=== PATIENT | male | born 1935 | race American Indian/Alaskan Native ===

== ENCOUNTER 2020-12-11 14:26 | Emergency (ER) | payer MEDICARE ==
--- NOTE | 2020-12-11 14:56 | Emergency Department Report ---
ED Syncope [facility] - General Stated Complaint: SYNCOPE Time Seen by Provider: 12/11/20 14:55 - History of Present Illness Initial Comments: Patient was brought in by EMS secondary to syncope. He was at dialysis. He was sitting. He passed out for about 15 seconds according to paramedics. According to EMS, the dialysis staff said that he was altered for about 20 minutes. They transported the patient here. He has not been altered for them. He has been awake and lucid. Patient has no recollection of the event. His only complaint is of nausea. He states that he just has an upset stomach. There is no chest pain or shortness of breath it is no back pain. Is no abdominal pain. He has not had any kind of fevers or chills. Patient states that he has passed out multiple times before. - Related Data Allergies/Adverse Reactions: Allergies No Known Allergies Allergy (Verified 12/11/20 16:04) ED Review of Systems ROS: Stated complaint: SYNCOPE Other details as noted in HPI ED Course Vital Signs 12/11/20 12/11/20 12/11/20 11:46 12:00 15:25 Pulse Rate 82 95 H 69 Blood Pressure 141/79 O2 Sat by Pulse 100 100 100 Oximetry 12/11/20 12/11/20 15:31 15:45 Pulse Rate 70 69 Blood Pressure O2 Sat by Pulse 100 99 Oximetry - Reevaluation(s) Reevaluation #1: 12/11/20 14:56 EMS was met. IV and labs ordered. ED Medical Decision Making - Lab Data Result diagrams: 12/11/20 15:04 12/11/20 15:04 - Medical Decision Making Labs of been noted. I did have a long discussion with the patient. He states that he feels well and would like to go home. We discussed the fact that his troponin was elevated. He states that it has been elevated before. He is not having chest pain. He does not feel short of breath. He does not want to be here. He states that he just wants to go home. We have had a discussion about the risk, benefits, and alternatives of this given the fact that we do not have old labs for comparison. He voices understanding and does have the capacity to make this decision at this time. He was invited to return but ultimately was discharged. Critical care attestation.: If time is entered above; I have spent that time in minutes in the direct care of this critically ill patient, excluding procedure time. ED Disposition Clinical Impression: ESRD (end stage renal disease) on dialysis, Elevated troponin Syncope Qualifiers: Syncope type: unspecified Qualified Code(s): R55 - Syncope and collapse Disposition: 01 HOME / SELF CARE / HOMELESS Is pt being admited?: No Condition: Stable Instructions: Syncope (ED), Dialysis, Syncope Additional Instructions: Drink plenty water. Return for problems. Follow-up with your regular doctor and your advocacy director. Follow-up for ongoing dialysis. Return for problems or concerns. Referrals: PRIMARY CAREMD [Referring] - 3-5 Days LONA MEMBRENO MD [Staff Physician] - 3-5 Days
[2020-12-11 15:24] LABS: Hemoglobin 10.2 gm/dl (11.8-15.2); Mean Corpuscular HGB Conc 34 % (32-34); Mean Corpuscular Volume 89 fl (84-94); Platelet Count 159 K/mm3 (140-440); Red Blood Count 3.37 M/mm3 (3.65-5.03)
[2020-12-11 16:19] LABS: Calcium 8.6 mg/dL (8.4-10.2)
[2020-12-11 19:55] VITALS: BP 172/72
--- NOTE | 2020-12-17 14:40 | Electrocardiograph Report ---
[facility] Test Date: 2020-12-11 Test Time: 15:20:31 Pat Name: SANA NAM Department: Room: Gender: M Rolled [employer] Lacer: : 1935 Requested By: ELYSSA TATE Order Number: [id number] Reading MD: Farrukh Rice Measurements Intervals [place] Rate: 68 P: 0 ND: 72 QRS: 13 QRSD: 96 T: 36 QT: 420 QTc: 449 Interpretive Statements Sinus rhythm No previous ECG available for comparison Electronically Signed On 12-17-2020 14:40:16 EDT by Farrukh Rice
== END 2020-12-11 20:04 | disposition home or self-care (01) ==
LOC: ED 14:26
DX: N18.6 End stage renal disease (principal); Z99.2 Dependence on renal dialysis; R55 Syncope and collapse; R79.89 Other specified abnormal findings of blood chemistry
CPT/HCPCS: 36415; 80048; 84484; 85027; 93005; 99283

== ENCOUNTER 2021-03-16 16:10 | Inpatient (IN) | payer MEDICARE ==
--- NOTE | 2021-03-16 16:49 | Emergency Department Report ---
ED General Adult HPI - General Stated complaint: BRADYCARDIA Time Seen by Provider: 03/16/21 16:44 Source: patient, old records reviewed Mode of arrival: Stretcher - History of Present Illness Initial comments: Chief complaint low heart rate HPI: This is an 85-year-old male with history of end-stage renal disease on hemodialysis Tuesday, GI bleed, CVA hypertension diabetes mellitus who presents with low heart rate at dialysis center. EMS reported heart rate 33 beats a minute. Patient normotensive. Patient is a poor historian. Unable to answer questions. Suspect dementia. On previous EKGs available in the electronic record, patient has had sinus rhythm and atrial fibrillation without bradycardia. -: unknown Severity scale (0 -10): 0 Consistency: constant Improves with: none Worsens with: none Associated Symptoms: denies other symptoms - Related Data Home Medications Medication Instructions Recorded Confirmed Last Taken AtorvaSTATin [Lipitor] 20 mg PO QHS 01/21/21 02/17/21 01/19/21 21:00 Acetaminophen [Acetaminophen TAB] 500 mg PO Q6HR 02/17/21 02/17/21 Unknown Brimonidine 0.15% [Alphagan P 1 drops OD BID 02/17/21 02/17/21 Unknown 0.15%] Cholecalciferol (Vitamin D3) 50,000 unit PO 2XW 02/17/21 02/17/21 Unknown [Vitamin D3 50,000UNIT CAP] Colloidal Oatmeal [Eucerin Eczema 226 gm TP Q4H 02/17/21 02/17/21 Unknown Relief] Docusate Sodium [Dok] 100 mg PO QDAY 02/17/21 02/17/21 Unknown Dorzolamide HCl/Timolol Maleat 1 drop OD BID 02/17/21 02/17/21 Unknown [Dorzolamide-Timolol Eye Drops] Famotidine [Pepcid] 20 mg PO BID 02/17/21 02/17/21 Unknown Hydrocortisone/Aloe Vera 0 gm TP TID 02/17/21 02/17/21 Unknown [Hydrocortisone-Aloe 0.5% Cream] Insulin Glargine,Hum.rec.anlog 9 units SQ QHS 02/17/21 02/17/21 Unknown [Lantus Solostar] LORazepam [Ativan] 1 mg PO Q6H PRN 02/17/21 02/17/21 Unknown Latanoprost 0.005% 1 drop OD QHS 02/17/21 02/17/21 Unknown Metoprolol Xl [Metoprolol 25 mg PO BID 02/17/21 02/17/21 Unknown SUCCINATE ER TAB] OLANZapine [Zyprexa] 5 mg PO QDAY 02/17/21 02/17/21 Unknown Phenyleph/Mineral Oil/Petrolat 28 gm RC QDAY 02/17/21 02/17/21 Unknown [Preparation H Ointment] Sevelamer Carbonate [Renvela] 1,600 mg PO TID 02/17/21 02/17/21 Unknown diphenhydrAMINE [Benadryl CAP] 25 mg PO 3XW 02/17/21 02/17/21 Unknown diphenhydrAMINE [Benadryl CAP] 25 mg PO Q6HR PRN 02/17/21 02/17/21 Unknown hydrOXYzine HCL [Atarax] 25 mg PO Q6HR PRN 02/17/21 02/17/21 Unknown lisinopriL [Lisinopril] 20 mg PO QDAY 02/17/21 02/17/21 Unknown Previous Rx's Medication Instructions Recorded Last Taken Type Lispro Insulin [HumaLOG] 0 unit SUB-Q ACHS units 02/01/21 Unknown Rx Sodium Chloride 0.9% Int [Sodium 10 ml IV BID syringe 02/01/21 Unknown Rx Chloride Flush Syringe 10 ml] diphenhydrAMINE/ZINC 2% [Banophen 1 applic TP Q8H PRN tube 02/01/21 Unknown Rx Anti-Itch] hydrOXYzine PAMOATE [Vistaril] 25 mg PO Q6H PRN capsule 02/01/21 Unknown Rx Allergies Allergy/AdvReac Type Severity Reaction Status Date / Time No Known Allergies Allergy Verified 12/11/20 16:04 ED Review of Systems ROS: Stated complaint: BRADYCARDIA Other details as noted in HPI Comment: Unobtainable due to pts medical conditions (senility, dementia) Constitutional: denies: chills, fever, malaise Respiratory: denies: cough, shortness of breath Cardiovascular: denies: chest pain Gastrointestinal: denies: abdominal pain, nausea, vomiting ED Past Medical Hx - Past Medical History Previous Medical History?: Yes Hx Hypertension: Yes Hx CVA: Yes Hx Diabetes: Yes Hx Renal Disease: Yes (dialysis , Th, Sat) Hx Dementia: Yes - Social History Smoking Status: Never Smoker Substance Use Type: None - Medications Home Medications: Home Medications Medication Instructions Recorded Confirmed Last Taken Type AtorvaSTATin [Lipitor] 20 mg PO QHS 01/21/21 02/17/21 01/19/21 21:00 History Lispro Insulin [HumaLOG] 0 unit SUB-Q ACHS units 02/01/21 02/17/21 Unknown Rx Sodium Chloride 0.9% Int [Sodium 10 ml IV BID syringe 02/01/21 02/17/21 Unknown Rx Chloride Flush Syringe 10 ml] diphenhydrAMINE/ZINC 2% [Banophen 1 applic TP Q8H PRN tube 02/01/21 02/17/21 Unknown Rx Anti-Itch] hydrOXYzine PAMOATE [Vistaril] 25 mg PO Q6H PRN capsule 02/01/21 02/17/21 Unknown Rx Acetaminophen [Acetaminophen TAB] 500 mg PO Q6HR 02/17/21 02/17/21 Unknown His tory Brimonidine 0.15% [Alphagan P 1 drops OD BID 02/17/21 02/17/21 Unknown History 0.15%] Cholecalciferol (Vitamin D3) 50,000 unit PO 2XW 02/17/21 02/17/21 Unknown History [Vitamin D3 50,000UNIT CAP] Colloidal Oatmeal [Eucerin Eczema 226 gm TP Q4H 02/17/21 02/17/21 Unknown History Relief] Docusate Sodium [Dok] 100 mg PO QDAY 02/17/21 02/17/21 Unknown History Dorzolamide HCl/Timolol Maleat 1 drop OD BID 02/17/21 02/17/21 Unknown History [Dorzolamide-Timolol Eye Drops] Famotidine [Pepcid] 20 mg PO BID 02/17/21 02/17/21 Unknown History Hydrocortisone/Aloe Vera 0 gm TP TID 02/17/21 02/17/21 Unknown History [Hydrocortisone-Aloe 0.5% Cream] Insulin Glargine,Hum.rec.anlog 9 units SQ QHS 02/17/21 02/17/21 Unknown History [Lantus Solostar] LORazepam [Ativan] 1 mg PO Q6H PRN 02/17/21 02/17/21 Unknown History Latanoprost 0.005% 1 drop OD QHS 02/17/21 02/17/21 Unknown History Metoprolol Xl [Metoprolol 25 mg PO BID 02/17/21 02/17/21 Unknown History SUCCINATE ER TAB] OLANZapine [Zyprexa] 5 mg PO QDAY 02/17/21 02/17/21 Unknown History Phenyleph/Mineral Oil/Petrolat 28 gm RC QDAY 02/17/21 02/17/21 Unknown History [Preparation H Ointment] Sevelamer Carbonate [Renvela] 1,600 mg PO TID 02/17/21 02/17/21 Unknown History diphenhydrAMINE [Benadryl CAP] 25 mg PO 3XW 02/17/21 02/17/21 Unknown History diphenhydrAMINE [Benadryl CAP] 25 mg PO Q6HR PRN 02/17/21 02/17/21 Unknown History hydrOXYzine HCL [Atarax] 25 mg PO Q6HR PRN 02/17/21 02/17/21 Unknown History lisinopriL [Lisinopril] 20 mg PO QDAY 02/17/21 02/17/21 Unknown History ED Physical Exam - General General appearance: alert, in no apparent distress - Head Head exam: Present: atraumatic, normocephalic - Eye Eye exam: Present: normal appearance - ENT ENT exam: Present: mucous membranes moist - Neck Neck exam: Present: normal inspection, full ROM - Respiratory Respiratory exam: Present: normal lung sounds bilaterally. Absent: respiratory distress, wheezes, rales, rhonchi - Cardiovascular Cardiovascular Exam: Present: normal rhythm, bradycardia, normal heart sounds. Absent: systolic murmur, diastolic murmur, rubs, gallop - GI/Abdominal GI/Abdominal exam: Present: soft, normal bowel sounds. Absent: distended, tenderness, guarding, rebound - Rectal Rectal exam: Present: deferred - Extremities Exam Extremities exam: Present: normal inspection - Neurological Exam Neurological exam: Present: alert, oriented X3 - Psychiatric Psychiatric exam: Present: normal affect, normal mood - Skin Skin exam: Present: warm, dry, intact, normal color. Absent: rash ED Course Vital Signs 03/16/21 03/16/21 03/16/21 16:13 16:29 18:00 Pulse Rate 33 L 33 L Respiratory 15 Rate Blood Pressure 116/49 116/49 Blood Pressure 110/45 [Right] O2 Sat by Pulse 99 100 Oximetry ED Medical Decision Making - Lab Data Result diagrams: 03/16/21 17:15 03/16/21 17:15 Laboratory Results - last 24 hr 03/16/21 03/16/21 03/16/21 17:15 17:15 17:15 WBC 3.6 L RBC 2.62 L Hgb 7.7 L Hct 23.9 L MCV 91 MCH 29 MCHC 32 RDW 21.8 H Plt Count 71 L Lymph % (Auto) 9.6 L [place] % (Auto) 5.2 Eos % (Auto) 3.5 Baso % (Auto) 0.3 Lymph # (Auto) 0.3 L [place] # (Auto) 0.2 Eos # (Auto) 0.1 Baso # (Auto) 0.0 Seg Neutrophils % 81.2 H Seg Neutrophils # 3.0 PT 14.5 INR 1.02 APTT 47.7 H Sodium 141 Potassium 3.5 L Chloride 106.1 Carbon Dioxide 23 Anion Gap 15 BUN 31 H Creatinine 4.1 H Estimated GFR 17 BUN/Creatinine Ratio 8 Glucose 143 H Calcium 8.8 Total Bilirubin < 0.20 AST 25 ALT 29 Alkaline Phosphatase 133 H Troponin T 0.047 H Total Protein 5.8 L Albumin 2.5 L Albumin/Globulin Ratio 0.8 Triglycerides 40 Cholesterol 77 LDL Cholesterol Direct 17 L HDL Cholesterol 54 Cholesterol/HDL Ratio 1.42 TSH 03/16/21 18:14 WBC RBC Hgb Hct MCV MCH MCHC RDW Plt Count Lymph % (Auto) [place] % (Auto) Eos % (Auto) Baso % (Auto) Lymph # (Auto) [place] # (Auto) Eos # (Auto) Baso # (Auto) Seg Neutrophils % Seg Neutrophils # PT INR APTT Sodium Potassium Chloride Carbon Dioxide Anion Gap BUN Creatinine Estimated GFR BUN/Creatinine Ratio Glucose Calcium Total Bilirubin AST ALT Alkaline Phosphatase Troponin T Total Protein Albumin Albumin/Globulin Ratio Triglycerides Cholesterol LDL Cholesterol Direct HDL Cholesterol Cholesterol/HDL Ratio TSH 3.850 - EKG Data -: EKG Interpreted by Me - EKG Data 03/16/21 17:21 EKG obtained 1704 EKG interpreted by me Junctional rhythm rate 30 bpm normal axis prolonged QTC no ST elevation - Radiology Data Radiology results: report reviewed Patient Name: SANA NAM JR Gender: Male Date of : 1935 Referring Provider: VEDA SHETH Organization: [facility] Accession Number: [id number] Requested Date: March 16, 2021 16:44 Report Status: Final Requested Procedure: 1 Procedure Description: XR chest 1V ap Modality: XR Findings Reporting MD: Trevor Kendall Dictation Time: March 16, 2021 16:13 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 COMPARISON: 02/16/2021 FINDINGS: SUPPORT DEVICES: Right chest wall port is stable. HEART /PULMONARY VASCULATURE: Heart is enlarged with pulmonary vasculature congestion. LUNGS / PLEURA: Patchy bibasilar airspace opacities likely reflect edema. No sizable pleural effusion. No pneumothorax. IMPRESSION: Patchy bibasilar airspace opacities likely reflect edema in the setting of CHF/volume overload. Unable to exclude superimposed pneumonia. Signer Name: Trevor Kendall MD Signed: 03/16/2021 4:13 PM Workstation Name: [id number] - Medical Decision Making Bradycardia with junctional rhythm differential diagnosis includes sick sinus syndrome, adverse effect of beta-blockade, myxedema coma, myocardial infarction. Potassium is normal. Self Contained Behavior Unit Teacher Dr. Edwards recommended pacer pads and observation. Admitted to stepdown in fair condition. External pacer pads in place. I discussed case with public health sanitarian Dr. Weathers who agreed to consult. TSH potassium normal. equivoval troponin, pulmonary edema on cxr Critical Care Time: Yes Critical care time in (mins) excluding proc time.: 40 Critical care attestation.: If time is entered above; I have spent that time in minutes in the direct care of this critically ill patient, excluding procedure time. 40 minutes of critical care time excluding procedures were used in the care of the patient. I came immediately to the bedside upon patient's arrival. I obtained history from EMS at the bedside. I discussed treatment plan with the nursing team members. I reviewed electronic record. Patient required multiple interventions and reassessments. ED Disposition Clinical Impression: Junctional rhythm, Sick sinus syndrome, End stage renal disease, Pulmonary pardeep a Disposition: 09 ADMITTED INPATIENT Is pt being admited?: Yes Does the pt Need Aspirin: No Condition: Fair Instructions: Pulmonary Edema (ED)
--- NOTE | 2021-03-16 17:17 | XRay Report ---
XR chest 1V ap INDICATION / CLINICAL INFORMATION: bradycardia. COMPARISON: 02/16/2021 FINDINGS: SUPPORT DEVICES: Right chest wall port is stable. HEART /PULMONARY VASCULATURE: Heart is enlarged with pulmonary vasculature congestion. LUNGS / PLEURA: Patchy bibasilar airspace opacities likely reflect edema. No sizable pleural effusion . No pneumothorax. IMPRESSION: Patchy bibasilar airspace opacities likely reflect edema in the setting of CHF/volume overload. Unabl e to exclude superimposed pneumonia. Signer Name: Trevor Kendall MD Signed: 03/16/2021 5:13 PM Workstation Name: [id number]
[2021-03-16 17:30] LABS: Hematocrit 23.9 % (35.5-45.6); Hemoglobin 7.7 gm/dl (11.8-15.2); Mean Corpuscular HGB Conc 32 % (32-34); Mean Corpuscular Volume 91 fl (84-94); Red Blood Count 2.62 M/mm3 (3.65-5.03)
[2021-03-16 17:33] LABS: Basophils % (Auto) 0.3 % (0.0-1.8); Eosinophils % (Auto) 3.5 % (0.0-4.3); Lymphocytes % (Auto) 9.6 % (13.4-35.0); Monocytes % (Auto) 5.2 % (0.0-7.3); Platelet Count 71 K/mm3 (140-440); Red Cell Distribution Width 21.8 % (13.2-15.2)
[2021-03-16 17:34] LABS: Eosinophils # (Auto) 0.1 K/mm3 (0.0-0.4); Lymphocytes # (Auto) 0.3 K/mm3 (1.2-5.4); Monocytes # (Auto) 0.2 K/mm3 (0.0-0.8)
[2021-03-16 17:40] LABS: INR 1.02 (0.87-1.13)
[2021-03-16 17:41] LABS: Partial Thromboplastin Time 47.7 Sec. (24.2-36.6)
[2021-03-16 17:55] LABS: Alanine Aminotransferase 29 units/L (7-56); Albumin 2.5 g/dL (3.9-5); Blood Urea Nitrogen 31 mg/dL (9-20); Calcium 8.8 mg/dL (8.4-10.2); Hemolysis Index 6
[2021-03-16 17:56] LABS: BUN/Creatinine Ratio 8
[2021-03-16 18:06] LABS: Chol/HDL Ratio 1.42 %; HDL Cholesterol 54 mg/dL (40-59); LDL Cholesterol,Direct 17 mg/dL (50-130)
[2021-03-16] MEDS ORDERED: ACETAMINOPHEN 325 MG TAB PO PRN (18:54)
[2021-03-16] MEDS ORDERED: oxyCODONE /ACETAMINOPHEN 5-325MG TAB PO PRN (18:54)
[2021-03-16] MEDS ORDERED: ONDANSETRON 4 MG/2 ML INJ IV PRN (18:54)
[2021-03-16] MEDS ORDERED: HYDROmorphone 1 MG/1 ML INJ IV PRN (18:54)
[2021-03-16] MEDS ORDERED: ALBUTEROL 2.5 MG/3 ML NEBU IH PRN (18:54)
[2021-03-16] MEDS ORDERED: hydrOXYzine HCL 25 MG TAB PO PRN (18:57)
[2021-03-16] MEDS ORDERED: LORazepam 1 MG TAB PO PRN (18:57)
[2021-03-16] MEDS ORDERED: diphenhydrAMINE/ZINC ACET 2% CREAM 28.4 GM TP PRN (18:57)
--- NOTE | 2021-03-16 19:20 | History and Physical Report ---
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 Patient has diminished cognition and is unable to provide detailed history. Patient history provided as per ED staff, EMS staff, as well as personal detention staff. As per personal detention staff the patient was sent to dialysis today. Patient was found to have a heart rate in the 30s while undergoing dialysis. In his usual state of health prior to his dialysis. Patient returned from dialysis and was found to be confused and "not acting like himself". Patient experienced worsening symptoms over the ensuing timeframe. EMS was notified and upon arrival the patient was found to be in distress and subsequently transported to [facility] for further care and evaluation of the aforementioned symptoms. The patient was seen and evaluated in the emergency department. All lab and imaging studies reviewed. Patient found to have a systolic blood pressure in the 90s as well as clinical symptoms consistent with sick sinus syndrome. Patient with chest x-ray and was found to have evidence of pneumonia, metabolic encephalopathy, end-stage renal disease. Patient admitted to telemetry floor and initiated on pneumonia protocol. Nephrology team consulted in ED. Cardiology team consulted in ED. Patient is confused at time of my evaluation but has a positive gag reflex and is able to protect his airway. Per admission on 02/17/2021 reviewed. All medication listed at time of admission has been reconciled. Advanced care planning conducted in ED. Past History Past Medical History: diabetes, ESRD, hypertension, stroke Past Surgical History: Other (Dialysis access) Social history: . denies: smoking, alcohol abuse, prescription drug abuse Family history: diabetes, hypertension Medications and Allergies Allergies Allergy/AdvReac Type Severity Reaction Status Date / Time No Known Allergies Allergy Verified 12/11/20 16:04 Home Medications Medication Instructions Recorded Confirmed Last Taken Type AtorvaSTATin [Lipitor] 20 mg PO QHS 01/21/21 02/17/21 01/19/21 21:00 History Lispro Insulin [HumaLOG] 0 unit SUB-Q ACHS units 02/01/21 02/17/21 Unknown Rx Sodium Chloride 0.9% Int [Sodium 10 ml IV BID syringe 02/01/21 02/17/21 Unknown Rx Chloride Flush Syringe 10 ml] diphenhydrAMINE/ZINC 2% [Banophen 1 applic TP Q8H PRN tube 02/01/21 02/17/21 Unknown Rx Anti-Itch] hydrOXYzine PAMOATE [Vistaril] 25 mg PO Q6H PRN capsule 02/01/21 02/17/21 Unknown Rx Acetaminophen [Acetaminophen TAB] 500 mg PO Q6HR 02/17/21 02/17/21 Unknown History Brimonidine 0.15% [Alphagan P 1 drops OD BID 02/17/21 02/17/21 Unknown History 0.15%] Cholecalciferol (Vitamin D3) 50,000 unit PO 2XW 02/17/21 02/17/21 Unknown History [Vitamin D3 50,000UNIT CAP] Colloidal Oatmeal [Eucerin Eczema 226 gm TP Q4H 02/17/21 02/17/21 Unknown History Relief] Docusate Sodium [Dok] 100 mg PO QDAY 02/17/21 02/17/21 Unknown History Dorzolamide HCl/Timolol Maleat 1 drop OD BID 02/17/21 02/17/21 Unknown History [Dorzolamide-Timolol Eye Drops] Famotidine [Pepcid] 20 mg PO BID 02/17/21 02/17/21 Unknown History Hydrocortisone/Aloe Vera 0 gm TP TID 02/17/21 02/17/21 Unknown History [Hydrocortisone-Aloe 0.5% Cream] Insulin Glargine,Hum.rec.anlog 9 units SQ QHS 02/17/21 02/17/21 Unknown History [Lantus Solostar] LORazepam [Ativan] 1 mg PO Q6H PRN 02/17/21 02/17/21 Unknown History Latanoprost 0.005% 1 drop OD QHS 02/17/21 02/17/21 Unknown History Metoprolol Xl [Metoprolol 25 mg PO BID 02/17/21 02/17/21 Unknown History SUCCINATE ER TAB] OLANZapine [Zyprexa] 5 mg PO QDAY 02/17/21 02/17/21 Unknown History Phenyleph/Mineral Oil/Petrolat 28 gm RC QDAY 02/17/21 02/17/21 Unknown History [Preparation H Ointment] Sevelamer Carbonate [Renvela] 1,600 mg PO TID 02/17/21 02/17/21 Unknown History diphenhydrAMINE [Benadryl CAP] 25 mg PO 3XW 02/17/21 02/17/21 Unknown History diphenhydrAMINE [Benadryl CAP] 25 mg PO Q6HR PRN 02/17/21 02/17/21 Unknown History hydrOXYzine HCL [Atarax] 25 mg PO Q6HR PRN 02/17/21 02/17/21 Unknown History lisinopriL [Lisinopril] 20 mg PO QDAY 02/17/21 02/17/21 Unknown History Active Meds: Active Medications Acetaminophen (Acetaminophen 325 Mg Tab) 650 mg PO Q4H PRN PRN Reason: Pain MILD(1-3)/Fever >100.5/LOCKE Albuterol (Albuterol 2.5 Mg/3 Ml Nebu) 2.5 mg IH Q4HRT PRN PRN Reason: Shortness Of Breath Atorvastatin Calcium (Atorvastatin 20 Mg Tab) 20 mg PO QHS [facility] Docusate Sodium (Docusate Sodium 100 Mg Cap) 100 mg PO QDAY [facility] Famotidine (Famotidine 20 Mg Tab) 20 mg PO BID [facility] Hydromorphone HCl (Hydromorphone 1 Mg/1 Ml Inj) 0.5 mg IV Q23H PRN PRN Reason: Pain , Severe (7-10) Hydroxyzine HCl (Hydroxyzine Hcl 25 Mg Tab) 25 mg PO Q6HR PRN PRN Reason: Itching Ceftriaxone Sodium (Rocephin/Ns 2 Gm/100 Ml) 2 gm in 100 mls @ 200 mls/hr IV Q24H [facility]; Protocol Azithromycin (Zithromax/Ns) 500 mg in 250 mls @ 250 mls/hr IV Q24H [facility]; Protocol Insulin Glargine (Insulin Glargine 100 Units/Ml) 9 units SUB-Q QHS [facility] Latanoprost (Latanoprost 0.005% Ophth Soln 2.5 Ml) 1 drops OD QHS [facility] Lisinopril (Lisinopril 20 Mg Tab) 20 mg PO QDAY [facility] Lorazepam (Lorazepam 1 Mg Tab) 1 mg PO Q6H PRN PRN Reason: Anxiety Metoprolol Succinate (Metoprolol Succinate Xl 25 Mg Tab) 25 mg PO BID [facility] Miscellaneous Medication (Dorzolamide Hcl/Timolol Maleat [Dorzolamide-Timolol Eye Drops]) 1 drop OD BID [facility] Olanzapine (Olanzapine 5 Mg Tab) 5 mg PO QDAY [facility] Ondansetron HCl (Ondansetron 4 Mg/2 Ml Inj) 4 mg IV Q8H PRN PRN Reason: Nausea And Vomiting Oxycodone/Acetaminophen (Oxycodone /Acetaminophen 5-325mg Tab) 1 tab PO Q16H PRN PRN Reason: Pain, Moderate (4-6) Phenyleph/Shark Oil/Min Oil/Petrol (Pe/Mo/Pet,Wh 10 Applic/28 Gm Tube) 1 applic ID QDAY [facility] Sevelamer Carbonate (Sevelamer Carbonate 800 Mg Tab) 1,600 mg PO TID [facility] Sodium Chloride (Sodium Chloride 0.9% 10 Ml Flush Syringe) 10 ml IV BID [facility] Sodium Chloride (Sodium Chloride 0.9% 10 Ml Flush Syringe) 10 ml IV PRN PRN PRN Reason: LINE FLUSH Zinc Acetate/Diphenhydramine (Diphenhydramine/Zinc Acet 2% Cream 28.4 Gm) 1 applic TP Q8H PRN PRN Reason: Itching Review of Systems ROS unobtainable: due to mental status Exam - Constitutional Vitals: Temp Pulse Resp BP Pulse Ox 33 L 15 116/49 100 03/16/21 18:00 03/16/21 16:13 03/16/21 18:00 03/16/21 18:00 General appearance: Present: mild distress, obese - EENT Eyes: Present: PERRL ENT: hearing intact, clear oral mucosa - Neck Neck: Present: supple, normal ROM - Respiratory Respiratory effort: normal Respiratory: bilateral: CTA - Cardiovascular Heart Sounds: Present: S1 & S2. Absent: rub, click - Extremities Extremities: pulses symmetrical, No edema Peripheral Pulses: within normal limits - Abdominal General gastrointestinal: Present: soft, non-tender, non-distended, normal bowel sounds Male genitourinary: Present: normal - Integumentary Integumentary: Present: clear, warm, dry - Musculoskeletal Musculoskeletal: strength equal bilaterally, generalized weakness - Psychiatric Psychiatric: no appropriate mood/affect, no intact judgment & insight, no memory intact - Neurologic Neurologic: CNII-XII intact, no focal deficits, moves all extremities, no gait normal HEART Score - HEART Score Troponin: Troponin T 0.047 ng/mL (0.00-0.029) H 03/16/21 17:15 Results - Labs CBC & Chem 7: 03/16/21 17:15 03/16/21 17:15 Labs: Abnormal lab results 03/16/21 03/16/21 03/16/21 Range/Units 17:15 17:15 17:15 WBC 3.6 L (4.5-11.0) K/mm3 RBC 2.62 L (3.65-5.03) M/mm3 Hgb 7.7 L (11.8-15.2) gm/dl Hct 23.9 L (35.5-45.6) % RDW 21.8 H (13.2-15.2) % Plt Count 71 L (140-440) K/mm3 Lymph % (Auto) 9.6 L (13.4-35.0) % Lymph # (Auto) 0.3 L (1.2-5.4) K/mm3 Seg Neutrophils % 81.2 H (40.0-70.0) % APTT 47.7 H (24.2-36.6) Sec. Potassium 3.5 L (3.6-5.0) mmol/L BUN 31 H (9-20) mg/dL Creatinine 4.1 H (0.8-1.3) mg/dL Glucose 143 H (75-100) mg/dL Alkaline Phosphatase 133 H (35-129) units/L Troponin T 0.047 H (0.00-0.029) ng/mL Total Protein 5.8 L (6.3-8.2) g/dL Albumin 2.5 L (3.9-5) g/dL LDL Cholesterol Direct 17 L (50-130) mg/dL Assessment and Plan - Patient Problems (1) Pneumonia Current Visit: Yes Status: Acute Plan to address problem: Pneumonia protocol: Chest x-ray, CBC, CMP, supplemental oxygen, pulse oximetry, nebulizer therapy, IV antibiotic therapy, pulmonary toilet. (2) End stage renal disease Current Visit: Yes Status: Acute Plan to address problem: Nephrology team consulted in ED, dialysis as per renal team, monitor fluid balance, blood pressure control. (3) Sick sinus syndrome Current Visit: Yes Status: Acute Plan to address problem: Cardiology team consulted. Telemetry monitoring, further care and evaluation as per cardiology team. (4) Obesity hypoventilation syndrome Current Visit: Yes Status: Acute Plan to address problem: Balanced diet, increase physical activity discharge, (5) DVT prophylaxis Current Visit: Yes Status: Acute Plan to address problem: SCD to bilateral lower extremities while in bed (6) Advance care planning Current Visit: Yes Status: Acute Plan to address problem: Disease education doctor, care plan discussed, diagnosis discussed, prognosis discussed, patient is full code. Patient acknowledges understanding and ag reement with care plan, +30 minutes.
[2021-03-16] MEDS ORDERED: diphenhydrAMINE 50 MG/ML VIAL IV ONE (21:55)
[2021-03-16] MEDS ORDERED: INSULIN GLARGINE 100 UNITS/ML SUB-Q SCH (22:00)
[2021-03-16] MEDS ORDERED: NON-FORMULARY EACH (Insulin Glargine,Hum.Rec.Anlog [Lantus Solostar] 100 UNIT/ML Insuln.Pe SQ SCH (22:00)
[2021-03-16] MEDS ORDERED: FAMOTIDINE 20 MG TAB PO SCH (22:00)
[2021-03-16] MEDS: cefTRIAXone/NS 2 GM/100 ML 2 GM/100 ML BAG IV SCH (22:10)
[2021-03-17] MEDS: AZITHROMYCIN/NS 500 MG/250 ML 500 MG/250 ML BAG IV SCH ×2 (00:11→22:00)
[2021-03-17] MEDS: METOPROLOL SUCCINATE XL 25 MG TAB PO SCH ×2 (00:33→17:33)
[2021-03-17] MEDS: NON-FORMULARY EACH (Dorzolamide Hcl/Timolol Maleat [Dorzolamide-Timolol Eye Drops] 10 ML D OD SCH ×3 (00:35→22:41)
[2021-03-17] MEDS: SEVELAMER CARBONATE 800 MG TAB PO SCH ×4 (00:35→21:25)
--- NOTE | 2021-03-17 09:19 | Consultation ---
History of Present Illness - Reason for Consult Consult date: 03/17/21 end stage renal disease - History of Present Illness is an 85yo with ESRD on HD MWF, dementia, hypertension, legally blind who presented to the ED via EMS. During dialysis treatment, patient with HR in 30s. He was also noted to have change in mental status. Upon arrival to the ED, patient was hypotensive with SBP in 90s. He has been admitted for further management. Presently, patient with HR in 50s. He is currently on dopamine gtt. Past History Past Medical History: diabetes, ESRD, hypertension, stroke Past Surgical History: Other (Dialysis access) Social history: . denies: smoking, alcohol abuse, prescription drug abuse Family history: diabetes, hypertension Medications and Allergies Allergies Allergy/AdvReac Type Severity Reaction Status Date / Time No Known Allergies Allergy Verified 12/11/20 16:04 Home Medications Medication Instructions Recorded Confirmed Last Taken Type AtorvaSTATin [Lipitor] 20 mg PO QHS 01/21/21 02/17/21 01/19/21 21:00 History Lispro Insulin [HumaLOG] 0 unit SUB-Q ACHS units 02/01/21 02/17/21 Unknown Rx Sodium Chloride 0.9% Int [Sodium 10 ml IV BID syringe 02/01/21 02/17/21 Unknown Rx Chloride Flush Syringe 10 ml] diphenhydrAMINE/ZINC 2% [Banophen 1 applic TP Q8H PRN tube 02/01/21 02/17/21 Unknown Rx Anti-Itch] hydrOXYzine PAMOATE [Vistaril] 25 mg PO Q6H PRN capsule 02/01/21 02/17/21 Unknown Rx Acetaminophen [Acetaminophen TAB] 500 mg PO Q6HR 02/17/21 02/17/21 Unknown History Brimonidine 0.15% [Alphagan P 1 drops OD BID 02/17/21 02/17/21 Unknown History 0.15%] Cholecalciferol (Vitamin D3) 50,000 unit PO 2XW 02/17/21 02/17/21 Unknown History [Vitamin D3 50,000UNIT CAP] Colloidal Oatmeal [Eucerin Eczema 226 gm TP Q4H 02/17/21 02/17/21 Unknown History Relief] Docusate Sodium [Dok] 100 mg PO QDAY 02/17/21 02/17/21 Unknown History Dorzolamide HCl/Timolol Maleat 1 drop OD BID 02/17/21 02/17/21 Unknown History [Dorzolamide-Timolol Eye Drops] Famotidine [Pepcid] 20 mg PO BID 02/17/21 02/17/21 Unknown History Hydrocortisone/Aloe Vera 0 gm TP TID 02/17/21 02/17/21 Unknown History [Hydrocortisone-Aloe 0.5% Cream] Insulin Glargine,Hum.rec.anlog 9 units SQ QHS 02/17/21 02/17/21 Unknown History [Lantus Solostar] LORazepam [Ativan] 1 mg PO Q6H PRN 02/17/21 02/17/21 Unknown History Latanoprost 0.005% 1 drop OD QHS 02/17/21 02/17/21 Unknown History Metoprolol Xl [Metoprolol 25 mg PO BID 02/17/21 02/17/21 Unknown History SUCCINATE ER TAB] OLANZapine [Zyprexa] 5 mg PO QDAY 02/17/21 02/17/21 Unknown History Phenyleph/Mineral Oil/Petrolat 28 gm RC QDAY 02/17/21 02/17/21 Unknown History [Preparation H Ointment] Sevelamer Carbonate [Renvela] 1,600 mg PO TID 02/17/21 02/17/21 Unknown History diphenhydrAMINE [Benadryl CAP] 25 mg PO 3XW 02/17/21 02/17/21 Unknown History diphenhydrAMINE [Benadryl CAP] 25 mg PO Q6HR PRN 02/17/21 02/17/21 Unknown History hydrOXYzine HCL [Atarax] 25 mg PO Q6HR PRN 02/17/21 02/17/21 Unknown History lisinopriL [Lisinopril] 20 mg PO QDAY 02/17/21 02/17/21 Unknown History Active Meds: Active Medications Acetaminophen (Acetaminophen 325 Mg Tab) 650 mg PO Q4H PRN PRN Reason: Pain MILD(1-3)/Fever >100.5/LOCKE Albuterol (Albuterol 2.5 Mg/3 Ml Nebu) 2.5 mg IH Q4HRT PRN PRN Reason: Shortness Of Breath Atorvastatin Calcium (Atorvastatin 20 Mg Tab) 20 mg PO QHS [facility] Last Admin: 03/17/21 00:33 Dose: Not Given Docusate Sodium (Docusate Sodium 100 Mg Cap) 100 mg PO QDAY [facility] Famotidine (Famotidine 10 Mg Tab) 10 mg PO BID [facility] Hydromorphone HCl (Hydromorphone 1 Mg/1 Ml Inj) 0.5 mg IV Q23H PRN PRN Reason: Pain , Severe (7-10) Hydroxyzine HCl (Hydroxyzine Hcl 25 Mg Tab) 25 mg PO Q6HR PRN PRN Reason: Itching Ceftriaxone Sodium (Rocephin/Ns 2 Gm/100 Ml) 2 gm in 100 mls @ 200 mls/hr IV Q24H [facility]; Protocol Last Admin: 03/16/21 22:10 Dose: 200 mls/hr Azithromycin (Zithromax/Ns) 500 mg in 250 mls @ 250 mls/hr IV Q24H [facility]; Protocol Last Admin: 03/17/21 00:11 Dose: 250 mls/hr Insulin Glargine (Insulin Glargine 100 Units/Ml) 9 units SUB-Q QHS [facility] Last Admin: 03/17/21 00:11 Dose: 9 units Latanoprost (Latanoprost 0.005% Ophth Soln 2.5 Ml) 1 drops OD QHS [facility] Lisinopril (Lisinopril 20 Mg Tab) 20 mg PO QDAY [facility] Lorazepam (Lorazepam 1 Mg Tab) 1 mg PO Q6H PRN PRN Reason: Anxiety Metoprolol Succinate (Metoprolol Succinate Xl 25 Mg Tab) 25 mg PO BID [facility] Last Admin: 03/17/21 00:33 Dose: Not Given Miscellaneous Medication (Dorzolamide Hcl/Timolol Maleat [Dorzolamide-Timolol Eye Drops]) 1 drop OD BID [facility] Last Admin: 03/17/21 00:35 Dose: Not Given Olanzapine (Olanzapine 5 Mg Tab) 5 mg PO QDAY [facility] Ondansetron HCl (Ondansetron 4 Mg/2 Ml Inj) 4 mg IV Q8H PRN PRN Reason: Nausea And Vomiting Oxycodone/Acetaminophen (Oxycodone /Acetaminophen 5-325mg Tab) 1 tab PO Q16H PRN PRN Reason: Pain, Moderate (4-6) Phenyleph/Shark Oil/Min Oil/Petrol (Pe/Mo/Pet,Wh 10 Applic/28 Gm Tube) 1 applic OR QDAY [facility] Sevelamer Carbonate (Sevelamer Carbonate 800 Mg Tab) 1,600 mg PO TID [facility] Last Admin: 03/17/21 00:35 Dose: Not Given Sodium Chloride (Sodium Chloride 0.9% 10 Ml Flush Syringe) 10 ml IV BID [facility] Last Admin: 03/17/21 00:33 Dose: 10 ml Sodium Chloride (Sodium Chloride 0.9% 10 Ml Flush Syringe) 10 ml IV PRN PRN PRN Reason: LINE FLUSH Zinc Acetate/Diphenhydramine (Diphenhydramine/Zinc Acet 2% Cream 28.4 Gm) 1 applic TP Q8H PRN PRN Reason: Itching Review of Systems ROS unobtainable: due to mental status Exam - Vital Signs Vital signs: Vital Signs Pulse Resp BP Pulse Ox 33 L 15 110/45 99 03/16/21 16:13 03/16/21 16:13 03/16/21 16:13 03/16/21 16:13 - General Appearance General appearance: well-developed, well-nourished EENT: ATNC Respiratory: Decreased Breath Sounds Heart: bradycardia Gastrointestinal: Absent: tenderness, distended Integumentary: rash Musculoskeletal: Present: other Results - Lab Results 03/17/21 10:11 03/17/21 10:11 Most recent lab results Calcium 8.8 mg/dL (8.4-10.2) 03/16/21 17:15 Assessment and Plan Impression * End stage renal disease * Bradycardia secondary to beta brea vs other * Acute encephlopathy * 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 No acute need for HD today * Will schedule HD for tomorrow pending hemodynamic stability - resolution/improvement in bradycardia * Cardiology following * Transfuse pRBC - Hb <7 * Dose medications for renal function * Avoid potential nephrotoxins
[2021-03-17] MEDS ORDERED: NON-FORMULARY EACH (Docusate Sodium [Dok] 100 MG Tablet) PO SCH (10:00)
[2021-03-17] MEDS ORDERED: LISINOPRIL 20 MG TAB PO SCH (10:00)
[2021-03-17 11:03] LABS: Basophils % (Auto) 0.7 % (0.0-1.8); Eosinophils # (Auto) 0.1 K/mm3 (0.0-0.4); Eosinophils % (Auto) 1.9 % (0.0-4.3); Hematocrit 20.4 % (35.5-45.6); Hemoglobin 6.6 gm/dl (11.8-15.2); Lymphocytes # (Auto) 0.3 K/mm3 (1.2-5.4); Lymphocytes % (Auto) 6.5 % (13.4-35.0); Mean Corpuscular HGB Conc 33 % (32-34); Mean Corpuscular Volume 90 fl (84-94); Monocytes # (Auto) 0.2 K/mm3 (0.0-0.8); Monocytes % (Auto) 3.9 % (0.0-7.3); Red Blood Count 2.26 M/mm3 (3.65-5.03)
[2021-03-17 11:08] LABS: Platelet Count 68 K/mm3 (140-440); Red Cell Distribution Width 21.2 % (13.2-15.2)
[2021-03-17] MEDS ORDERED: DOPamine 800 MG/D5W 250ML 800 MG/250 ML BAG IV ONE (11:15)
[2021-03-17 11:26] LABS: Calcium 8.5 mg/dL (8.4-10.2)
[2021-03-17] MEDS: DOCUSATE SODIUM 100 MG CAP PO SCH (11:30)
[2021-03-17] MEDS: PE/MO/PET,WH 10 APPLIC/28 GM TUBE PR SCH (11:30)
[2021-03-17] MEDS: FAMOTIDINE 10 MG TAB PO SCH ×2 (11:30→22:48)
--- NOTE | 2021-03-17 13:18 | Consultation ---
History of Present Illness Consult date: 03/17/21 Requesting physician: VEDA SHETH Consult reason: other (Sick sinus syndrome) History of present illness: Patient is a 85-year-old male with a past medical history of end-stage renal disease on hemodialysis, hypertension, history of CVA, vascular dementia, cerebral atherosclerosis, and legally blind who was brought to the ED due to bradycardia during hemodialysis session. History is taken from chart due to patient altered mental status and unable to provide history. Per documentation patient went to hemodialysis and during session patient heart rate dropped into the 30s. When patient returned from dialysis patient was said to be confused. EMS was notified and patient was transported to [facility]. During hospital stay patient was found to have pneumonia on chest x-ra y, be bradycardic, and be hypothermic requiring bear hugger. Patient previously seen by our group for admission in January. Cardiology is consulted for sick sinus syndrome Past History Past Medical History: diabetes, ESRD, hypertension, stroke Past Surgical History: Other (Dialysis access) Social history: . denies: smoking, alcohol abuse, prescription drug abuse Family history: diabetes, hypertension Medications and Allergies Allergies Allergy/AdvReac Type Severity Reaction Status Date / Time No Known Allergies Allergy Verified 12/11/20 16:04 Home Medications Medication Instructions Recorded Confirmed Last Taken Type AtorvaSTATin [Lipitor] 20 mg PO QHS 01/21/21 02/17/21 01/19/21 21:00 History Lispro Insulin [HumaLOG] 0 unit SUB-Q ACHS units 02/01/21 02/17/21 Unknown Rx Sodium Chloride 0.9% Int [Sodium 10 ml IV BID syringe 02/01/21 02/17/21 Unknown Rx Chloride Flush Syringe 10 ml] diphenhydrAMINE/ZINC 2% [Banophen 1 applic TP Q8H PRN tube 02/01/21 02/17/21 Unknown Rx Anti-Itch] hydrOXYzine PAMOATE [Vistaril] 25 mg PO Q6H PRN capsule 02/01/21 02/17/21 Unknown Rx Acetaminophen [Acetaminophen TAB] 500 mg PO Q6HR 02/17/21 02/17/21 Unknown History Brimonidine 0.15% [Alphagan P 1 drops OD BID 02/17/21 02/17/21 Unknown History 0.15%] Cholecalciferol (Vitamin D3) 50,000 unit PO 2XW 02/17/21 02/17/21 Unknown History [Vitamin D3 50,000UNIT CAP] Colloidal Oatmeal [Eucerin Eczema 226 gm TP Q4H 02/17/21 02/17/21 Unknown History Relief] Docusate Sodium [Dok] 100 mg PO QDAY 02/17/21 02/17/21 Unknown History Dorzolamide HCl/Timolol Maleat 1 drop OD BID 02/17/21 02/17/21 Unknown History [Dorzolamide-Timolol Eye Drops] Famotidine [Pepcid] 20 mg PO BID 02/17/21 02/17/21 Unknown History Hydrocortisone/Aloe Vera 0 gm TP TID 02/17/21 02/17/21 Unknown History [Hydrocortisone-Aloe 0.5% Cream] Insulin Glargine,Hum.rec.anlog 9 units SQ QHS 02/17/21 02/17/21 Unknown History [Lantus Solostar] LORazepam [Ativan] 1 mg PO Q6H PRN 02/17/21 02/17/21 Unknown History Latanoprost 0.005% 1 drop OD QHS 02/17/21 02/17/21 Unknown History Metoprolol Xl [Metoprolol 25 mg PO BID 02/17/21 02/17/21 Unknown History SUCCINATE ER TAB] OLANZapine [Zyprexa] 5 mg PO QDAY 02/17/21 02/17/21 Unknown History Phenyleph/Mineral Oil/Petrolat 28 gm RC QDAY 02/17/21 02/17/21 Unknown History [Preparation H Ointment] Sevelamer Carbonate [Renvela] 1,600 mg PO TID 02/17/21 02/17/21 Unknown History diphenhydrAMINE [Benadryl CAP] 25 mg PO 3XW 02/17/21 02/17/21 Unknown History diphenhydrAMINE [Benadryl CAP] 25 mg PO Q6HR PRN 02/17/21 02/17/21 Unknown History hydrOXYzine HCL [Atarax] 25 mg PO Q6HR PRN 02/17/21 02/17/21 Unknown History lisinopriL [Lisinopril] 20 mg PO QDAY 02/17/21 02/17/21 Unknown History Active Meds: Active Medications Acetaminophen (Acetaminophen 325 Mg Tab) 650 mg PO Q4H PRN PRN Reason: Pain MILD(1-3)/Fever >100.5/LOCKE Albuterol (Albuterol 2.5 Mg/3 Ml Nebu) 2.5 mg IH Q4HRT PRN PRN Reason: Shortness Of Breath Atorvastatin Calcium (Atorvastatin 20 Mg Tab) 20 mg PO QHS [facility] Last Admin: 03/17/21 00:33 Dose: Not Given Docusate Sodium (Docusate Sodium 100 Mg Cap) 100 mg PO QDAY [facility] Last Admin: 03/17/21 11:30 Dose: Not Given Famotidine (Famotidine 10 Mg Tab) 10 mg PO BID [facility] Last Admin: 03/17/21 11:30 Dose: Not Given Hydromorphone HCl (Hydromorphone 1 Mg/1 Ml Inj) 0.5 mg IV Q23H PRN PRN Reason: Pain , Severe (7-10) Hydroxyzine HCl (Hydroxyzine Hcl 25 Mg Tab) 25 mg PO Q6HR PRN PRN Reason: Itching Ceftriaxone Sodium (Rocephin/Ns 2 Gm/100 Ml) 2 gm in 100 mls @ 200 mls/hr IV Q24H [facility]; Protocol Last Admin: 03/16/21 22:10 Dose: 200 mls/hr Azithromycin (Zithromax/Ns) 500 mg in 250 mls @ 250 mls/hr IV Q24H [facility]; Protocol Last Admin: 03/17/21 00:11 Dose: 250 mls/hr Dopamine HCl 800 mg/ Dextrose 250 mls @ 3.113 mls/hr IV TITR [facility]; Protocol Insulin Glargine (Insulin Glargine 100 Units/Ml) 9 units SUB-Q QHS [facility] Last Admin: 03/17/21 00:11 Dose: 9 units Latanoprost (Latanoprost 0.005% Ophth Soln 2.5 Ml) 1 drops OD QHS [facility] Lorazepam (Lorazepam 1 Mg Tab) 1 mg PO Q6H PRN PRN Reason: Anxiety Miscellaneous Medication (Dorzolamide Hcl/Timolol Maleat [Dorzolamide-Timolol Eye Drops]) 1 drop OD BID [facility] Last Admin: 03/17/21 11:30 Dose: Not Given Olanzapine (Olanzapine 5 Mg Tab) 5 mg PO QDAY [facility] Last Admin: 03/17/21 11:31 Dose: Not Given Ondansetron HCl (Ondansetron 4 Mg/2 Ml Inj) 4 mg IV Q8H PRN PRN Reason: Nausea And Vomiting Oxycodone/Acetaminophen (Oxycodone /Acetaminophen 5-325mg Tab) 1 tab PO Q16H PRN PRN Reason: Pain, Moderate (4-6) Phenyleph/Shark Oil/Min Oil/Petrol (Pe/Mo/Pet,Wh 10 Applic/28 Gm Tube) 1 applic TX QDAY [facility] Last Admin: 03/17/21 11:30 Dose: 1 applic Sevelamer Carbonate (Sevelamer Carbonate 800 Mg Tab) 1,600 mg PO TID [facility] Last Admin: 03/17/21 11:30 Dose: Not Given Sodium Chloride (Sodium Chloride 0.9% 10 Ml Flush Syringe) 10 ml IV BID [facility] Last Admin: 03/17/21 11:30 Dose: 10 ml Sodium Chloride (Sodium Chloride 0.9% 10 Ml Flush Syringe) 10 ml IV PRN PRN PRN Reason: LINE FLUSH Zinc Acetate/Diphenhydramine (Diphenhydramine/Zinc Acet 2% Cream 28.4 Gm) 1 applic TP Q8H PRN PRN Reason: Itching Review of Systems ROS unobtainable: due to mental status Physical Examination Vital Signs Pulse Resp BP Pulse Ox 33 L 15 110/45 99 03/16/21 16:13 03/16/21 16:13 03/16/21 16:13 03/16/21 16:13 General appearance: other (Altered mental status) HEENT: Positive: Mucus Membranes Dry Neck: Positive: trachea midline Cardiac: Positive: Regular Rhythm, Bradycardia Lungs: Positive: Wheezes Neuro: Positive: Other (Altered mental) Abdomen: Positive: Soft Skin: Positive: Cool Extremities: Present: upper extr. pulses. Absent: edema Results 03/17/21 10:11 03/17/21 10:11 Cardiac Enzymes 03/16/21 Range/Units 17:15 AST 25 (5-40) units/L Coagulation 03/16/21 Range/Units 17:15 PT 14.5 (12.2-14.9) Sec. INR 1.02 (0.87-1.13) APTT 47.7 H (24.2-36.6) Sec. Lipids 03/16/21 Range/Units 17:15 Triglycerides 40 (2-149) mg/dL Cholesterol 77 (50-199) mg/dL HDL Cholesterol 54 (40-59) mg/dL Cholesterol/HDL Ratio 1.42 % CBC 03/16/21 03/17/21 Range/Units 17:15 10:11 WBC 3.6 L 5.1 (4.5-11.0) K/mm3 RBC 2.62 L 2.26 L (3.65-5.03) M/mm3 Hgb 7.7 L 6.6 L (11.8-15.2) gm/dl Hct 23.9 L 20.4 L (35.5-45.6) % Plt Count 71 L 68 L (140-440) K/mm3 Lymph # (Auto) 0.3 L 0.3 L (1.2-5.4) K/mm3 Cecil # (Auto) 0.2 0.2 (0.0-0.8) K/mm3 Eos # (Auto) 0.1 0.1 (0.0-0.4) K/mm3 Baso # (Auto) 0.0 0.0 (0.0-0.1) K/mm3 Comprehensive Metabolic Panel 03/16/21 03/17/21 Range/Units 17:15 10:11 Sodium 141 145 (137-145) mmol/L Potassium 3.5 L 3.7 (3.6-5.0) mmol/L Chloride 106.1 110.2 H (98-107) mmol/L Carbon Dioxide 23 21 L (22-30) mmol/L BUN 31 H 34 H (9-20) mg/dL Creatinine 4.1 H 4.1 H (0.8-1.3) mg/dL Glucose 143 H 61 L (75-100) mg/dL Calcium 8.8 8.5 (8.4-10.2) mg/dL AST 25 (5-40) units/L ALT 29 (7-56) units/L Alkaline Phosphatase 133 H (35-129) units/L Total Protein 5.8 L (6.3-8.2) g/dL Albumin 2.5 L (3.9-5) g/dL - Imaging and Cardiology Echo: report reviewed Assessment and Plan Patient is a 85-year-old male with a past medical history of end-stage renal disease on hemodialysis, hypertension, history of CVA, vascular dementia, cerebral atherosclerosis, and legally blind who was brought to the ED due to bradycardia during hemodialysis session AMS PNA Bradycardia Hypotension ESRD on HD-nephrology Anemia H/O CVA Vascular dementia Echo 02/17/2021-EF 55 to 60%, moderate LVH, left ventricular diastolic function is normal, right ventricle systolic function is normal. Left and right atrium are normal in size. Plan: No EKG in chart EKG pending Patient currently on pacing pads however patient currently not being paced. Patient currently sinus heart rate trending in the 50s. No acute indication for pacemaker Due to hypotension and bradycardia will initiate dopamine drip No beta-blockers due to bradycardia No anticoagulation or antiplatelets due to anemia No NADIA/ARB due to hypotension and elevated creatinine. Will defer to nephrology for initiation of NADIA or ARB Patient seen in conjunction with Dr. Alonzo who agrees with this plan of care 30 minutes of critical care time spent on coordination of care for - Patient Problems (1) Bradycardia Current Visit: Yes Status: Acute (2) End stage renal disease Current Visit: Yes Status: Acute (3) Hypothermia Current Visit: Yes Status: Acute (4) Junctional rhythm Current Visit: Yes Status: Acute (5) Obesity hypoventilation syndrome Current Visit: Yes Status: Acute (6) Pneumonia Current Visit: Yes Status: Acute (7) Anemia Current Visit: No Status: Acute (8) Metabolic encephalopathy Current Visit: No Status: Acute
[2021-03-17] MEDS: DOPamine 800 MG in DEXTROSE 5% IN WATER 230 ML IV SCH (14:30)
[2021-03-17] MEDS ORDERED: DEXTROSE 50% IN WATER (25GM) 50 ML SYRINGE IV ONE ×2 (15:32→22:34)
[2021-03-17] MEDS ORDERED: DEXTROSE 50% IN WATER (25GM) 50 ML VIAL IV ONE (16:00)
[2021-03-17] MEDS: LATANOPROST 0.005% OPHTH SOLN 2.5 ML OD SCH (20:50)
[2021-03-17] MEDS: cefTRIAXone/NS 2 GM/100 ML 2 GM/100 ML BAG IV SCH (21:34)
[2021-03-18] MEDS ORDERED: DEXTROSE 50% IN WATER (25GM) 50 ML SYRINGE IV ONE ×2 (00:35→01:49)
[2021-03-18] MEDS: LATANOPROST 0.005% OPHTH SOLN 2.5 ML OD SCH ×2 (00:52→22:20)
--- NOTE | 2021-03-18 01:21 | XRay Report ---
CHEST 1 VIEW 03/18/2021 12:02 AM INDICATION / CLINICAL INFORMATION: Rales. COMPARISON: 03/16/21 FINDINGS: SUPPORT DEVICES: Right Port-A-Cath is unchanged. HEART / MEDIASTINUM: Stable. LUNGS / PLEURA: Bilateral pulmonary opacities are unchanged. No significant pleural effusion. No pneu mothorax. ADDITIONAL FINDINGS: No significant additional findings. IMPRESSION: 1. No significant change. Signer Name: Azam Gonzalez MD Signed: 03/18/2021 1:16 AM Workstation Name: [id number]
[2021-03-18] MEDS ORDERED: D10W 250 ML IV SOLN IV SCH (02:00)
[2021-03-18] MEDS: DEXTROSE 10% IN WATER 1,000 ML IV SCH ×3 (02:20→21:43)
[2021-03-18 05:32] LABS: Hematocrit 23.2 % (35.5-45.6); Hemoglobin 7.4 gm/dl (11.8-15.2); Mean Corpuscular HGB Conc 32 % (32-34); Mean Corpuscular Volume 90 fl (84-94); Red Blood Count 2.57 M/mm3 (3.65-5.03)
[2021-03-18 05:39] LABS: Platelet Count 77 K/mm3 (140-440); Red Cell Distribution Width 20.8 % (13.2-15.2)
[2021-03-18 05:52] LABS: Calcium 8.4 mg/dL (8.4-10.2)
[2021-03-18] MEDS ORDERED: DEXTROSE 50% IN WATER (25GM) 50 ML VIAL IV ONE ×2 (06:00→20:16)
--- NOTE | 2021-03-18 07:49 | Progress Note ---
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 Patient has diminished cognition and is unable to provide detailed history. Patient history provided as per ED staff, EMS staff, as well as personal half-way staff. As per personal half-way staff the patient was sent to dialysis today. Patient was found to have a heart rate in the 30s while undergoing dialysis. In his usual state of health prior to his dialysis. Patient returned from dialysis and was found to be confused and "not acting like himself". Patient experienced worsening symptoms over the ensuing timeframe. EMS was notified and upon arrival the patient was found to be in distress and subsequently transported to [facility] for further care and evaluation of the aforementioned symptoms. The patient was seen and evaluated in the emergency department. All lab and imaging studies reviewed. Patient found to have a systolic blood pressure in the 90s as well as clinical symptoms consistent with sick sinus syndrome. Patient with chest x-ray and was found to have evidence of pneumonia, metabolic encephalopathy, end-stage renal disease. Patient admitted to telemetry floor and initiated on pneumonia protocol. Nephrology team consulted in ED. Cardiology team consulted in ED. Patient is confused at time of my evaluation but has a positive gag reflex and is able to protect his airway. Per admission on 02/17/2021 reviewed. All medication listed at time of admission has been reconciled. Advanced care planning conducted in ED. Bennie Anderson Brother: [phone] Yvonne Anderson Daughter : [phone] Hospital Course: 03/18/2021: Respiratory distress this a.m. requiring intubation. Patient was obtunded this morning per RN report consistent with my exam findings today. I have a high suspicion for adrenal insufficiency. Cardiology following currently for symptomatic bradycardia pulse rate currently 70s. Per cardiology note, no indication for pacemaker at this time, they are okay with weaning dopamine gtt. Patient currently initiated on Levophed gtt, hydrocortisone, vanco/cefepime IV. Will continue to support with IVF, monitor UOP however suspect that this patient is anuric. Discussed patient case with care home caregiver and patient brother. Patient brother states that there is no spouse however patient has multiple children. Patient brother states that there is a daughter who is local to [place]. Her number was provided. Case management consulted for discharge planning Assessment and Plan: #Acute hypoxic respiratory failure -Hypoxic, not protecting airway on 03/18 encounter Intubated 03/18 Mechanical ventilator management per critical care Sedation with fentanyl, avoid propofol and Precedex due to bradycardia Daily SAT/SBT trials -ABG/CXR every 48 hour Discussed case with supervisor net making Dr. Arrieta #Septic shock -Hypotensive, hypothermic on admission, leukopenic - Bcx, Scx, Ucx -LA ordered Initiate Levophed drip, maintain MAP greater than 65 Antibiotic therapy with vancomycin IV, cefepime IV #Pneumonia - CXR - vancomycin/Cefepime - SCx #Symptomatic bradycardia - EK, junctional rhythm apparent. Was not pacing. - ECHO 1-2 mo ago: normal study 55-60%. - Rate in 30's per reports, was in 50's on my encounter - cardiology consulted, no indication for ppm, doubt , has initiated on dopamine gtt, wean as tolerated. #Adrenal insufficiency -Cortisol level was sent as was TSH = 3.8. -Hypotensive, hypothermic, hypoglycemic, hypokalemic on admission Hydrocortisone 100 mg iv q8hr initiated #ESRD requiring hemodialysis -Creatinine 4.8 -Avoid nephrotoxins, renally adjust meds -Judicious fluid utilization as patient appears to be anuric -Nephrology consulted on admission #Obesity hypoventilation syndrome #Advance care planning Disease education conducted, care plan discussed, diagnoses discussed, prognosis discussed, patient is full code, patient acknowledges understanding and agree with care plan, +30 minutes. The high probability of a clinically significant, sudden or life threatening deterioration of the [multi] system(s) required my full and direct attention, intervention and personal management. The aggregate critical care time was [120] minutes. This time is in addition to time spent performing reported procedures but includes the following: [x] Data Review and interpretation [x] Patient assessment and monitoring of vital signs [x] Documentation [x] Medication orders and management History Interval history: Paged regarding this patient and worsening respiratory distress. Patient has been obtunded all morning. Sats were in 60s when I arrived to the room. Bag mask ventilation was initiated by care staff. Decision made to intubate patient which was completed successfully. Discussed case with critical care. Hospitalist Physical - Physical exam Narrative exam: Physical Exam: VITAL SIGNS: Reviewed. GENERAL: The patient appears normally developed, Vital signs as documented. intubated and sedated. respiratory distress prior to HEAD: No signs of head trauma. EYES: Pupils are equal. Extraocular motions intact. EARS: Hearing grossly intact. MOUTH: Oropharynx is normal. NECK: No adenopathy, no JVD. CHEST: Chest with clear breath sounds bilaterally. No wheezes, rales, or rhonchi. CARDIAC: Regular rate and rhythm. S1 and S2, without murmurs, gallops, or rubs. VASCULAR: No Edema. Peripheral pulses normal and equal in all extremities. ABDOMEN: Soft, non tender and non distended. No rebound or guarding, and no masses palpated. Bowel Sounds normal. MUSCULOSKELETAL: Good range of motion of all major joints. Extremities without clubbing, cyanosis or edema. NEUROLOGIC EXAM: sedated PSYCHIATRIC: sedated SKIN: detail exam as documented in skin assessment - Constitutional Vitals: Temp Pulse Resp BP Pulse Ox 95.4 F L 54 L 21 99/35 100 03/18/21 06:45 03/18/21 07:00 03/18/21 07:00 03/18/21 07:00 03/18/21 07:00 General appearance: Present: other (Altered mental status) HEART Score - HEART Score Troponin: Troponin T 0.047 ng/mL (0.00-0.029) H 03/16/21 17:15 Results - Labs CBC & Chem 7: 03/18/21 05:00 03/18/21 05:00 Labs: Laboratory Last Values WBC 8.0 K/mm3 (4.5-11.0) 03/18/21 05:00 RBC 2.57 M/mm3 (3.65-5.03) L 03/18/21 05:00 Hgb 7.4 gm/dl (11.8-15.2) L 03/18/21 05:00 Hct 23.2 % (35.5-45.6) L 03/18/21 05:00 MCV 90 fl (84-94) 03/18/21 05:00 MCH 29 pg (28-32) 03/18/21 05:00 MCHC 32 % (32-34) 03/18/21 05:00 RDW 20.8 % (13.2-15.2) H 03/18/21 05:00 Plt Count 77 K/mm3 (140-440) L 03/18/21 05:00 Lymph % (Auto) 6.5 % (13.4-35.0) L 03/17/21 10:11 [place] % (Auto) 3.9 % (0.0-7.3) 03/17/21 10:11 Eos % (Auto) 1.9 % (0.0-4.3) 03/17/21 10:11 Baso % (Auto) 0.7 % (0.0-1.8) 03/17/21 10:11 Lymph # (Auto) 0.3 K/mm3 (1.2-5.4) L 03/17/21 10:11 [place] # (Auto) 0.2 K/mm3 (0.0-0.8) 03/17/21 10:11 Eos # (Auto) 0.1 K/mm3 (0.0-0.4) 03/17/21 10:11 Baso # (Auto) 0.0 K/mm3 (0.0-0.1) 03/17/21 10:11 Seg Neutrophils % 87.0 % (40.0-70.0) H 03/17/21 10:11 Seg Neutrophils # 4.4 K/mm3 (1.8-7.7) 03/17/21 10:11 PT 14.5 Sec. (12.2-14.9) 03/16/21 17:15 INR 1.02 (0.87-1.13) 03/16/21 17:15 APTT 47.7 Sec. (24.2-36.6) H 03/16/21 17:15 Sodium 143 mmol/L (137-145) 03/18/21 05:00 Potassium 4.1 mmol/L (3.6-5.0) 03/18/21 05:00 Chloride 107.8 mmol/L (98-107) H 03/18/21 05:00 Carbon Dioxide 23 mmol/L (22-30) 03/18/21 05:00 Anion Gap 16 mmol/L 03/18/21 05:00 BUN 40 mg/dL (9-20) H 03/18/21 05:00 Creatinine 4.8 mg/dL (0.8-1.3) H 03/18/21 05:00 Estimated GFR 14 ml/min 03/18/21 05:00 BUN/Creatinine Ratio 8 % 03/18/21 05:00 Glucose 44 mg/dL (75-100) L 03/18/21 05:00 POC Glucose 60 mg/dL (70-105) L 03/18/21 07:06 Calcium 8.4 mg/dL (8.4-10.2) 03/18/21 05:00 Total Bilirubin < 0.20 mg/dL (0.1-1.2) 03/16/21 17:15 AST 25 units/L (5-40) 03/16/21 17:15 ALT 29 units/L (7-56) 03/16/21 17:15 Alkaline Phosphatase 133 units/L (35-129) H 03/16/21 17:15 Troponin T 0.047 ng/mL (0.00-0.029) H 03/16/21 17:15 Total Protein 5.8 g/dL (6.3-8.2) L 03/16/21 17:15 Albumin 2.5 g/dL (3.9-5) L 03/16/21 17:15 Albumin/Globulin Ratio 0.8 % 03/16/21 17:15 Triglycerides 40 mg/dL (2-149) 03/16/21 17:15 Cholesterol 77 mg/dL (50-199) 03/16/21 17:15 LDL Cholesterol Direct 17 mg/dL (50-130) L 03/16/21 17:15 HDL Cholesterol 54 mg/dL (40-59) 03/16/21 17:15 Cholesterol/HDL Ratio 1.42 % 03/16/21 17:15 TSH 3.850 mlU/mL (0.270-4.200) 03/16/21 18:14 Active Medications - Current Medications Current Medications: Generic Name Dose Route Start Last Admin Trade Name Freq PRN Reason Stop Dose Admin Acetaminophen 650 mg 03/16/21 18:54 Acetaminophen 325 Mg Tab PO Q4H PRN Pain MILD(1-3)/Fever >100.5/LOCKE Albuterol 2.5 mg 03/16/21 18:54 Albuterol 2.5 Mg/3 Ml Nebu IH Q4HRT PRN Shortness Of Breath Atorvastatin Calcium 20 mg 03/16/21 22:00 03/17/21 22:41 Atorvastatin 20 Mg Tab PO Not Given QHS [facility] Docusate Sodium 100 mg 03/17/21 10:00 03/17/21 11:30 Docusate Sodium 100 Mg Cap PO Not Given QDAY [facility]ST[facility]A Famotidine 10 mg 03/17/21 10:00 03/17/21 22:48 Famotidine 10 Mg Tab PO Not Given BID [facility]STELA Hydromorphone HCl 0.5 mg 03/16/21 18:54 Hydromorphone 1 Mg/1 Ml Inj IV Q23H PRN Pain , Severe (7-10) Hydroxyzine HCl 25 mg 03/16/21 18:57 Hydroxyzine Hcl 25 Mg Tab PO Q6HR PRN Itching Ceftriaxone Sodium 2 gm in 100 mls @ 200 mls/hr 03/16/21 19:00 03/17/21 21:34 Rocephin/Ns 2 Gm/100 Ml IV 200 mls/hr Q24H [facility] Administration Protocol Azithromycin 500 mg in 250 mls @ 250 mls/hr 03/16/21 19:00 03/17/21 22:00 Zithromax/Ns IV 250 mls/hr Q24H [facility] Administration Protocol Dopamine HCl 800 mg/ Dextrose 250 mls @ 3.113 mls/hr 03/17/21 14:00 03/17/21 19:30 IV 10 mcg/kg/min TITR CRISTELA 15.563 mls/hr Titration Protocol 2 MCG/KG/MIN Dextrose 1,000 mls @ 75 mls/hr 03/18/21 02:00 03/18/21 06:04 D10w IV 100 mls/hr DIRECT CRISTELA Infusion Latanoprost 1 drops 03/16/21 22:00 03/18/21 00:52 Latanoprost 0.005% Ophth Soln 2.5 Ml OD 1 drops QHS [facility] Administration Lorazepam 1 mg 03/16/21 18:57 Lorazepam 1 Mg Tab PO Q6H PRN Anxiety Miscellaneous Medication 1 drop 03/16/21 22:00 03/17/21 22:41 Dorzolamide Hcl/Timolol Maleat [Dorzolamide-Timolol Eye Drops] OD Not Given BID [facility]STELA Olanzapine 5 mg 03/17/21 10:00 03/17/21 11:31 Olanzapine 5 Mg Tab PO Not Given QDAY [facility] Ondansetron HCl 4 mg 03/16/21 18:54 Ondansetron 4 Mg/2 Ml Inj IV Q8H PRN Nausea And Vomiting Oxycodone/Acetaminophen 1 tab 03/16/21 18:54 Oxycodone /Acetaminophen 5-325mg Tab PO Q16H PRN Pain, Moderate (4-6) Phenyleph/Shark Oil/Min Oil/Petrol 1 applic 03/17/21 10:00 03/17/21 11:30 Pe/Mo/Pet,Wh 10 Applic/28 Gm Tube [place] 1 applic QDAY [facility] Administration Sevelamer Carbonate 1,600 mg 03/16/21 20:00 03/17/21 21:25 Sevelamer Carbonate 800 Mg Tab PO Not Given TID [facility]ST[facility]A Sodium Chloride 10 ml 03/16/21 22:00 03/17/21 22:42 Sodium Chloride 0.9% 10 Ml Flush Syringe IV 10 ml BID [facility]A Administration Sodium Chloride 10 ml 03/16/21 18:54 Sodium Chloride 0.9% 10 Ml Flush Syringe IV PRN PRN LINE FLUSH Zinc Acetate/Diphenhydramine 1 applic 03/16/21 18:57 Diphenhydramine/Zinc Acet 2% Cream 28.4 Gm TP Q8H PRN Itching
--- NOTE | 2021-03-18 08:21 | Progress Note ---
Assessment and Plan Assessment and Plan - Patient Problems (1) Pneumonia Current Visit: Yes Status: Acute Plan to address problem: Pneumonia protocol: Chest x-ray, CBC, CMP, supplemental oxygen, pulse oximetry, nebulizer therapy, IV antibiotic therapy, pulmonary toilet. Rule out COVID (2) End stage renal disease Current Visit: Yes Status: Acute Plan to address problem: Nephrology team consulted in ED, dialysis as per renal team, monitor fluid balance, blood pressure control. (3) Sick sinus syndrome Current Visit: Yes Status: Acute Plan to address problem: Cardiology team consulted. Telemetry monitoring, further care and evaluation as per cardiology team. 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 Patient has diminished cognition and is unable to provide detailed history. Patient history provided as per ED staff, EMS staff, as well as personal detention staff. As per personal detention staff the patient was sent to dialysis today. Patient was found to have a heart rate in the 30s while undergoing dialysis. In his usual state of health prior to his dialysis. Patient returned from dialysis and was found to be confused and "not acting like himself". Patient experienced worsening symptoms over the ensuing timeframe. EMS was notified and upon arrival the patient was found to be in distress and subsequently transported to [facility] for further care and evaluation of the aforementioned symptoms. The patient was seen and evaluated in the emergency department. All lab and imaging studies reviewed. Patient found to have a systolic blood pressure in the 90s as well as clinical symptoms consistent with sick sinus syndrome. Patient with chest x-ray and was found to have evidence of pneumonia, metabolic encephalopathy, end-stage renal disease. Patient admitted to telemetry floor and initiated on pneumonia protocol. Nephrology team consulted in ED. Cardiology team consulted in ED. Patient is confused at time of my evaluation but has a positive gag reflex and is able to protect his airway. Per admission on 02/17/2021 reviewed. All medication listed at time of admission has been reconciled. Advanced care planning conducted in ED. 03/17/2021 Patient on 5 L nasal cannula oxygen COVID test pending Echocardiogram pending Objective - Constitutional Vitals: Vital Signs - 12hr 03/17/21 03/17/21 03/17/21 20:30 21:00 21:30 Temperature Pulse Rate 53 L 54 L 55 L Respiratory 18 19 18 Rate Blood Pressure 114/42 124/43 120/43 O2 Sat by Pulse 100 100 100 Oximetry 03/17/21 03/17/21 03/17/21 22:00 22:30 23:00 Temperature Pulse Rate 57 L 57 L 58 L Respiratory 16 22 18 Rate Blood Pressure 126/42 114/41 121/45 O2 Sat by Pulse 100 100 100 Oximetry 03/17/21 03/17/21 03/18/21 23:28 23:30 00:00 Temperature Pulse Rate 56 L 56 L 57 L Respiratory 19 20 20 Rate Blood Pressure 112/46 112/46 95/44 O2 Sat by Pulse 100 100 100 Oximetry 03/18/21 03/18/21 03/18/21 00:30 01:00 01:30 Temperature 97.7 F Pulse Rate 61 57 L 56 L Respiratory 22 22 18 Rate Blood Pressure 115/43 121/41 125/41 O2 Sat by Pulse 100 98 100 Oximetry 03/18/21 03/18/21 03/18/21 02:00 02:30 03:00 Temperature Pulse Rate 56 L 58 L 57 L Respiratory 18 18 20 Rate Blood Pressure 127/39 142/49 133/46 O2 Sat by Pulse 100 100 100 Oximetry 03/18/21 03/18/21 03/18/21 03:30 04:00 04:30 Temperature Pulse Rate 59 L 57 L 57 L Respiratory 18 15 19 Rate Blood Pressure 111/30 103/25 105/30 O2 Sat by Pulse 97 90 100 Oximetry 03/18/21 03/18/21 03/18/21 05:00 05:30 06:00 Temperature Pulse Rate 55 L 58 L 58 L Respiratory 19 21 22 Rate Blood Pressure 88/36 100/34 117/34 O2 Sat by Pulse 98 100 99 Oximetry 03/18/21 03/18/21 03/18/21 06:30 06:45 07:00 Temperature 95.4 F L Pulse Rate 61 54 L Respiratory 21 21 Rate Blood Pressure 115/32 99/35 O2 Sat by Pulse 99 100 Oximetry General appearance: Present: mild distress, well-nourished - EENT Eyes: PERRL, EOM intact ENT: hearing intact, clear oral mucosa Ears: bilateral: normal - Neck Neck: supple, normal ROM - Respiratory Respiratory effort: normal Respiratory: bilateral: CTA, rales, rhonchi - Breasts Breasts: normal - Cardiovascular Heart rate: 78 Rhythm: regular Heart Sounds: Present: S1 & S2. Absent: gallop, rub Extremities: pulses intact, No edema, normal color, Full ROM - Gastrointestinal General gastrointestinal: Present: soft, non-tender, non-distended, normal bowel sounds - Genitourinary Male genitourinary: normal - Integumentary Integumentary: clear, warm, dry - Musculoskeletal Musculoskeletal: 1, strength equal bilaterally - Neurologic Neurologic: moves all extremities - Psychiatric Psychiatric: memory intact, appropriate mood/affect, intact judgment & insight - Allied health notes Allied health notes reviewed: nursing, case management - Labs CBC & Chem 7: 03/18/21 05:00 03/18/21 05:00 Labs: Abnormal lab results 03/17/21 03/17/21 03/17/21 Range/Units 10:11 10:11 15:16 RBC 2.26 L (3.65-5.03) M/mm3 Hgb 6.6 L (11.8-15.2) gm/dl Hct 20.4 L (35.5-45.6) % RDW 21.2 H (13.2-15.2) % Plt Count 68 L (140-440) K/mm3 Lymph % (Auto) 6.5 L (13.4-35.0) % Lymph # (Auto) 0.3 L (1.2-5.4) K/mm3 Seg Neutrophils % 87.0 H (40.0-70.0) % Chloride 110.2 H (98-107) mmol/L Carbon Dioxide 21 L (22-30) mmol/L BUN 34 H (9-20) mg/dL Creatinine 4.1 H (0.8-1.3) mg/dL Glucose 61 L (75-100) mg/dL POC Glucose 69 L (70-105) mg/dL 03/17/21 03/17/21 03/17/21 Range/Units 16:16 17:18 22:28 RBC (3.65-5.03) M/mm3 Hgb (11.8-15.2) gm/dl Hct (35.5-45.6) % RDW (13.2-15.2) % Plt Count (140-440) K/mm3 Lymph % (Auto) (13.4-35.0) % Lymph # (Auto) (1.2-5.4) K/mm3 Seg Neutrophils % (40.0-70.0) % Chloride (98-107) mmol/L Carbon Dioxide (22-30) mmol/L BUN (9-20) mg/dL Creatinine (0.8-1.3) mg/dL Glucose (75-100) mg/dL POC Glucose 59 L 60 L 32 L (70-105) mg/dL 03/18/21 03/18/21 03/18/21 Range/Units 00:32 01:46 03:14 RBC (3.65-5.03) M/mm3 Hgb (11.8-15.2) gm/dl Hct (35.5-45.6) % RDW (13.2-15.2) % Plt Count (140-440) K/mm3 Lymph % (Auto) (13.4-35.0) % Lymph # (Auto) (1.2-5.4) K/mm3 Seg Neutrophils % (40.0-70.0) % Chloride (98-107) mmol/L Carbon Dioxide (22-30) mmol/L BUN (9-20) mg/dL Creatinine (0.8-1.3) mg/dL Glucose (75-100) mg/dL POC Glucose 12 L 53 L 38 L (70-105) mg/dL 03/18/21 03/18/21 03/18/21 Range/Units 05:00 05:00 07:06 RBC 2.57 L (3.65-5.03) M/mm3 Hgb 7.4 L (11.8-15.2) gm/dl Hct 23.2 L (35.5-45.6) % RDW 20.8 H (13.2-15.2) % Plt Count 77 L (140-440) K/mm3 Lymph % (Auto) (13.4-35.0) % Lymph # (Auto) (1.2-5.4) K/mm3 Seg Neutrophils % (40.0-70.0) % Chloride 107.8 H (98-107) mmol/L Carbon Dioxide (22-30) mmol/L BUN 40 H (9-20) mg/dL Creatinine 4.8 H (0.8-1.3) mg/dL Glucose 44 L (75-100) mg/dL POC Glucose 60 L (70-105) mg/dL 03/18/21 Range/Units 08:01 RBC (3.65-5.03) M/mm3 Hgb (11.8-15.2) gm/dl Hct (35.5-45.6) % RDW (13.2-15.2) % Plt Count (140-440) K/mm3 Lymph % (Auto) (13.4-35.0) % Lymph # (Auto) (1.2-5.4) K/mm3 Seg Neutrophils % (40.0-70.0) % Chloride (98-107) mmol/L Carbon Dioxide (22-30) mmol/L BUN (9-20) mg/dL Creatinine (0.8-1.3) mg/dL Glucose (75-100) mg/dL POC Glucose 65 L (70-105) mg/dL Chest x-ray patchy bibasilar airspace opacities likely reflect edema in the setting of CHF/volume overload. Unable to exclude superimposed pneumonia HEART Score - HEART Score Troponin: Troponin T 0.047 ng/mL (0.00-0.029) H 03/16/21 17:15
[2021-03-18] MEDS: DOPamine 800 MG in DEXTROSE 5% IN WATER 230 ML IV SCH (09:00)
--- NOTE | 2021-03-18 10:00 | Progress Note ---
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 Will plan for HD tomorrow * Patient remains on dopamine - HR in 50-60s. MAP low 60s * Cardiology following * D10W infusing * Transfuse pRBC - Hb <7 * Dose medications for renal function * Avoid potential nephrotoxins Subjective Date of service: 03/18/21 Principal diagnosis: Bilateral pneumonia, CHF exacerbation Interval history: Patient hypoglycemic - now on D10 gtt. HR 50-60s. MAP 50-60s Objective - Vital Signs Vital signs: Vital Signs - 12hr 03/17/21 03/17/21 03/17/21 22:00 22:30 23:00 Temperature Pulse Rate 57 L 57 L 58 L Respiratory 16 22 18 Rate Blood Pressure 126/42 114/41 121/45 O2 Sat by Pulse 100 100 100 Oximetry 03/17/21 03/17/21 03/18/21 23:28 23:30 00:00 Temperature Pulse Rate 56 L 56 L 57 L Respiratory 19 20 20 Rate Blood Pressure 112/46 112/46 95/44 O2 Sat by Pulse 100 100 100 Oximetry 03/18/21 03/18/21 03/18/21 00:30 01:00 01:30 Temperature 97.7 F Pulse Rate 61 57 L 56 L Respiratory 22 22 18 Rate Blood Pressure 115/43 121/41 125/41 O2 Sat by Pulse 100 98 100 Oximetry 03/18/21 03/18/21 03/18/21 02:00 02:30 03:00 Temperature Pulse Rate 56 L 58 L 57 L Respiratory 18 18 20 Rate Blood Pressure 127/39 142/49 133/46 O2 Sat by Pulse 100 100 100 Oximetry 03/18/21 03/18/21 03/18/21 03:30 04:00 04:30 Temperature Pulse Rate 59 L 57 L 57 L Respiratory 18 15 19 Rate Blood Pressure 111/30 103/25 105/30 O2 Sat by Pulse 97 90 100 Oximetry 03/18/21 03/18/21 03/18/21 05:00 05:30 06:00 Temperature Pulse Rate 55 L 58 L 58 L Respiratory 19 21 22 Rate Blood Pressure 88/36 100/34 117/34 O2 Sat by Pulse 98 100 99 Oximetry 03/18/21 03/18/21 03/18/21 06:30 06:45 07:00 Temperature 95.4 F L Pulse Rate 61 54 L Respiratory 21 21 Rate Blood Pressure 115/32 99/35 O2 Sat by Pulse 99 100 Oximetry 03/18/21 03/18/21 03/18/21 07:30 08:00 08:24 Temperature 96 F L Pulse Rate 59 L 60 Respiratory 22 24 Rate Blood Pressure 101/31 106/32 O2 Sat by Pulse 100 100 Oximetry 03/18/21 03/18/21 08:30 09:00 Temperature Pulse Rate 60 59 L Respiratory 20 20 Rate Blood Pressure 107/33 113/36 O2 Sat by Pulse 98 100 Oximetry - General Appearance General appearance: well-developed, well-nourished Cardiology: bradycardia Gastrointestinal: normal Integumentary: rash - Lab 03/18/21 05:00 03/18/21 05:00 Most recent lab results Calcium 8.4 mg/dL (8.4-10.2) 03/18/21 05:00 Medications & Allergies - Medications Allergies/Adverse Reactions: Allergies No Known Allergies Allergy (Verified 12/11/20 16:04) Home Medications: Home Medications Medication Instructions Recorded Confirmed Last Taken Type AtorvaSTATin [Lipitor] 20 mg PO QHS 01/21/21 02/17/21 01/19/21 21:00 History Lispro Insulin [HumaLOG] 0 unit SUB-Q ACHS units 02/01/21 02/17/21 Unknown Rx Sodium Chloride 0.9% Int [Sodium 10 ml IV BID syringe 02/01/21 02/17/21 Unknown Rx Chloride Flush Syringe 10 ml] diphenhydrAMINE/ZINC 2% [Banophen 1 applic TP Q8H PRN tube 02/01/21 02/17/21 Unknown Rx Anti-Itch] hydrOXYzine PAMOATE [Vistaril] 25 mg PO Q6H PRN capsule 02/01/21 02/17/21 Unknown Rx Acetaminophen [Acetaminophen TAB] 500 mg PO Q6HR 02/17/21 02/17/21 Unknown History Brimonidine 0.15% [Alphagan P 1 drops OD BID 02/17/21 02/17/21 Unknown History 0.15%] Cholecalciferol (Vitamin D3) 50,000 unit PO 2XW 02/17/21 02/17/21 Unknown Histo ry [Vitamin D3 50,000UNIT CAP] Colloidal Oatmeal [Eucerin Eczema 226 gm TP Q4H 02/17/21 02/17/21 Unknown History Relief] Docusate Sodium [Dok] 100 mg PO QDAY 02/17/21 02/17/21 Unknown History Dorzolamide HCl/Timolol Maleat 1 drop OD BID 02/17/21 02/17/21 Unknown History [Dorzolamide-Timolol Eye Drops] Famotidine [Pepcid] 20 mg PO BID 02/17/21 02/17/21 Unknown History Hydrocortisone/Aloe Vera 0 gm TP TID 02/17/21 02/17/21 Unknown History [Hydrocortisone-Aloe 0.5% Cream] Insulin Glargine,Hum.rec.anlog 9 units SQ QHS 02/17/21 02/17/21 Unknown History [Lantus Solostar] LORazepam [Ativan] 1 mg PO Q6H PRN 02/17/21 02/17/21 Unknown History Latanoprost 0.005% 1 drop OD QHS 02/17/21 02/17/21 Unknown History Metoprolol Xl [Metoprolol 25 mg PO BID 02/17/21 02/17/21 Unknown History SUCCINATE ER TAB] OLANZapine [Zyprexa] 5 mg PO QDAY 02/17/21 02/17/21 Unknown History Phenyleph/Mineral Oil/Petrolat 28 gm RC QDAY 02/17/21 02/17/21 Unknown History [Preparation H Ointment] Sevelamer Carbonate [Renvela] 1,600 mg PO TID 02/17/21 02/17/21 Unknown History diphenhydrAMINE [Benadryl CAP] 25 mg PO 3XW 02/17/21 02/17/21 Unknown History diphenhydrAMINE [Benadryl CAP] 25 mg PO Q6HR PRN 02/17/21 02/17/21 Unknown History hydrOXYzine HCL [Atarax] 25 mg PO Q6HR PRN 02/17/21 02/17/21 Unknown History lisinopriL [Lisinopril] 20 mg PO QDAY 02/17/21 02/17/21 Unknown History Active Medications: Generic Name Dose Route Start Last Admin Trade Name Freq PRN Reason Stop Dose Admin Acetaminophen 650 mg 03/16/21 18:54 Acetaminophen 325 Mg Tab PO Q4H PRN Pain MILD(1-3)/Fever >100.5/LOCKE Albuterol 2.5 mg 03/16/21 18:54 Albuterol 2.5 Mg/3 Ml Nebu IH Q4HRT PRN Shortness Of Breath Atorvastatin Calcium 20 mg 03/16/21 22:00 03/17/21 22:41 Atorvastatin 20 Mg Tab PO Not Given QHS CRISTELA Docusate Sodium 100 mg 03/17/21 10:00 03/17/21 11:30 Docusate Sodium 100 Mg Cap PO Not Given QDAY CRISTELA Famotidine 10 mg 03/17/21 10:00 03/17/21 22:48 Famotidine 10 Mg Tab PO Not Given BID CRISTELA Hydromorphone HCl 0.5 mg 03/16/21 18:54 Hydromorphone 1 Mg/1 Ml Inj IV Q23H PRN Pain , Severe (7-10) Hydroxyzine HCl 25 mg 03/16/21 18:57 Hydroxyzine Hcl 25 Mg Tab PO Q6HR PRN Itching Ceftriaxone Sodium 2 gm in 100 mls @ 200 mls/hr 03/16/21 19:00 03/17/21 21:34 Rocephin/Ns 2 Gm/100 Ml IV 200 mls/hr Q24H CRISTELA Administration Protocol Azithromycin 500 mg in 250 mls @ 250 mls/hr 03/16/21 19:00 03/17/21 22:00 Zithromax/Ns IV 250 mls/hr Q24H CRISTELA Administration Protocol Dopamine HCl 800 mg/ Dextrose 250 mls @ 3.113 mls/hr 03/17/21 14:00 03/17/21 19:30 IV 10 mcg/kg/min TITR CRISTELA 15.563 mls/hr Titration Protocol 2 MCG/KG/MIN Dextrose 1,000 mls @ 75 mls/hr 03/18/21 02:00 03/18/21 06:04 D10w IV 100 mls/hr DIRECT CRISTELA Infusion Latanoprost 1 drops 03/16/21 22:00 03/18/21 00:52 Latanoprost 0.005% Ophth Soln 2.5 Ml OD 1 drops QHS CRISTELA Administration Lorazepam 1 mg 03/16/21 18:57 Lorazepam 1 Mg Tab PO Q6H PRN Anxiety Miscellaneous Medication 1 drop 03/16/21 22:00 03/17/21 22:41 Dorzolamide Hcl/Timolol Maleat [Dorzolamide-Timolol Eye Drops] OD Not Given BID CRISTELA Olanzapine 5 mg 03/17/21 10:00 03/17/21 11:31 Olanzapine 5 Mg Tab PO Not Given QDAY CRISTELA Ondansetron HCl 4 mg 03/16/21 18:54 Ondansetron 4 Mg/2 Ml Inj IV Q8H PRN Nausea And Vomiting Oxycodone/Acetaminophen 1 tab 03/16/21 18:54 Oxycodone /Acetaminophen 5-325mg Tab PO Q16H PRN Pain, Moderate (4-6) Phenyleph/Shark Oil/Min Oil/Petrol 1 applic 03/17/21 10:00 03/17/21 11:30 Pe/Mo/Pet,Wh 10 Applic/28 Gm Tube PA 1 applic QDAY CRISTELA Administration Sevelamer Carbonate 1,600 mg 03/16/21 20:00 03/17/21 21:25 Sevelamer Carbonate 800 Mg Tab PO Not Given TID CRISETLA Sodium Chloride 10 ml 03/16/21 22:00 03/17/21 22:42 Sodium Chloride 0.9% 10 Ml Flush Syringe IV 10 ml BID CRISTELA Administration Sodium Chloride 10 ml 03/16/21 18:54 Sodium Chloride 0.9% 10 Ml Flush Syringe IV PRN PRN LINE FLUSH Zinc Acetate/Diphenhydramine 1 applic 03/16/21 18:57 Diphenhydramine/Zinc Acet 2% Cream 28.4 Gm TP Q8H PRN Itching
[2021-03-18] MEDS: SEVELAMER CARBONATE 800 MG TAB PO SCH ×3 (11:15→22:19)
[2021-03-18] MEDS: PE/MO/PET,WH 10 APPLIC/28 GM TUBE PR SCH (11:16)
[2021-03-18] MEDS: NON-FORMULARY EACH (Dorzolamide Hcl/Timolol Maleat [Dorzolamide-Timolol Eye Drops] 10 ML D OD SCH ×2 (11:16→22:20)
[2021-03-18] MEDS: FAMOTIDINE 10 MG TAB PO SCH ×2 (11:16→22:20)
[2021-03-18] MEDS: DOCUSATE SODIUM 100 MG CAP PO SCH (11:16)
[2021-03-18] MEDS ORDERED: ETOMIDATE 20 MG/10 ML INJ IV ONE ×2 (11:45→12:41)
[2021-03-18] MEDS ORDERED: ROCURONIUM 50 MG/5 ML INJ IV ONE ×2 (11:48→12:40)
[2021-03-18] MEDS ORDERED: SODIUM CHLORIDE 0.9% 1000 ML 1,000 ML ONE (12:29)
[2021-03-18] MEDS ORDERED: SUCCINYLCHOLINE CHLORIDE 200 MG/10 ML INJ MDV ONE (12:40)
[2021-03-18] MEDS ORDERED: fentaNYL 100 MCG/2 ML INJ IV PRN (12:54)
--- NOTE | 2021-03-18 13:24 | Post Operative Note ---
Date of procedure: 03/18/21 Pre-op diagnosis: acute hypoxic respiratory failure Post-op diagnosis: same Procedure: A time out was performed. My hands were washed immediately prior to the procedure. I wore a surgical cap, mask with protective eyewear, gown and gloves throughout the procedure. The patient was placed on a property assessment monitor including continuous pulse oximetry. Rapid Sequence Intubation was conducted. The patient received 10 mg of etomidate for induction and 50 mg of rocuronium for adequate paralysis. Cricoid pressure was maintained from time induction agent was given to time of cuff balloon inflation. Using a size 4 glide scope and a size 7.5 endotracheal tube with stylet, the patient was intubated on the 1 attempt. The stylet was removed and cuff balloon was inflated. Appropriate endotracheal tube position was confirmed by direct visualization of vocal cord passage, fogging of the tube, CO2 colormetric indicator and symmetric breath sounds. The tube was secured at 23 cm at the lips. Post intubation chest x-ray shows adequate placement of the endotracheal tube approximately 5 cm from the viktoria Surgeon: PETE DWYER Estimated blood loss: none Pathology: none Condition: critical Disposition: ICU
--- NOTE | 2021-03-18 13:31 | XRay Report ---
CHEST 1 VIEW 03/18/2021 12:22 PM INDICATION / CLINICAL INFORMATION: intubation. COMPARISON: One view of the chest from earlier today. FINDINGS: SUPPORT DEVICES: An ET tube has been placed with the tip located 5 cm above the viktoria. An esophagoga stric tube has been placed with coiling of the tip over the GE junction. Unchanged right Port-A-Cath. HEART / MEDIASTINUM: Stable. LUNGS / PLEURA: Aeration of the lungs has improved with residual bibasilar opacities. No significant pleural effusion. No pneumothorax. ADDITIONAL FINDINGS: No significant additional findings. IMPRESSION: 1. Satisfactory positioning of the ET tube. 2. Coiled NG tube as above. Slight retraction of the tube with subsequent advancement may result in p vidhya gastric positioning of the tip of the tube. A follow-up KUB after tube repositioning is recomme nded. 3. Improved aeration of the lungs. Signer Name: Sidney Martini MD Signed: 03/18/2021 1:27 PM Workstation Name: [id number]
--- NOTE | 2021-03-18 14:14 | Progress Note ---
Assessment and Plan Patient is a 85-year-old male with a past medical history of end-stage renal disease on hemodialysis, hypertension, history of CVA, vascular dementia, cerebral atherosclerosis, and legally blind who was brought to the ED due to bradycardia during hemodialysis session AMS PNA Bradycardia Hypotension ESRD on HD-nephrology Anemia H/O CVA Vascular dementia Echo 02/17/2021-EF 55 to 60%, moderate LVH, left ventricular diastolic function is normal, right ventricle systolic function is normal. Left and right atrium are normal in size. Plan: Patient currently on pacing pads however patient currently not being paced. Patient currently sinus heart rate trending in the 60s. No acute indication for pacemaker Continue dopamine drip No beta-blockers due to bradycardia No anticoagulation or antiplatelets due to anemia No NADIA/ARB due to hypotension and elevated creatinine. Will defer to nephrology for initiation of NADIA or ARB Patient seen in conjunction with Dr. Alonzo who agrees with this plan of care 30 minutes of critical care time spent on coordination of care for - Patient Problems (1) Bradycardia Current Visit: Yes Status: Acute (2) End stage renal disease Current Visit: Yes Status: Acute (3) Hypothermia Current Visit: Yes Status: Acute (4) Junctional rhythm Current Visit: Yes Status: Acute (5) Obesity hypoventilation syndrome Current Visit: Yes Status: Acute (6) Pneumonia Current Visit: Yes Status: Acute (7) Anemia Current Visit: No Status: Acute (8) Metabolic encephalopathy Current Visit: No Status: Acute Subjective Date of service: 03/18/21 Principal diagnosis: Bilateral pneumonia, CHF exacerbation Interval history: Patient resting in bed no acute distress Heart rate sinus 60s on monitor Objective Vital Signs Temp Pulse Resp BP BP Pulse Ox 03/18/21 13:18 70 100 03/18/21 09:00 59 L 20 113/36 100 03/18/21 08:30 60 20 107/33 98 03/18/21 08:24 96 F L 03/18/21 08:00 60 24 106/32 100 03/18/21 07:30 59 L 22 101/31 100 03/18/21 07:00 54 L 21 99/35 100 03/18/21 06:45 95.4 F L 03/18/21 06:30 61 21 115/32 99 03/18/21 06:00 58 L 22 117/34 99 03/18/21 05:30 58 L 21 100/34 100 03/18/21 05:00 55 L 19 88/36 98 03/18/21 04:30 57 L 19 105/30 100 03/18/21 04:00 57 L 15 103/25 90 03/18/21 03:30 59 L 18 111/30 97 03/18/21 03:00 57 L 20 133/46 100 03/18/21 02:30 58 L 18 142/49 100 03/18/21 02:00 56 L 18 127/39 100 03/18/21 01:30 56 L 18 125/41 100 03/18/21 01:00 97.7 F 57 L 22 121/41 98 03/18/21 00:30 61 22 115/43 100 03/18/21 00:00 57 L 20 95/44 100 03/17/21 23:30 56 L 20 112/46 100 03/17/21 23:28 56 L 19 112/46 100 03/17/21 23:00 58 L 18 121/45 100 03/17/21 22:30 57 L 22 114/41 100 03/17/21 22:00 57 L 16 126/42 100 03/17/21 21:30 55 L 18 120/43 100 03/17/21 21:00 54 L 19 124/43 100 03/17/21 20:30 53 L 18 114/42 100 03/17/21 20:00 54 L 20 121/39 100 03/17/21 19:30 52 L 19 120/38 100 03/17/21 19:15 94 F L 52 L 17 118/40 100 03/17/21 19:00 52 L 20 118/40 100 03/17/21 18:30 52 L 19 119/35 100 03/17/21 18:00 59 L 21 120/38 100 03/17/21 17:59 90.1 F L 03/17/21 17:30 57 L 19 100/52 100 03/17/21 17:00 55 L 20 110/38 100 03/17/21 16:30 57 L 20 113/36 100 03/17/21 16:00 56 L 26 H 103/61 100 03/17/21 15:30 52 L 22 105/36 98 03/17/21 15:00 47 L 26 H 79/35 96 01/18/22 14:30 40 L 15 81/32 89 - Physical Examination General: Other (Altered mental status) HEENT: Positive: Mucus Membranes Dry Neck: Positive: trachea midline Cardiac: Positive: Reg Rate and Rhythm Lungs: Positive: Decreased Breath Sounds Neuro: Positive: Other (Altered mental) Abdomen: Positive: Soft Skin: Positive: Cool Extremities: Present: upper extr. pulses. Absent: edema - Labs and Meds CBC 03/18/21 Range/Units 05:00 WBC 8.0 (4.5-11.0) K/mm3 RBC 2.57 L (3.65-5.03) M/mm3 Hgb 7.4 L (11.8-15.2) gm/dl Hct 23.2 L (35.5-45.6) % Plt Count 77 L (140-440) K/mm3 Comprehensive Metabolic Panel 03/18/21 Range/Units 05:00 Sodium 143 (137-145) mmol/L Potassium 4.1 (3.6-5.0) mmol/L Chloride 107.8 H (98-107) mmol/L Carbon Dioxide 23 (22-30) mmol/L BUN 40 H (9-20) mg/dL Creatinine 4.8 H (0.8-1.3) mg/dL Glucose 44 L (75-100) mg/dL Calcium 8.4 (8.4-10.2) mg/dL - Imaging and Cardiology Echo: report reviewed - Telemetry EKG Rhythm: Sinus Rhythm - EKG Sinus rhythms and dysrhythmias: sinus rhythm
[2021-03-18] MEDS: fentaNYL DRIP Premix 2,000 MCG/100 ML BAG IV SCH (14:32)
[2021-03-18 14:36] LABS: ABG Base Excess 0.6 mmol/L (-2.0-3.0); ABG HCO3 24.1 mmol/L (20.0-26.0); ABG Methemoglobin 0.6 % (0.0-1.5); ABG Oxygen Saturation 99.6 % (95.0-99.0); ABG PCO2 33.6 mm Hg; ABG PH 7.474 pH Units (7.350-7.450)
[2021-03-18 14:38] LABS: ABG PO2 451.4 mm Hg (80.0-90.0)
[2021-03-18] MEDS ORDERED: VANCOMYCIN 1,750 MG in SODIUM CHLORIDE 0.9% 500 ML 500 ML IV SCH (15:00)
[2021-03-18] MEDS ORDERED: VANCOMYCIN PHARMACY TO DOSE IV SCH (15:00)
[2021-03-18] MEDS: CEFEPIME/NS 1 GM/100 ML 1 GM/100 ML BAG IV SCH (16:20)
[2021-03-18] MEDS: HYDROCORTISONE SOD SUCC 100 MG/2 ML VIAL IV SCH ×2 (16:21→22:48)
[2021-03-18] MEDS ORDERED: DEXTROSE 50% IN WATER (25GM) 50 ML SYRINGE IV PRN (20:11)
[2021-03-19 03:51] LABS: Hematocrit 25.4 % (35.5-45.6); Hemoglobin 8.3 gm/dl (11.8-15.2); Mean Corpuscular HGB Conc 33 % (32-34); Mean Corpuscular Volume 89 fl (84-94); Red Blood Count 2.85 M/mm3 (3.65-5.03); Red Cell Distribution Width 19.9 % (13.2-15.2)
[2021-03-19 04:04] LABS: Platelet Count 75 K/mm3 (140-440)
[2021-03-19 04:08] LABS: Albumin 2.6 g/dL (3.9-5)
[2021-03-19 05:16] LABS: Basophils % (Manual) 0 % (0.0-1.8); Eosinophils % (Manual) 0 % (0.0-4.3); Total Cells Counted 100
[2021-03-19 05:22] LABS: Anisocytosis 1+; Platelet Estimate Consistent w Auto
[2021-03-19] MEDS: fentaNYL DRIP Premix 2,000 MCG/100 ML BAG IV SCH (05:51)
[2021-03-19] MEDS: DOPamine 800 MG in DEXTROSE 5% IN WATER 230 ML IV SCH ×2 (05:53→23:43)
[2021-03-19] MEDS: HYDROCORTISONE SOD SUCC 100 MG/2 ML VIAL IV SCH ×3 (06:48→21:46)
--- NOTE | 2021-03-19 08:05 | Consultation ---
History of Present Illness Consult date: 03/19/21 Requesting physician: PETE DWYER Reason for consult: other (acute hypoxic resp failure; Septic shock) History of present illness: HISTORY and HOSPITAL COURSE PER MEDICAL RECORDS 85 YO Male Alf Facility Resident at [facility] with ESRD on HD(M,W,F), DM, Vascular Dementia, Cerebral A therosclerosis, HTN, CVA, Legally Blind presents to ED for evaluation. Patient has diminished cognition and is unable to provide detailed history. Patient history provided as per ED staff, EMS staff, as well as personal correction staff. As per personal correction staff the patient was sent to dialysis today. Patient was found to have a heart rate in the 30s while undergoing dialysis. In his usual state of health prior to his dialysis. Patient returned from dialysis and was found to be confused and "not acting like himself". Patient experienced worsening symptoms over the ensuing timeframe. EMS was notified and upon arrival the patient was found to be in distress and subsequently transported to [facility] for further care and evaluation of the aforementioned symptoms. The patient was seen and evaluated in the emergency department. All lab and imaging studies reviewed. Patient found to have a systolic blood pressure in the 90s as well as clinical symptoms consistent with sick sinus syndrome. Patient with chest x-ray and was found to have evidence of pneumonia, metabolic encephalopathy, end-stage renal disease. Patient admitted to telemetry floor and initiated on pneumonia protocol. Nephrology team consulted in ED. Cardiology team consulted in ED. Patient is confused at time of my evaluation but has a positive gag reflex and is able to protect his airway. Per admission on 02/17/2021 reviewed. All medication listed at time of admission has been reconciled. Advanced care planning conducted in ED. Bennie Anderson Brother: [phone] Yvonne Anderson Daughter : [phone] Hospital Course: 03/18/2021: Respiratory distress this a.m. requiring intubation. Patient was obtunded this morning per RN report consistent with my exam findings today. I have a high suspicion for adrenal insufficiency. Cardiology following currently for symptomatic bradycardia pulse rate currently 70s. Per cardiology note, no indication for pacemaker at this time, they are okay with weaning dopamine gtt. Patient currently initiated on Levophed gtt, hydrocortisone, vanco/cefepime IV. Will continue to support with IVF, monitor UOP however suspect that this patient is anuric. Discussed patient case with [facility] caregiver and patient brother. Patient brother states that there is no spouse however patient has multiple children. Patient brother states that there is a daughter who is local to [place]. Her number was provided. Case management consulted for discharge planning Patient seen and examined. Vitals, labs, medications, chart and imaging reviewed. Discussed with respiratory and nursing care staff. Orally intubated MVS 24/450/+6/25% On Dopamine at 6mcg Past History Past Medical History: diabetes, ESRD, hypertension, stroke Past Surgical History: Other (Dialysis access) Social history: . denies: smoking, alcohol abuse, prescription drug abuse Family history: diabetes, hypertension Medications and Allergies Allergies Allergy/AdvReac Type Severity Reaction Status Date / Time No Known Allergies Allergy Verified 12/11/20 16:04 Home Medications Medication Instructions Recorded Confirmed Last Taken Type AtorvaSTATin [Lipitor] 20 mg PO QHS 01/21/21 02/17/21 01/19/21 21:00 History Lispro Insulin [HumaLOG] 0 unit SUB-Q ACHS units 02/01/21 02/17/21 Unknown Rx Sodium Chloride 0.9% Int [Sodium 10 ml IV BID syringe 02/01/21 02/17/21 Unknown Rx Chloride Flush Syringe 10 ml] diphenhydrAMINE/ZINC 2% [Banophen 1 applic TP Q8H PRN tube 02/01/21 02/17/21 Unknown Rx Anti-Itch] hydrOXYzine PAMOATE [Vistaril] 25 mg PO Q6H PRN capsule 02/01/21 02/17/21 Unknown Rx Acetaminophen [Acetaminophen TAB] 500 mg PO Q6HR 02/17/21 02/17/21 Unknown History Brimonidine 0.15% [Alphagan P 1 drops OD BID 02/17/21 02/17/21 Unknown History 0.15%] Cholecalciferol (Vitamin D3) 50,000 unit PO 2XW 02/17/21 02/17/21 Unknown History [Vitamin D3 50,000UNIT CAP] Colloidal Oatmeal [Eucerin Eczema 226 gm TP Q4H 02/17/21 02/17/21 Unknown History Relief] Docusate Sodium [Dok] 100 mg PO QDAY 02/17/21 02/17/21 Unknown History Dorzolamide HCl/Timolol Maleat 1 drop OD BID 02/17/21 02/17/21 Unknown History [Dorzolamide-Timolol Eye Drops] Famotidine [Pepcid] 20 mg PO BID 02/17/21 02/17/21 Unknown History Hydrocortisone/Aloe Vera 0 gm TP TID 02/17/21 02/17/21 Unknown History [Hydrocortisone-Aloe 0.5% Cream] Insulin Glargine,Hum.rec.anlog 9 units SQ QHS 02/17/21 02/17/21 Unknown History [Lantus Solostar] LORazepam [Ativan] 1 mg PO Q6H PRN 02/17/21 02/17/21 Unknown History Latanoprost 0.005% 1 drop OD QHS 02/17/21 02/17/21 Unknown History Metoprolol Xl [Metoprolol 25 mg PO BID 02/17/21 02/17/21 Unknown History SUCCINATE ER TAB] OLANZapine [Zyprexa] 5 mg PO QDAY 02/17/21 02/17/21 Unknown History Phenyleph/Mineral Oil/Petrolat 28 gm RC QDAY 02/17/21 02/17/21 Unknown History [Preparation H Ointment] Sevelamer Carbonate [Renvela] 1,600 mg PO TID 02/17/21 02/17/21 Unknown History diphenhydrAMINE [Benadryl CAP] 25 mg PO 3XW 02/17/21 02/17/21 Unknown History diphenhydrAMINE [Benadryl CAP] 25 mg PO Q6HR PRN 02/17/21 02/17/21 Unknown History hydrOXYzine HCL [Atarax] 25 mg PO Q6HR PRN 02/17/21 02/17/21 Unknown History lisinopriL [Lisinopril] 20 mg PO QDAY 02/17/21 02/17/21 Unknown History Active Meds: Active Medications Acetaminophen (Acetaminophen 325 Mg Tab) 650 mg PO Q4H PRN PRN Reason: Pain MILD(1-3)/Fever >100.5/LOCKE Albuterol (Albuterol 2.5 Mg/3 Ml Nebu) 2.5 mg IH Q4HRT PRN PRN Reason: Shortness Of Breath Atorvastatin Calcium (Atorvastatin 20 Mg Tab) 20 mg PO QHS [facility] Last Admin: 03/18/21 22:20 Dose: Not Given Dextrose (Dextrose 50% In Water (25gm) 50 Ml Syringe) 50 ml IV Q30MIN PRN; Protocol PRN Reason: Hypoglycemia Docusate Sodium (Docusate Sodium 100 Mg Cap) 100 mg PO QDAY [facility] Last Admin: 03/18/21 11:16 Dose: Not Given Famotidine (Famotidine 10 Mg Tab) 10 mg PO BID [facility] Last Admin: 03/18/21 22:20 Dose: Not Given Fentanyl (Fentanyl 100 Mcg/2 Ml Inj) 50 mcg IV Q10MIN PRN PRN Reason: ANALGESIA Hydrocortisone Sodium Succinate (Hydrocortisone Sod Succ 100 Mg/2 Ml Vial) 100 mg IV Q8HR [facility] Last Admin: 03/19/21 06:48 Dose: 100 mg Hydromorphone HCl (Hydromorphone 1 Mg/1 Ml Inj) 0.5 mg IV Q23H PRN PRN Reason: Pain , Severe (7-10) Hydroxyzine HCl (Hydroxyzine Hcl 25 Mg Tab) 25 mg PO Q6HR PRN PRN Reason: Itching Dopamine HCl 800 mg/ Dextrose 250 mls @ 3.113 mls/hr IV TITR [facility]; Protocol Last Titration: 03/19/21 06:31 Dose: 6 mcg/kg/min, 9.338 mls/hr Dextrose (D10w) 1,000 mls @ 75 mls/hr IV DIRECT [facility] Last Admin: 03/18/21 21:43 Dose: 75 mls/hr NORepinephrine/NS 8 MG-250 ML (Norepinephrine/Ns 8 Mg-250 Ml (Double Conc)) 8 mg in 250 mls @ 3.75 mls/hr IV TITRATE [facility]; Protocol Fentanyl Citrate (Fentanyl Drip Premix) 2,000 mcg in 100 mls @ 4.15 mls/hr IV TITR [facility]; Protocol Last Admin: 03/19/21 05:51 Dose: 2 mcg/kg/hr, 8.3 mls/hr Cefepime HCl (Cefepime/Ns 1 Gm/100 Ml) 1 gm in 100 mls @ 200 mls/hr IV Q24H [facility]; Protocol Last Admin: 03/18/21 16:20 Dose: 200 mls/hr Latanoprost (Latanoprost 0.005% Ophth Soln 2.5 Ml) 1 drops OD QHS [facility] Last Admin: 03/18/21 22:20 Dose: Not Given Lorazepam (Lorazepam 1 Mg Tab) 1 mg PO Q6H PRN PRN Reason: Anxiety Miscellaneous Medication (Dorzolamide Hcl/Timolol Maleat [Dorzolamide-Timolol Eye Drops]) 1 drop OD BID [facility] Last Admin: 03/18/21 22:20 Dose: Not Given Olanzapine (Olanzapine 5 Mg Tab) 5 mg PO QDAY [facility] Last Admin: 03/18/21 11:17 Dose: Not Given Ondansetron HCl (Ondansetron 4 Mg/2 Ml Inj) 4 mg IV Q8H PRN PRN Reason: Nausea And Vomiting Oxycodone/Acetaminophen (Oxycodone /Acetaminophen 5-325mg Tab) 1 tab PO Q16H PRN PRN Reason: Pain, Moderate (4-6) Phenyleph/Shark Oil/Min Oil/Petrol (Pe/Mo/Pet,Wh 10 Applic/28 Gm Tube) 1 applic [place] QDAY [facility] Last Admin: 03/18/21 11:16 Dose: 1 applic Sevelamer Carbonate (Sevelamer Carbonate 800 Mg Tab) 1,600 mg PO TID [facility] Last Admin: 03/18/21 22:19 Dose: Not Given Sodium Chloride (Sodium Chloride 0.9% 10 Ml Flush Syringe) 10 ml IV BID [facility] Last Admin: 03/18/21 22:20 Dose: 10 ml Sodium Chloride (Sodium Chloride 0.9% 10 Ml Flush Syringe) 10 ml IV PRN PRN PRN Reason: LINE FLUSH Zinc Acetate/Diphenhydramine (Diphenhydramine/Zinc Acet 2% Cream 28.4 Gm) 1 applic TP Q8H PRN PRN Reason: Itching Review of Systems ROS unobtainable: due to endotracheal tube, due to mental status Physical Examination Vital signs: Vital Signs Pulse Resp BP Pulse Ox 33 L 15 110/45 99 03/16/21 16:13 03/16/21 16:13 03/16/21 16:13 03/16/21 16:13 General appearance: other (chronically ill looking, orally intuabted to [facility] ETT SHRUTHI 23 cm) Eyes: non-icteric ENT: oropharynx dry Neck: supple, no lymphadenopathy, no JVD Effort: mildly labored Ascultation: Bilateral: diminished breath sounds, rhonchi Cardiovascular: other (S1,S2- bradycardia) Gastrointestinal: normoactive bowel sounds, soft, non-tender Integumentary: other (skin rash at different stages of healing- crusted, hyperp igmented diffuse) Extremities: no cyanosis, no edema unable to assess, other (Opacification of the left eye) Results - Laboratory Findings CBC and BMP: 03/19/21 03:08 03/19/21 03:08 ABG ABG pH 7.501 (7.320-7.450) H 03/19/21 06:05 POC ABG pCO2 28.9 mmHg (32.0-48.0) L 03/19/21 06:05 ABG pCO2 33.6 mm Hg 03/18/21 14:30 POC ABG pO2 117.8 mmHg (83-108) H 03/19/21 06:05 ABG pO2 451.4 mm Hg (80.0-90.0) H 03/18/21 14:30 POC ABG HCO3 22.1 03/19/21 06:05 ABG O2 Saturation 98.5 (0-100) 03/19/21 06:05 PT/INR, D-dimer PT 14.5 Sec. (12.2-14.9) 03/16/21 17:15 INR 1.02 (0.87-1.13) 03/16/21 17:15 Abnormal lab findings: Abnormal Labs 03/16/21 03/16/21 03/16/21 17:15 17:15 17:15 WBC 3.6 L RBC 2.62 L Hgb 7.7 L Hct 23.9 L RDW 21.8 H Plt Count 71 L Lymph % (Auto) 9.6 L Lymph # (Auto) 0.3 L Seg Neutrophils % 81.2 H Seg Neuts % (Manual) Lymphocytes % (Manual) Nucleated RBC % Seg Neutrophils # Man Lymphocytes # (Manual) APTT 47.7 H ABG pH POC ABG pCO2 POC ABG pO2 ABG pO2 ABG O2 Saturation ABG Hemoglobin Potassium 3.5 L Chloride Carbon Dioxide BUN 31 H Creatinine 4.1 H Glucose 143 H POC Glucose Calcium Phosphorus Alkaline Phosphatase 133 H Troponin T 0.047 H Total Protein 5.8 L Albumin 2.5 L LDL Cholesterol Direct 17 L 03/17/21 03/17/21 03/17/21 00:14 10:11 10:11 WBC RBC 2.26 L Hgb 6.6 L Hct 20.4 L RDW 21.2 H Plt Count 68 L Lymph % (Auto) 6.5 L Lymph # (Auto) 0.3 L Seg Neutrophils % 87.0 H Seg Neuts % (Manual) Lymphocytes % (Manual) Nucleated RBC % Seg Neutrophils # Man Lymphocytes # (Manual) APTT ABG pH POC ABG pCO2 POC ABG pO2 ABG pO2 ABG O2 Saturation ABG Hemoglobin Potassium Chloride 110.2 H Carbon Dioxide 21 L BUN 34 H Creatinine 4.1 H Glucose 61 L POC Glucose 118 H Calcium Phosphorus Alkaline Phosphatase Troponin T Total Protein Albumin LDL Cholesterol Direct 03/17/21 03/17/21 03/17/21 15:16 16:16 17:18 WBC RBC Hgb Hct RDW Plt Count Lymph % (Auto) Lymph # (Auto) Seg Neutrophils % Seg Neuts % (Manual) Lymphocytes % (Manual) Nucleated RBC % Seg Neutrophils # Man Lymphocytes # (Manual) APTT ABG pH POC ABG pCO2 POC ABG pO2 ABG pO2 ABG O2 Saturation ABG Hemoglobin Potassium Chloride Carbon Dioxide BUN Creatinine Glucose POC Glucose 69 L 59 L 60 L Calcium Phosphorus Alkaline Phosphatase Troponin T Total Protein Albumin LDL Cholesterol Direct 03/17/21 03/18/21 03/18/21 22:28 00:32 01:46 WBC RBC Hgb Hct RDW Plt Count Lymph % (Auto) Lymph # (Auto) Seg Neutrophils % Seg Neuts % (Manual) Lymphocytes % (Manual) Nucleated RBC % Seg Neutrophils # Man Lymphocytes # (Manual) APTT ABG pH POC ABG pCO2 POC ABG pO2 ABG pO2 ABG O2 Saturation ABG Hemoglobin Potassium Chloride Carbon Dioxide BUN Creatinine Glucose POC Glucose 32 L 12 L 53 L Calcium Phosphorus Alkaline Phosphatase Troponin T Total Protein Albumin LDL Cholesterol Direct 03/18/21 03/18/21 03/18/21 03:14 05:00 05:00 WBC RBC 2.57 L Hgb 7.4 L Hct 23.2 L RDW 20.8 H Plt Count 77 L Lymph % (Auto) Lymph # (Auto) Seg Neutrophils % Seg Neuts % (Manual) Lymphocytes % (Manual) Nucleated RBC % Seg Neutrophils # Man Lymphocytes # (Manual) APTT ABG pH POC ABG pCO2 POC ABG pO2 ABG pO2 ABG O2 Saturation ABG Hemoglobin Potassium Chloride 107.8 H Carbon Dioxide BUN 40 H Creatinine 4.8 H Glucose 44 L POC Glucose 38 L Calcium Phosphorus Alkaline Phosphatase Troponin T Total Protein Albumin LDL Cholesterol Direct 03/18/21 03/18/21 03/18/21 07:06 08:01 09:09 WBC RBC Hgb Hct RDW Plt Count Lymph % (Auto) Lymph # (Auto) Seg Neutrophils % Seg Neuts % (Manual) Lymphocytes % (Manual) Nucleated RBC % Seg Neutrophils # Man Lymphocytes # (Manual) APTT ABG pH POC ABG pCO2 POC ABG pO2 ABG pO2 ABG O2 Saturation ABG Hemoglobin Potassium Chloride Carbon Dioxide BUN Creatinine Glucose POC Glucose 60 L 65 L 64 L Calcium Phosphorus Alkaline Phosphatase Troponin T Total Protein Albumin LDL Cholesterol Direct 03/18/21 03/18/21 03/18/21 11:37 14:30 20:01 WBC RBC Hgb Hct RDW Plt Count Lymph % (Auto) Lymph # (Auto) Seg Neutrophils % Seg Neuts % (Manual) Lymphocytes % (Manual) Nucleated RBC % Seg Neutrophils # Man Lymphocytes # (Manual) APTT ABG pH 7.474 H POC ABG pCO2 POC ABG pO2 ABG pO2 451.4 H ABG O2 Saturation 99.6 H ABG Hemoglobin 7.2 L Potassium Chloride Carbon Dioxide BUN Creatinine Glucose POC Glucose 60 L 39 L Calcium Phosphorus Alkaline Phosphatase Troponin T Total Protein Albumin LDL Cholesterol Direct 03/19/21 03/19/21 03/19/21 00:39 03:08 03:08 WBC RBC 2.85 L Hgb 8.3 L Hct 25.4 L RDW 19.9 H Plt Count 75 L Lymph % (Auto) Lymph # (Auto) Seg Neutrophils % Seg Neuts % (Manual) 98.0 H Lymphocytes % (Manual) 1.0 L Nucleated RBC % 1.0 H Seg Neutrophils # Man 10.6 H Lymphocytes # (Manual) 0.1 L APTT ABG pH POC ABG pCO2 POC ABG pO2 ABG pO2 ABG O2 Saturation ABG Hemoglobin Potassium Chloride Carbon Dioxide 21 L BUN 49 H Creatinine 5.1 H Glucose 239 H POC Glucose 120 H Calcium 8.0 L Phosphorus 1.90 L Alkaline Phosphatase 154 H Troponin T Total Protein 5.1 L Albumin 2.6 L LDL Cholesterol Direct 03/19/21 03/19/21 03/19/21 04:46 05:56 06:05 WBC RBC Hgb Hct RDW Plt Count Lymph % (Auto) Lymph # (Auto) Seg Neutrophils % Seg Neuts % (Manual) Lymphocytes % (Manual) Nucleated RBC % Seg Neutrophils # Man Lymphocytes # (Manual) APTT ABG pH 7.501 H POC ABG pCO2 28.9 L POC ABG pO2 117.8 H ABG pO2 ABG O2 Saturation ABG Hemoglobin 8.31 L Potassium Chloride Carbon Dioxide BUN Creatinine Glucose POC Glucose 185 H 184 H Calcium Phosphorus Alkaline Phosphatase Troponin T Total Protein Albumin LDL Cholesterol Direct - Diagnostic Findings Chest x-ray: image reviewed Additional studies: Echocardiogram 01/2021 EF 55 to 60%, moderate LVH, left ventricular diastolic function is normal, right ventricle systolic function is normal. Left and right atrium are normal in size. Assessment and Plan Acute hypoxic respiratory failure Septic shock Pneumonia Symptomatic bradycardia ESRD requiring hemodialysis Had discussed the patient with hospital medicine- in the setting of his presenting symptoms, he has to be treated as septic shock with possibel adrenal insufficiency- antibiotics were empirically started ( Cover for MRSA and GNR) -Follow cultures Place CVL for vasopressor support, add Norepinephrine to maintain MAP>65 Can add midorine to help with hemodynamic support -Titrate supplemental oxygen to keep SPO2 88-90% -VAP bundle addressed, aspiration precautions -Wound care to evaluate skin lesions -Supportive HD per renal service -VTE prophylaxis -Stress ulcer prophylaxis -Adjust minute ventilation- patient has a respiratory alkalosis -Agree with stress dose steroids -IV boluses of Fentanyl for for pain management -With hemodynamic instability and bradycardia use Midazolam prn dosing for sedation -Mobility, off loading and frequent turning to avoid pressure ulcers - Supportive transfusions as clinically indicated, to keep Hgb >7g/dL -Address nutritional support -Accuchecks, avoid hypoglycemia -Contact and airborne isolation, COVID test pending CONDITION: CRITICAL PROGNOSIS; GUARDED CODE STATUS FULL CODE The high probability of a clinically significant, sudden or life threatening deterioration of the respiratory, cardiovascular,renal, neurology system(s) required my full and direct attention, intervention and personal management. The aggregate critical care time was [35] minutes. This time is in addition to time spent performing reported procedures but includes the following: [x] Data Review and interpretation [x] Patient assessment and monitoring of vital signs [x] Documentation [x] Medication orders and management
--- NOTE | 2021-03-19 09:03 | XRay Report ---
CHEST - 1 VIEW 0735 hours INDICATION: pneumonia COMPARISON: Yesterday FINDINGS: Support devices: Adequate support device positioning. Heart: Stable cardiomediastinal silhouette. Lungs/pleura: Bibasilar airspace opacities appear stable. No large pleural effusion or pneumothorax. Additional findings: None. IMPRESSION: Unchanged exam. Signer Name: Stephen Navas Jr, MD Signed: 03/19/2021 8:59 AM Workstation Name: [id number]
[2021-03-19] MEDS ORDERED: SODIUM PHOSPHATE 30 MMOL in SODIUM CHLORIDE 0.9% 500 ML 500 ML IV SCH (09:15)
[2021-03-19] MEDS ORDERED: SODIUM CHLORIDE 0.9% 100 ML IV PRN (09:34)
--- NOTE | 2021-03-19 09:36 | Progress Note ---
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 He is not hemodyncamically stable for hemodialysis * Vent management per pulm * Pressors prn to maintain MAP>65 * Cardiology following * Transfuse pRBC prn * Dose medications for renal function * Avoid potential nephrotoxins * Subjective Date of service: 03/19/21 Principal diagnosis: Bilateral pneumonia, CHF exacerbation Interval history: Patient is currently intubated. He is s/p cardiac arrest x 2. He is now on Dopamine/Vasopressin/Epi/Levophed. Objective - Vital Signs Vital signs: Vital Signs - 12hr 03/18/21 03/18/21 03/18/21 22:01 22:31 23:01 Temperature Pulse Rate 66 65 64 Respiratory 24 24 24 Rate Blood Pressure 142/51 154/43 147/43 O2 Sat by Pulse 100 100 100 Oximetry 03/18/21 03/19/21 03/19/21 23:31 00:01 00:31 Temperature Pulse Rate 60 65 63 Respiratory 24 24 24 Rate Blood Pressure 155/52 156/53 158/54 O2 Sat by Pulse 100 100 100 Oximetry 03/19/21 03/19/21 03/19/21 01:00 01:01 01:31 Temperature Pulse Rate 63 63 71 Respiratory 24 23 Rate Blood Pressure 158/52 108/46 O2 Sat by Pulse 100 100 100 Oximetry 03/19/21 03/19/21 03/19/21 02:01 02:31 03:01 Temperature Pulse Rate 64 64 64 Respiratory 24 24 24 Rate Blood Pressure 146/55 163/49 162/53 O2 Sat by Pulse 100 100 100 Oximetry 03/19/21 03/19/21 03/19/21 03:31 04:01 04:15 Temperature Pulse Rate 59 L 61 64 Respiratory 24 24 24 Rate Blood Pressure 169/56 174/48 145/49 O2 Sat by Pulse 100 100 100 Oximetry 03/19/21 03/19/21 03/19/21 05:00 05:11 05:15 Temperature Pulse Rate 83 89 79 Respiratory 24 22 Rate Blood Pressure 74/27 149/70 O2 Sat by Pulse 100 100 100 Oximetry 03/19/21 03/19/21 03/19/21 05:30 05:45 05:56 Temperature 93.7 F L Pulse Rate 76 76 Respiratory 24 24 Rate Blood Pressure 146/59 167/53 O2 Sat by Pulse 100 100 Oximetry 03/19/21 03/19/21 03/19/21 06:00 06:01 06:15 Temperature Pulse Rate 72 72 Respiratory 24 24 24 Rate Blood Pressure 151/55 152/56 O2 Sat by Pulse 100 100 100 Oximetry 03/19/21 03/19/21 03/19/21 06:31 06:43 06:45 Temperature Pulse Rate 66 66 65 Respiratory 24 24 Rate Blood Pressure 153/49 142/49 O2 Sat by Pulse 100 100 Oximetry 03/19/21 03/19/21 03/19/21 07:00 07:15 07:30 Temperature Pulse Rate 67 68 69 Respiratory 24 24 24 Rate Blood Pressure 130/52 136/51 145/52 O2 Sat by Pulse 100 100 100 Oximetry 03/19/21 03/19/21 03/19/21 07:45 08:00 08:15 Temperature Pulse Rate 77 75 64 Respiratory 24 25 H 24 Rate Blood Pressure 132/59 140/63 140/63 O2 Sat by Pulse 98 100 100 Oximetry 03/19/21 03/19/21 03/19/21 08:30 08:45 08:55 Temperature Pulse Rate 70 69 Respiratory 24 24 24 Rate Blood Pressure 131/59 127/52 O2 Sat by Pulse 100 100 100 Oximetry 03/19/21 08:59 Temperature 96.4 F L Pulse Rate Respiratory Rate Blood Pressure O2 Sat by Pulse Oximetry - General Appearance General appearance: intubated EENT: other (ETT in place) Respiratory: Present: Other (coarse breath sounds) Cardiology: regular, S1S2 Gastrointestinal: hypoactive bowel sounds Integumentary: rash - Lab 03/19/21 03:08 03/19/21 03:08 Most recent lab results ABG pH 7.501 (7.320-7.450) H 03/19/21 06:05 ABG pCO2 33.6 mm Hg 03/18/21 14:30 ABG pO2 451.4 mm Hg (80.0-90.0) H 03/18/21 14:30 ABG HCO3 24.1 mmol/L (20.0-26.0) 03/18/21 14:30 ABG O2 Saturation 98.5 (0-100) 03/19/21 06:05 Calcium 8.0 mg/dL (8.4-10.2) L 03/19/21 03:08 Phosphorus 1.90 mg/dL (2.5-4.5) L 03/19/21 03:08 Magnesium 1.90 mg/dL (1.7-2.3) 03/19/21 03:08 Medications & Allergies - Medications Allergies/Adverse Reactions: Allergies No Known Allergies Allergy (Verified 12/11/20 16:04) Home Medications: Home Medications Medication Instructions Recorded Confirmed Last Taken Type AtorvaSTATin [Lipitor] 20 mg PO QHS 01/21/21 02/17/21 01/19/21 21:00 History Lispro Insulin [HumaLOG] 0 unit SUB-Q ACHS units 02/01/21 02/17/21 Unknown Rx Sodium Chloride 0.9% Int [Sodium 10 ml IV BID syringe 02/01/21 02/17/21 Unknown Rx Chloride Flush Syringe 10 ml] diphenhydrAMINE/ZINC 2% [Banophen 1 applic TP Q8H PRN tube 02/01/21 02/17/21 Unknown Rx Anti-Itch] hydrOXYzine PAMOATE [Vistaril] 25 mg PO Q6H PRN capsule 02/01/21 02/17/21 Unknown Rx Acetaminophen [Acetaminophen TAB] 500 mg PO Q6HR 02/17/21 02/17/21 Unknown History Brimonidine 0.15% [Alphagan P 1 drops OD BID 02/17/21 02/17/21 Unknown History 0.15%] Cholecalciferol (Vitamin D3) 50,000 unit PO 2XW 02/17/21 02/17/21 Unknown History [Vitamin D3 50,000UNIT CAP] Colloidal Oatmeal [Eucerin Eczema 226 gm TP Q4H 02/17/21 02/17/21 Unknown History Relief] Docusate Sodium [Dok] 100 mg PO QDAY 02/17/21 02/17/21 Unknown History Dorzolamide HCl/Timolol Maleat 1 drop OD BID 02/17/21 02/17/21 Unknown History [Dorzolamide-Timolol Eye Drops] Famotidine [Pepcid] 20 mg PO BID 02/17/21 02/17/21 Unknown History Hydrocortisone/Aloe Vera 0 gm TP TID 02/17/21 02/17/21 Unknown History [Hydrocortisone-Aloe 0.5% Cream] Insulin Glargine,Hum.rec.anlog 9 units SQ QHS 02/17/21 02/17/21 Unknown History [Lantus Solostar] LORazepam [Ativan] 1 mg PO Q6H PRN 02/17/21 02/17/21 Unknown History Latanoprost 0.005% 1 drop OD QHS 02/17/21 02/17/21 Unknown History Metoprolol Xl [Metoprolol 25 mg PO BID 02/17/21 02/17/21 Unknown History SUCCINATE ER TAB] OLANZapine [Zyprexa] 5 mg PO QDAY 02/17/21 02/17/21 Unknown History Phenyleph/Mineral Oil/Petrolat 28 gm RC QDAY 02/17/21 02/17/21 Unknown History [Preparation H Ointment] Sevelamer Carbonate [Renvela] 1,600 mg PO TID 02/17/21 02/17/21 Unknown History diphenhydrAMINE [Benadryl CAP] 25 mg PO 3XW 02/17/21 02/17/21 Unknown History diphenhydrAMINE [Benadryl CAP] 25 mg PO Q6HR PRN 02/17/21 02/17/21 Unknown History hydrOXYzine HCL [Atarax] 25 mg PO Q6HR PRN 02/17/21 02/17/21 Unknown History lisinopriL [Lisinopril] 20 mg PO QDAY 02/17/21 02/17/21 Unknown History Active Medications: Generic Name Dose Route Start Last Admin Trade Name Freq PRN Reason Stop Dose Admin Acetaminophen 650 mg 03/16/21 18:54 Acetaminophen 325 Mg Tab PO Q4H PRN Pain MILD(1-3)/Fever >100.5/LOCKE Albuterol 2.5 mg 03/16/21 18:54 Albuterol 2.5 Mg/3 Ml Nebu IH Q4HRT PRN Shortness Of Breath Atorvastatin Calcium 20 mg 03/16/21 22:00 03/18/21 22:20 Atorvastatin 20 Mg Tab PO Not Given QHS CRISTELA Dextrose 50 ml 03/18/21 20:11 Dextrose 50% In Water (25gm) 50 Ml Syringe IV Q30MIN PRN Hypoglycemia Protocol Docusate Sodium 100 mg 03/17/21 10:00 03/18/21 11:16 Docusate Sodium 100 Mg Cap PO Not Given QDAY CRISTELA Famotidine 10 mg 03/17/21 10:00 03/18/21 22:20 Famotidine 10 Mg Tab PO Not Given BID CRISTELA Fentanyl 50 mcg 03/18/21 12:54 Fentanyl 100 Mcg/2 Ml Inj IV Q10MIN PRN ANALGESIA Hydrocortisone Sodium Succinate 100 mg 03/18/21 15:00 03/19/21 06:48 Hydrocortisone Sod Succ 100 Mg/2 Ml Vial IV 100 mg Q8HR CRISTELA Administration Hydromorphone HCl 0.5 mg 03/16/21 18:54 Hydromorphone 1 Mg/1 Ml Inj IV Q23H PRN Pain , Severe (7-10) Hydroxyzine HCl 25 mg 03/16/21 18:57 Hydroxyzine Hcl 25 Mg Tab PO Q6HR PRN Itching Dopamine HCl 800 mg/ Dextrose 250 mls @ 3.113 mls/hr 03/17/21 14:00 03/19/21 06:31 IV 6 mcg/kg/min TITR CRISTELA 9.338 mls/hr Titration Protocol 2 MCG/KG/MIN Dextrose 1,000 mls @ 75 mls/hr 03/18/21 02:00 03/18/21 21:43 D10w IV 75 mls/hr DIRECT CRISTELA Administration NORepinephrine/NS 8 MG-250 ML 8 mg in 250 mls @ 3.75 mls/hr 03/18/21 15:00 Norepinephrine/Ns 8 Mg-250 Ml (Double Conc) IV TITRATE CRISTELA Protocol 2 MCG/MIN Fentanyl Citrate 2,000 mcg in 100 mls @ 4.15 mls/hr 03/18/21 13:00 03/19/21 05:51 Fentanyl Drip Premix IV 2 mcg/kg/hr TITR CRISTELA 8.3 mls/hr Administration Protocol 1 MCG/KG/HR Cefepime HCl 1 gm in 100 mls @ 200 mls/hr 03/18/21 15:00 03/18/21 16:20 Cefepime/Ns 1 Gm/100 Ml IV 200 mls/hr Q24H CRISTELA Administration Protocol Sodium Phosphate 30 mmol/ 510 mls @ 125 mls/hr 03/19/21 09:15 Sodium Chloride IV 03/19/21 12:15 [id number] CRISTELA Sodium Chloride 100 mls @ 999 mls/hr 03/19/21 09:34 Nacl 0.9% IV LATANYA PRN Hypotension Latanoprost 1 drops 03/16/21 22:00 03/18/21 22:20 Latanoprost 0.005% Ophth Soln 2.5 Ml OD Not Given QHS CRISTELA Lorazepam 1 mg 03/16/21 18:57 Lorazepam 1 Mg Tab PO Q6H PRN Anxiety Midodrine 2.5 mg 03/19/21 09:00 Midodrine 2.5 Mg Tab PO Q8HR [facility] Miscellaneous Medication 1 drop 03/16/21 22:00 03/18/21 22:20 Dorzolamide Hcl/Timolol Maleat [Dorzolamide-Timolol Eye Drops] OD Not Given BID CRISTELA Olanzapine 5 mg 03/17/21 10:00 03/18/21 11:17 Olanzapine 5 Mg Tab PO Not Given QDAY [facility] Ondansetron HCl 4 mg 03/16/21 18:54 Ondansetron 4 Mg/2 Ml Inj IV Q8H PRN Nausea And Vomiting Oxycodone/Acetaminophen 1 tab 03/16/21 18:54 Oxycodone /Acetaminophen 5-325mg Tab PO Q16H PRN Pain, Moderate (4-6) Phenyleph/Shark Oil/Min Oil/Petrol 1 applic 03/17/21 10:00 03/18/21 11:16 Pe/Mo/Pet,Wh 10 Applic/28 Gm Tube SD 1 applic QDAY CRISTELA Administration Sevelamer Carbonate 1,600 mg 03/16/21 20:00 03/18/21 22:19 Sevelamer Carbonate 800 Mg Tab PO Not Given TID CRISTELA Sodium Chloride 10 ml 03/16/21 22:00 03/18/21 22:20 Sodium Chloride 0.9% 10 Ml Flush Syringe IV 10 ml BID CRISTELA Administration Sodium Chloride 10 ml 03/16/21 18:54 Sodium Chloride 0.9% 10 Ml Flush Syringe IV PRN PRN LINE FLUSH Zinc Acetate/Diphenhydramine 1 applic 03/16/21 18:57 Diphenhydramine/Zinc Acet 2% Cream 28.4 Gm TP Q8H PRN Itching
[2021-03-19] MEDS: MIDODRINE 2.5 MG TAB PO SCH ×3 (10:12→22:01)
[2021-03-19] MEDS: FAMOTIDINE 10 MG TAB PO SCH (10:12)
[2021-03-19] MEDS: SEVELAMER CARBONATE 800 MG TAB PO SCH ×3 (10:12→21:59)
[2021-03-19] MEDS: DOCUSATE SODIUM 100 MG CAP PO SCH (10:13)
[2021-03-19] MEDS ORDERED: LIPASE 10,500/PROTEASE 25,000/AMYLASE 43,750 (UNITS) DR CAP FEEDTUBE PRN (10:34)
[2021-03-19] MEDS ORDERED: SIMPLE SYRUP 15 ML FEEDTUBE PRN ×2 (10:34)
[2021-03-19] MEDS ORDERED: SODIUM BICARBONATE 325 MG TAB FEEDTUBE PRN (10:34)
[2021-03-19] MEDS: PE/MO/PET,WH 10 APPLIC/28 GM TUBE PR SCH (10:35)
--- NOTE | 2021-03-19 10:41 | Progress Note ---
<JOSEFINA DOBSON - Last Filed: 03/19/21 16:44> Assessment and Plan Assessment and plan: This is a 85-year-old male with past medical history of ESRD on HD(M,W,F), DM, Vascular Dementia, Cerebral Atherosclerosis, HTN, CVA, Legally Blind admitted for sepsis 2/2 pneumonia and bradycardia. On 03/18 patient went into respiratory distress requiring ventilatory support. Hospital Course: 03/18/2021: Respiratory distress this a.m. requiring intubation. Patient was obtunded this morning per RN report consistent with my exam findings today. I have a high suspicion for adrenal insufficiency. Cardiology following currently for symptomatic bradycardia pulse rate currently 70s. Per cardiology note, no indication for pacemaker at this time, they are okay with weaning dopamine gtt. Patient currently initiated on Levophed gtt, hydrocortisone, vanco/cefepime IV. Will continue to support with IVF, monitor UOP however suspect that this patient is anuric. Discussed patient case with jail caregiver and patient brother. Patient brother states that there is no spouse however patient has multiple children. Patient brother states that there is a daughter who is local to [place]. Her number was provided. Case management consulted for discharge planning. 03/19: Remains on dopamine gtt, still junctional on the monitor. Midodrine added, Plan to wean off pressor for MAP goal above 65. Enteral feeding initiated, D10W stopped. Assessment and Plan: #Acute hypoxic respiratory failure #COVID PUI - Hypoxic, not protecting airway on 03/18 encounter Intubated 03/18 - Vent setting:A/C-25%,6,24,450 - AM ABG noted - CCM consulted, appreciate recommendations - VAP bundle addressed - Aspiration precaution HOB above 30 - Sedation for RASS goal 0 to -1 - Daily SBT and SAT trials as tolerated - Daily ABG and CXR - Continue SPO2 monitoring for SPO2 goal above 92% #Septic shock - Hypotensive, hypothermic, and bradycardia on admission, leukopenic - Bcx, Scx, Ucx - COVID PCR pending - On dopamine gtt Titrate pressors to maintain MAP greater than 65 - Midrodrine added Antibiotic therapy with vancomycin IV, cefepime IV #Bilateral Pneumonia #COVID PUI - CXR with bilateral opacities - COVID PCR pending - Remains hypotermic - Blood culture and sputum culture is pending - Continue IV ABxvancomycin/Cefepime - Continue to F/U on B.cult - Daily CBC monitor #Symptomatic bradycardia - EK, junctional rhythm apparent. Was not pacing. - ECHO 1-2 mo ago: normal study 55-60%. - Patient remains in Junctional rhythm this am, HR 50 to 60s - cardiology consulted, no indication for ppm - Remains on Dopamine, plan to wean off as tolerated per Cardio #Adrenal insufficiency - Cortisol level was sent as was TSH = 3.8. - Hypotensive, hypothermic, hypoglycemic, hypokalemic on admission Hydrocortisone 100 mg iv q8hr initiated #ESRD requiring hemodialysis #Hypophosphatemia - Creatinine 4.8 - Avoid nephrotoxins, renally adjust meds - Judicious fluid utilization as patient appears to be anuric - Nephrology on consult - HD per Nephro - Monitor and replace electrolytes as needed - Trend BMP #Hyperglycemia - Presented with hypoglycemia, now hypeglycemia - D10W on hold, patient is also on IV steroids - Enteral nutrition initiated - BG check Q6hrs - Avoid hypoglycemia #Thrombocytopenia - Low plt since admit, unclear etiology - No AC at this time - SCDs to bilateral lower extremities while in bed Bennie Anderson Brother: [phone] Yvonne Anderson Daughter : [phone] The high probability of a clinically significant, sudden or life threatening deterioration of the [multi] system(s) required my full and direct attention, intervention and personal management. The aggregate critical care time was [60] minutes. This time is in addition to time spent performing reported procedures but includes the following: [x] Data Review and interpretation [x] Patient assessment and monitoring of vital signs [x] Documentation [x] Medication orders and management History Interval history: Patient seen and examined at the bedside. Intubated and sedated. On dopamine gtt. TINO overnight Hospitalist Physical - Constitutional Vitals: Temp Pulse Resp BP Pulse Ox 96.4 F L 67 24 108/42 100 03/19/21 08:59 03/19/21 10:00 03/19/21 10:00 03/19/21 10:00 03/19/21 10:00 General appearance: Present: no acute distress, other (Intubated and sedated) - EENT Eyes: Present: irregular pupil - Respiratory Respiratory effort: normal Respiratory: bilateral: rhonchi - Cardiovascular Rhythm: regular (Junctional rhythm) Heart Sounds: Present: S1 & S2 - Extremities Extremities: abnormal Peripheral Pulses: within normal limits - Abdominal General gastrointestinal: soft, non-distended, hypoactive bowel sounds - Integumentary Integumentary: Present: dry (Generalized open wounds throughout body) - Psychiatric Psychiatric: other (Intubated and sedated) - Neurologic Neurologic: other (Intubated and sedated) - Allied Health Allied health notes reviewed: nursing HEART Score - HEART Score Troponin: Troponin T 0.047 ng/mL (0.00-0.029) H 03/16/21 17:15 Results - Labs CBC & Chem 7: 03/19/21 03:08 03/19/21 03:08 Labs: Laboratory Last Values WBC 10.8 K/mm3 (4.5-11.0) 03/19/21 03:08 RBC 2.85 M/mm3 (3.65-5.03) L 03/19/21 03:08 Hgb 8.3 gm/dl (11.8-15.2) L 03/19/21 03:08 Hct 25.4 % (35.5-45.6) L 03/19/21 03:08 MCV 89 fl (84-94) 03/19/21 03:08 MCH 29 pg (28-32) 03/19/21 03:08 MCHC 33 % (32-34) 03/19/21 03:08 RDW 19.9 % (13.2-15.2) H 03/19/21 03:08 Plt Count 75 K/mm3 (140-440) L 03/19/21 03:08 Lymph % (Auto) 6.5 % (13.4-35.0) L 03/17/21 10:11 Stokes % (Auto) 3.9 % (0.0-7.3) 03/17/21 10:11 Eos % (Auto) 1.9 % (0.0-4.3) 03/17/21 10:11 Baso % (Auto) 0.7 % (0.0-1.8) 03/17/21 10:11 Lymph # (Auto) 0.3 K/mm3 (1.2-5.4) L 03/17/21 10:11 Stokes # (Auto) 0.2 K/mm3 (0.0-0.8) 03/17/21 10:11 Eos # (Auto) 0.1 K/mm3 (0.0-0.4) 03/17/21 10:11 Baso # (Auto) 0.0 K/mm3 (0.0-0.1) 03/17/21 10:11 Add Manual Diff Complete 03/19/21 03:08 Total Counted 100 03/19/21 03:08 Seg Neutrophils % Traveling Storekeeper 03/19/21 03:08 Seg Neuts % (Manual) 98.0 % (40.0-70.0) H 03/19/21 03:08 Band Neutrophils % 0 % 03/19/21 03:08 Lymphocytes % (Manual) 1.0 % (13.4-35.0) L 03/19/21 03:08 Reactive Lymphs % (Man) 0 % 03/19/21 03:08 Monocytes % (Manual) 1.0 % (0.0-7.3) 03/19/21 03:08 Eosinophils % (Manual) 0 % (0.0-4.3) 03/19/21 03:08 Basophils % (Manual) 0 % (0.0-1.8) 03/19/21 03:08 Metamyelocytes % 0 % 03/19/21 03:08 Myelocytes % 0 % 03/19/21 03:08 Promyelocytes % 0 % 03/19/21 03:08 Blast Cells % 0 % 03/19/21 03:08 Nucleated RBC % 1.0 % (0.0-0.9) H 03/19/21 03:08 Seg Neutrophils # 4.4 K/mm3 (1.8-7.7) 03/17/21 10:11 Seg Neutrophils # Man 10.6 K/mm3 (1.8-7.7) H 03/19/21 03:08 Band Neutrophils # 0.0 K/mm3 03/19/21 03:08 Lymphocytes # (Manual) 0.1 K/mm3 (1.2-5.4) L 03/19/21 03:08 Abs React Lymphs (Man) 0.0 K/mm3 03/19/21 03:08 Monocytes # (Manual) 0.1 K/mm3 (0.0-0.8) 03/19/21 03:08 Eosinophils # (Manual) 0.0 K/mm3 (0.0-0.4) 03/19/21 03:08 Basophils # (Manual) 0.0 K/mm3 (0.0-0.1) 03/19/21 03:08 Metamyelocytes # 0.0 K/mm3 03/19/21 03:08 Myelocytes # 0.0 K/mm3 03/19/21 03:08 Promyelocytes # 0.0 K/mm3 03/19/21 03:08 Blast Cells # 0.0 K/mm3 03/19/21 03:08 WBC Morphology Not Reportable 03/19/21 03:08 Hypersegmented Neuts Not Reportable 03/19/21 03:08 Hyposegmented Neuts Not Reportable 03/19/21 03:08 Hypogranular Neuts Not Reportable 03/19/21 03:08 Smudge Cells Not Reportable 03/19/21 03:08 Toxic Granulation Not Reportable 03/19/21 03:08 Toxic Vacuolation Not Reportable 03/19/21 03:08 Dohle Bodies Not Reportable 03/19/21 03:08 Pelger-Huet Anomaly Not Reportable 03/19/21 03:08 Amari Rods Not Reportable 03/19/21 03:08 Platelet Estimate Consistent w auto 03/19/21 03:08 Clumped Platelets Not Reportable 03/19/21 03:08 Plt Clumps, EDTA Not Reportable 03/19/21 03:08 Large Platelets Not Reportable 03/19/21 03:08 Giant Platelets Not Reportable 03/19/21 03:08 Platelet Satelliting Not Reportable 03/19/21 03:08 Plt Morphology Comment Not Reportable 03/19/21 03:08 RBC Morphology Not Reportable 03/19/21 03:08 Dimorphic RBCs Not Reportable 03/19/21 03:08 Polychromasia Not Reportable 03/19/21 03:08 Hypochromasia Not Reportable 03/19/21 03:08 Poikilocytosis Not Reportable 03/19/21 03:08 Anisocytosis 1+ 03/19/21 03:08 Microcytosis Not Reportable 03/19/21 03:08 Macrocytosis Not Reportable 03/19/21 03:08 Spherocytes Not Reportable 03/19/21 03:08 Pappenheimer Bodies Not Reportable 03/19/21 03:08 Sickle Cells Not Reportable 03/19/21 03:08 Target Cells Not Reportable 03/19/21 03:08 Tear Drop Cells Not Reportable 03/19/21 03:08 Ovalocytes Not Reportable 03/19/21 03:08 Helmet Cells Not Reportable 03/19/21 03:08 [place] Bodies Not Reportable 03/19/21 03:08 [place] Rings Not Reportable 03/19/21 03:08 Carmen Cells Not Reportable 03/19/21 03:08 Bite Cells Not Reportable 03/19/21 03:08 Crenated Cell Not Reportable 03/19/21 03:08 Elliptocytes Not Reportable 03/19/21 03:08 Acanthocytes (Spur) Not Reportable 03/19/21 03:08 Rouleaux Not Reportable 03/19/21 03:08 Hemoglobin C Crystals Not Reportable 03/19/21 03:08 Schistocytes Not Reportable 03/19/21 03:08 Malaria parasites Not Reportable 03/19/21 03:08 [place] Bodies Not Reportable 03/19/21 03:08 Hem Pathologist Commnt No 03/19/21 03:08 PT 14.5 Sec. (12.2-14.9) 03/16/21 17:15 INR 1.02 (0.87-1.13) 03/16/21 17:15 APTT 47.7 Sec. (24.2-36.6) H 03/16/21 17:15 ABG pH 7.501 (7.320-7.450) H 03/19/21 06:05 POC ABG pCO2 28.9 mmHg (32.0-48.0) L 03/19/21 06:05 ABG pCO2 33.6 mm Hg 03/18/21 14:30 POC ABG pO2 117.8 mmHg (83-108) H 03/19/21 06:05 ABG pO2 451.4 mm Hg (80.0-90.0) H 03/18/21 14:30 POC ABG HCO3 22.1 03/19/21 06:05 ABG HCO3 24.1 mmol/L (20.0-26.0) 03/18/21 14:30 ABG O2 Saturation 98.5 (0-100) 03/19/21 06:05 ABG O2 Content 11.1 (0.0-44) 03/18/21 14:30 POC ABG Base Excess -0.7 03/19/21 06:05 ABG Base Excess 0.6 mmol/L (-2.0-3.0) 03/18/21 14:30 ABG Hemoglobin 8.31 (12.0-17.5) L 03/19/21 06:05 ABG Oxyhemoglobin 96.5 (94-98) 03/19/21 06:05 ABG Carboxyhemoglobin 1.6 % (0.0-5.0) 03/18/21 14:30 ABG Methemoglobin 0.5 (0.0-1.5) 03/19/21 06:05 Oxyhemoglobin 97.4 % (95.0-99.0) 03/18/21 14:30 Carboxyhemoglobin 1.5 (0.5-1.5) 03/19/21 06:05 FiO2 100 % 03/18/21 14:30 FiO2 % 25.0 03/19/21 06:05 Sodium 140 mmol/L (137-145) 03/19/21 03:08 Potassium 4.0 mmol/L (3.6-5.0) 03/19/21 03:08 Chloride 105.0 mmol/L (98-107) 03/19/21 03:08 Carbon Dioxide 21 mmol/L (22-30) L 03/19/21 03:08 Anion Gap 18 mmol/L 03/19/21 03:08 BUN 49 mg/dL (9-20) H 03/19/21 03:08 Creatinine 5.1 mg/dL (0.8-1.3) H 03/19/21 03:08 Estimated GFR 13 ml/min 03/19/21 03:08 BUN/Creatinine Ratio 10 % 03/19/21 03:08 Glucose 239 mg/dL (75-100) H 03/19/21 03:08 POC Glucose 221 mg/dL (70-105) H 03/19/21 09:04 Lactic Acid 1.30 mmol/L (0.7-2.0) 03/19/21 03:08 Calcium 8.0 mg/dL (8.4-10.2) L 03/19/21 03:08 Phosphorus 1.90 mg/dL (2.5-4.5) L 03/19/21 03:08 Magnesium 1.90 mg/dL (1.7-2.3) 03/19/21 03:08 Total Bilirubin 0.20 mg/dL (0.1-1.2) 03/19/21 03:08 AST 27 units/L (5-40) 03/19/21 03:08 ALT 32 units/L (7-56) 03/19/21 03:08 Alkaline Phosphatase 154 units/L (35-129) H 03/19/21 03:08 Troponin T 0.047 ng/mL (0.00-0.029) H 03/16/21 17:15 Total Protein 5.1 g/dL (6.3-8.2) L 03/19/21 03:08 Albumin 2.6 g/dL (3.9-5) L 03/19/21 03:08 Albumin/Globulin Ratio 1.0 % 03/19/21 03:08 Triglycerides 40 mg/dL (2-149) 03/16/21 17:15 Cholesterol 77 mg/dL (50-199) 03/16/21 17:15 LDL Cholesterol Direct 17 mg/dL (50-130) L 03/16/21 17:15 HDL Cholesterol 54 mg/dL (40-59) 03/16/21 17:15 Cholesterol/HDL Ratio 1.42 % 03/16/21 17:15 Procalcitonin 5.08 ng/mL (<0.15) 03/18/21 14:40 TSH 3.850 mlU/mL (0.270-4.200) 03/16/21 18:14 Free T4 0.96 ng/dL (0.76-1.46) 03/18/21 14:40 Random Vancomycin 24.5 ug/mL (0-40.0) 03/19/21 03:08 Microbiology: Microbiology 03/18/21 14:27 Tracheal Aspirate Sputum Culture - Preliminary 03/18/21 14:30 Peripheral/Venous Blood Culture - Preliminary Culture in Progress 03/18/21 14:30 Peripheral/Venous Blood Culture - Preliminary Culture in Progress Dugan/IV: Voiding Method Incontinent Active Medications - Current Medications Current Medications: Generic Name Dose Route Start Last Admin Trade Name Freq PRN Reason Stop Dose Admin Acetaminophen 650 mg 03/16/21 18:54 Acetaminophen 325 Mg Tab PO Q4H PRN Pain MILD(1-3)/Fever >100.5/LOCKE Albuterol 2.5 mg 03/16/21 18:54 Albuterol 2.5 Mg/3 Ml Nebu IH Q4HRT PRN Shortness Of Breath Lipase/Protease/Amylase 1 each 03/19/21 10:34 Lipase 10,500/Protease 25,000/Amylase 43,750 (Units) Dr Gordon FEEDTUBE PRN PRN For Clogged Feeding Tube Atorvastatin Calcium 20 mg 03/16/21 22:00 03/18/21 22:20 Atorvastatin 20 Mg Tab PO Not Given QHS CRISTELA Dextrose 50 ml 03/18/21 20:11 Dextrose 50% In Water (25gm) 50 Ml Syringe IV Q30MIN PRN Hypoglycemia Protocol Docusate Sodium 100 mg 03/19/21 22:00 Docusate Sodium 100 Mg/10 Ml Oral Liqd FEEDTUBE BID CRISTELA Famotidine 10 mg 03/19/21 11:00 Famotidine 20 Mg/2 Ml Inj IV BID CRISTELA Fentanyl 50 mcg 03/18/21 12:54 Fentanyl 100 Mcg/2 Ml Inj IV Q10MIN PRN ANALGESIA Hydrocortisone Sodium Succinate 100 mg 03/18/21 15:00 03/19/21 06:48 Hydrocortisone Sod Succ 100 Mg/2 Ml Vial IV 100 mg Q8HR CRISTELA Administration Hydromorphone HCl 0.5 mg 03/16/21 18:54 Hydromorphone 1 Mg/1 Ml Inj IV Q23H PRN Pain , Severe (7-10) Hydroxyzine HCl 25 mg 03/16/21 18:57 Hydroxyzine Hcl 25 Mg Tab PO Q6HR PRN Itching Dopamine HCl 800 mg/ Dextrose 250 mls @ 3.113 mls/hr 03/17/21 14:00 03/19/21 09:00 IV 4 mcg/kg/min TITR CRISTELA 6.225 mls/hr Titration Protocol 2 MCG/KG/MIN Dextrose 1,000 mls @ 30 mls/hr 03/18/21 02:00 03/19/21 10:11 D10w IV 0 mls/hr DIRECT CRISTELA Infusion NORepinephrine/NS 8 MG-250 ML 8 mg in 250 mls @ 3.75 mls/hr 03/18/21 15:00 Norepinephrine/Ns 8 Mg-250 Ml (Double Conc) IV TITRATE [facility] Protocol 2 MCG/MIN Fentanyl Citrate 2,000 mcg in 100 mls @ 4.15 mls/hr 03/18/21 13:00 03/19/21 05:51 Fentanyl Drip Premix IV 2 mcg/kg/hr TITR CRISTELA 8.3 mls/hr Administration Protocol 1 MCG/KG/HR Cefepime HCl 1 gm in 100 mls @ 200 mls/hr 03/18/21 15:00 03/18/21 16:20 Cefepime/Ns 1 Gm/100 Ml IV 200 mls/hr Q24H CRISTELA Administration Protocol Sodium Phosphate 30 mmol/ 510 mls @ 125 mls/hr 03/19/21 09:15 03/19/21 10:36 Sodium Chloride IV 03/19/21 12:15 125 mls/hr ONCE@0915 CRISTELA Administration Sodium Chloride 100 mls @ 999 mls/hr 03/19/21 09:34 Nacl 0.9% IV LATANYA PRN Hypotension Latanoprost 1 drops 03/16/21 22:00 03/18/21 22:20 Latanoprost 0.005% Ophth Soln 2.5 Ml OD Not Given QHS [facility] Lorazepam 1 mg 03/16/21 18:57 Lorazepam 1 Mg Tab PO Q6H PRN Anxiety Midodrine 2.5 mg 03/19/21 09:00 03/19/21 10:12 Midodrine 2.5 Mg Tab PO Not Given Q8HR [facility] Miscellaneous Medication 1 drop 03/16/21 22:00 03/18/21 22:20 Dorzolamide Hcl/Timolol Maleat [Dorzolamide-Timolol Eye Drops] OD Not Given BID [facility] Olanzapine 5 mg 03/17/21 10:00 03/19/21 10:12 Olanzapine 5 Mg Tab PO Not Given QDAY [facility] Ondansetron HCl 4 mg 03/16/21 18:54 Ondansetron 4 Mg/2 Ml Inj IV Q8H PRN Nausea And Vomiting Oxycodone/Acetaminophen 1 tab 03/16/21 18:54 Oxycodone /Acetaminophen 5-325mg Tab PO Q16H PRN Pain, Moderate (4-6) Phenyleph/Shark Oil/Min Oil/Petrol 1 applic 03/17/21 10:00 03/19/21 10:35 Pe/Mo/Pet,Wh 10 Applic/28 Gm Tube MO Not Given QDAY CRISTELA Sevelamer Carbonate 1,600 mg 03/16/21 20:00 03/19/21 10:12 Sevelamer Carbonate 800 Mg Tab PO Not Given TID CRISTELA Simple Syrup 15 ml 03/19/21 10:34 Simple Syrup 15 Ml FEEDTUBE PRN PRN Hypoglycemia Simple Syrup 30 ml 03/19/21 10:34 Simple Syrup 15 Ml FEEDTUBE PRN PRN Hypoglycemia Sodium Bicarbonate 325 mg 03/19/21 10:34 Sodium Bicarbonate 325 Mg Tab FEEDTUBE PRN PRN For Clogged Feeding Tube Sodium Chloride 10 ml 03/16/21 22:00 03/19/21 10:35 Sodium Chloride 0.9% 10 Ml Flush Syringe IV 10 ml BID CRISTELA Administration Sodium Chloride 10 ml 03/16/21 18:54 Sodium Chloride 0.9% 10 Ml Flush Syringe IV PRN PRN LINE FLUSH Zinc Acetate/Diphenhydramine 1 applic 03/16/21 18:57 Diphenhydramine/Zinc Acet 2% Cream 28.4 Gm TP Q8H PRN Itching <PETE DWYER - Last Filed: 03/21/21 12:07> Assessment and Plan Assessment and plan: I saw and evaluated the patient. Discussed with the nurse practitioner and agree with their findings and plan as documented in this note. Hospitalist Physical - Constitutional Vitals: Temp Pulse Resp BP Pulse Ox 100.0 F H 72 0 L 46/27 100 03/20/21 16:00 03/20/21 18:01 03/20/21 19:11 03/20/21 19:11 03/20/21 16:10 HEART Score - HEART Score Troponin: Troponin T 0.047 ng/mL (0.00-0.029) H 03/16/21 17:15 Results - Labs CBC & Chem 7: 03/20/21 04:30 03/20/21 04:30 Labs: Laboratory Last Values WBC 17.9 K/mm3 (4.5-11.0) H 03/20/21 04:30 RBC 2.68 M/mm3 (3.65-5.03) L 03/20/21 04:30 Hgb 7.6 gm/dl (11.8-15.2) L 03/20/21 04:30 Hct 24.9 % (35.5-45.6) L 03/20/21 04:30 MCV 93 fl (84-94) 03/20/21 04:30 MCH 28 pg (28-32) 03/20/21 04:30 MCHC 31 % (32-34) L 03/20/21 04:30 RDW 21.3 % (13.2-15.2) H 03/20/21 04:30 Plt Count 119 K/mm3 (140-440) L 03/20/21 04:30 Lymph % (Auto) 6.5 % (13.4-35.0) L 03/17/21 10:11 Stokes % (Auto) 3.9 % (0.0-7.3) 03/17/21 10:11 Eos % (Auto) 1.9 % (0.0-4.3) 03/17/21 10:11 Baso % (Auto) 0.7 % (0.0-1.8) 03/17/21 10:11 Lymph # (Auto) 0.3 K/mm3 (1.2-5.4) L 03/17/21 10:11 Stokes # (Auto) 0.2 K/mm3 (0.0-0.8) 03/17/21 10:11 Eos # (Auto) 0.1 K/mm3 (0.0-0.4) 03/17/21 10:11 Baso # (Auto) 0.0 K/mm3 (0.0-0.1) 03/17/21 10:11 Add Manual Diff Complete 03/19/21 03:08 Total Counted 100 03/19/21 03:08 Seg Neutrophils % Traveling Storekeeper 03/19/21 03:08 Seg Neuts % (Manual) 98.0 % (40.0-70.0) H 03/19/21 03:08 Band Neutrophils % 0 % 03/19/21 03:08 Lymphocytes % (Manual) 1.0 % (13.4-35.0) L 03/19/21 03:08 Reactive Lymphs % (Man) 0 % 03/19/21 03:08 Monocytes % (Manual) 1.0 % (0.0-7.3) 03/19/21 03:08 Eosinophils % (Manual) 0 % (0.0-4.3) 03/19/21 03:08 Basophils % (Manual) 0 % (0.0-1.8) 03/19/21 03:08 Metamyelocytes % 0 % 03/19/21 03:08 Myelocytes % 0 % 03/19/21 03:08 Promyelocytes % 0 % 03/19/21 03:08 Blast Cells % 0 % 03/19/21 03:08 Nucleated RBC % 1.0 % (0.0-0.9) H 03/19/21 03:08 Seg Neutrophils # 4.4 K/mm3 (1.8-7.7) 03/17/21 10:11 Seg Neutrophils # Man 10.6 K/mm3 (1.8-7.7) H 03/19/21 03:08 Band Neutrophils # 0.0 K/mm3 03/19/21 03:08 Lymphocytes # (Manual) 0.1 K/mm3 (1.2-5.4) L 03/19/21 03:08 Abs React Lymphs (Man) 0.0 K/mm3 03/19/21 03:08 Monocytes # (Manual) 0.1 K/mm3 (0.0-0.8) 03/19/21 03:08 Eosinophils # (Manual) 0.0 K/mm3 (0.0-0.4) 03/19/21 03:08 Basophils # (Manual) 0.0 K/mm3 (0.0-0.1) 03/19/21 03:08 Metamyelocytes # 0.0 K/mm3 03/19/21 03:08 Myelocytes # 0.0 K/mm3 03/19/21 03:08 Promyelocytes # 0.0 K/mm3 03/19/21 03:08 Blast Cells # 0.0 K/mm3 03/19/21 03:08 WBC Morphology Not Reportable 03/19/21 03:08 Hypersegmented Neuts Not Reportable 03/19/21 03:08 Hyposegmented Neuts Not Reportable 03/19/21 03:08 Hypogranular Neuts Not Reportable 03/19/21 03:08 Smudge Cells Not Reportable 03/19/21 03:08 Toxic Granulation Not Reportable 03/19/21 03:08 Toxic Vacuolation Not Reportable 03/19/21 03:08 Dohle Bodies Not Reportable 03/19/21 03:08 Pelger-Huet Anomaly Not Reportable 03/19/21 03:08 Amari Rods Not Reportable 03/19/21 03:08 Platelet Estimate Consistent w auto 03/19/21 03:08 Clumped Platelets Not Reportable 03/19/21 03:08 Plt Clumps, EDTA Not Reportable 03/19/21 03:08 Large Platelets Not Reportable 03/19/21 03:08 Giant Platelets Not Reportable 03/19/21 03:08 Platelet Satelliting Not Reportable 03/19/21 03:08 Plt Morphology Comment Not Reportable 03/19/21 03:08 RBC Morphology Not Reportable 03/19/21 03:08 Dimorphic RBCs Not Reportable 03/19/21 03:08 Polychromasia Not Reportable 03/19/21 03:08 Hypochromasia Not Reportable 03/19/21 03:08 Poikilocytosis Not Reportable 03/19/21 03:08 Anisocytosis 1+ 03/19/21 03:08 Microcytosis Not Reportable 03/19/21 03:08 Macrocytosis Not Reportable 03/19/21 03:08 Spherocytes Not Reportable 03/19/21 03:08 Pappenheimer Bodies Not Reportable 03/19/21 03:08 Sickle Cells Not Reportable 03/19/21 03:08 Target Cells Not Reportable 03/19/21 03:08 Tear Drop Cells Not Reportable 03/19/21 03:08 Ovalocytes Not Reportable 03/19/21 03:08 Helmet Cells Not Reportable 03/19/21 03:08 [place] Bodies Not Reportable 03/19/21 03:08 [place] Rings Not Reportable 03/19/21 03:08 [place]ienne Cells Not Reportable 03/19/21 03:08 Bite Cells Not Reportable 03/19/21 03:08 Crenated Cell Not Reportable 03/19/21 03:08 Elliptocytes Not Reportable 03/19/21 03:08 Acanthocytes (Spur) Not Reportable 03/19/21 03:08 Rouleaux Not Reportable 03/19/21 03:08 Hemoglobin C Crystals Not Reportable 03/19/21 03:08 Schistocytes Not Reportable 03/19/21 03:08 Malaria parasites Not Reportable 03/19/21 03:08 Gamal Bodies Not Reportable 03/19/21 03:08 Hem Pathologist Commnt No 03/19/21 03:08 PT 14.5 Sec. (12.2-14.9) 03/16/21 17:15 INR 1.02 (0.87-1.13) 03/16/21 17:15 APTT 47.7 Sec. (24.2-36.6) H 03/16/21 17:15 ABG pH 7.238 pH Units (7.350-7.450) L 03/20/21 05:58 POC ABG pCO2 28.9 mmHg (32.0-48.0) L 03/19/21 06:05 ABG pCO2 34.8 mm Hg 03/20/21 05:58 POC ABG pO2 117.8 mmHg (83-108) H 03/19/21 06:05 ABG pO2 381.8 mm Hg (80.0-90.0) H 03/20/21 05:58 POC ABG HCO3 22.1 03/19/21 06:05 ABG HCO3 14.5 mmol/L (20.0-26.0) L 03/20/21 05:58 ABG O2 Saturation 99.6 % (95.0-99.0) H 03/20/21 05:58 ABG O2 Content 16.6 (0.0-44) 03/20/21 05:58 POC ABG Base Excess -0.7 03/19/21 06:05 ABG Base Excess -11.9 mmol/L (-2.0-3.0) L 03/20/21 05:58 ABG Hemoglobin 11.3 gm/dl (14.0-18.0) L 03/20/21 05:58 ABG Oxyhemoglobin 96.5 (94-98) 03/19/21 06:05 ABG Carboxyhemoglobin 1.2 % (0.0-5.0) 03/20/21 05:58 ABG Methemoglobin 0.6 % (0.0-1.5) 03/20/21 05:58 Oxyhemoglobin 97.7 % (95.0-99.0) 03/20/21 05:58 Carboxyhemoglobin 1.5 (0.5-1.5) 03/19/21 06:05 FiO2 100 % 03/20/21 05:58 FiO2 % 25.0 03/19/21 06:05 Sodium 142 mmol/L (137-145) 03/20/21 04:30 Potassium 4.5 mmol/L (3.6-5.0) 03/20/21 04:30 Chloride 103.0 mmol/L (98-107) 03/20/21 04:30 Carbon Dioxide 13 mmol/L (22-30) L D 03/20/21 04:30 Anion Gap 31 mmol/L 03/20/21 04:30 BUN 59 mg/dL (9-20) H 03/20/21 04:30 Creatinine 5.6 mg/dL (0.8-1.3) H 03/20/21 04:30 Estimated GFR 12 ml/min 03/20/21 04:30 BUN/Creatinine Ratio 11 % 03/20/21 04:30 Glucose 318 mg/dL (75-100) H 03/20/21 04:30 POC Glucose 151 mg/dL (70-105) H 03/20/21 16:57 Lactic Acid 1.30 mmol/L (0.7-2.0) 03/19/21 03:08 Calcium 8.0 mg/dL (8.4-10.2) L 03/20/21 04:30 Phosphorus 6.40 mg/dL (2.5-4.5) H D 03/20/21 04:30 Magnesium 2.00 mg/dL (1.7-2.3) 03/20/21 04:30 Total Bilirubin 0.20 mg/dL (0.1-1.2) 03/19/21 03:08 AST 27 units/L (5-40) 03/19/21 03:08 ALT 32 units/L (7-56) 03/19/21 03:08 Alkaline Phosphatase 154 units/L (35-129) H 03/19/21 03:08 Troponin T 0.047 ng/mL (0.00-0.029) H 03/16/21 17:15 Total Protein 5.1 g/dL (6.3-8.2) L 03/19/21 03:08 Albumin 2.6 g/dL (3.9-5) L 03/19/21 03:08 Albumin/Globulin Ratio 1.0 % 03/19/21 03:08 Triglycerides 40 mg/dL (2-149) 03/16/21 17:15 Cholesterol 77 mg/dL (50-199) 03/16/21 17:15 LDL Cholesterol Direct 17 mg/dL (50-130) L 03/16/21 17:15 HDL Cholesterol 54 mg/dL (40-59) 03/16/21 17:15 Cholesterol/HDL Ratio 1.42 % 03/16/21 17:15 Procalcitonin 5.08 ng/mL (<0.15) 03/18/21 14:40 TSH 0.839 mlU/mL (0.270-4.200) 03/19/21 Unknown Free T4 0.96 ng/dL (0.76-1.46) 03/18/21 14:40 Total Cortisol 18.3 mcg/dL () 03/16/21 22:20 Random Vancomycin 24.5 ug/mL (0-40.0) 03/19/21 03:08 Coronavirus (PCR) Positive (Negative) A 03/19/21 08:30 Hepatitis A IgM Ab Non-reactive (NonReactive) 03/19/21 Unknown Hep Bs Antigen Non-reactive (Negative) 03/19/21 Unknown Hep B Core IgM Ab Non-reactive (NonReactive) 03/19/21 Unknown Hepatitis C Antibody Non-reactive (NonReactive) 03/19/21 Unknown Microbiology: Microbiology 03/18/21 14:27 Tracheal Aspirate Sputum Culture - Final Methicillin Resist S. Aureus 03/18/21 14:30 Peripheral/Venous Blood Culture - Preliminary NO GROWTH AFTER 48 HOURS 03/18/21 14:30 Peripheral/Venous Blood Culture - Preliminary NO GROWTH AFTER 48 HOURS [place]/IV: Voiding Method Incontinent Nutrition/Malnutrition Assess - Dietary Evaluation Nutrition/Malnutrition Findings: Nutrition Notes Start: 03/19/21 11:41 Freq: Status: Discharge Protocol: Document 03/19/21 11:45 CAIT (Rec: 03/19/21 12:08 CAIT [id number]) Nutrition Notes Need for Assessment generated from: MD Order Initial or Follow up Assessment Other Pertinent Diagnosis Pneumonia, Bradycardia, ESRD+ HD, V Dementia, Hypotension, CVA, AMS. Current Diet TF-Nepro w/CARBSTEADY @ 36 ml/ hr (since D 03/19). Labs/Tests 03/19: CO2 21, BUN 49, Crea 5. 1, Glu 239, Ca 8.0, Phos 1.9. Pertinent Medications 03/19: Nutritionally unremarkable. Height 5 ft 11 in Weight 78.8 kg [place] Body Weight (kg) 78.18 BMI 24.2 Intake Prior to Admission Good Weight change and time frame Pt states not having loss body weight recently. Weight Status Appropriate Subjective/Other Information RD consult for TF write/manage and skin risk assessment. Pt's Ht&Wt were taken from prior visit on 02/26/2021, due to wrong data available at the time (63ft/86Kg). Pt is on mechanical ventilation. Pt shows some redness, dryness and flakyness, but no signs of concern for skin risk, according to Physical Assessment, History notes. Percent of energy/protein needs met: Prescribed Nepro w/CARBSTEADY @ 36 ml/hr provides for energy /protein needs (2,000 Kcal/82 g) during LOS, 100% Kcal; 90% AA. Burn Absent Trauma Absent GI Symptoms None Food Allergy No Skin Integrity/Comment Redness, dryness, flakyness Current % PO Other Minimum of two criteria No #1 Nutrition Diagnosis Inadequate oral intake Etiology Pt on mechanical ventilation As Evidenced by Signs and Symptoms Pt is on NPO. Is patient on ventilator? Yes Is Patient Ambulatory and/or Out of Bed No REE-([facility]-confined to bed) 1813.176 Kcal/Kg value to use for calculation 20 Approximate Energy Requirements Using 1576 kcal/Kg Calculation Used for Recommendations Kcal/kg Additional Notes Protein: 1-1.2 g/Kg; 79-95 g/ day. Fluids: 1 ml/Kcal, or as per MD. Nutrition Intervention Nutrition Support: Start Nepro w/CARBSTEADY @ 36 ml/hr. Flush: 150 ml water Q 4 hr, or as per MD. Kcal 1,576 Protein (gm) 71 Carbohydrates (gm) 141 Fat (gm) 84 Fluid (mL) 637 Fiber (gm) 11 % RDI: 100% Kcal; 90% AA. Goal #1 Provide at least 75% of energy /protein needs through Enteral Feeding during LOS. Follow-Up By: 03/23/21 Additional Comments Continue monitoring TF tolerance and BM.
--- NOTE | 2021-03-19 11:28 | XRay Report ---
ABDOMEN 1 VIEW(S) 03/19/2021 10:20 AM INDICATION / CLINICAL INFORMATION: STAT. COMPARISON: None available. FINDINGS: The tip of an esophagogastric tube projects over the body of the stomach in expected position. Signer Name: Macario Hurst MD Signed: 03/19/2021 11:24 AM Workstation Name: [id number]
[2021-03-19] MEDS: FAMOTIDINE 20 MG/2 ML INJ IV SCH ×2 (11:43→22:01)
--- NOTE | 2021-03-19 12:11 | Progress Note ---
Assessment and Plan Patient is a 85-year-old male with a past medical history of end-stage renal disease on hemodialysis, hypertension, history of CVA, vascular dementia, cerebral atherosclerosis, and legally blind who was brought to the ED due to bradycardia during hemodialysis session AMS PNA Bradycardia Hypotension ESRD on HD-nephrology Anemia H/O CVA Vascular dementia Echo 02/17/2021-EF 55 to 60%, moderate LVH, left ventricular diastolic function is normal, right ventricle systolic function is normal. Left and right atrium are normal in size. Plan: Patient heart rate trending in the 60s. No acute indication for pacemaker Wean dopamine drip as tolerated No beta-blockers due to bradycardia No anticoagulation or antiplatelets due to anemia No NADIA/ARB due to hypotension and elevated creatinine. Will defer to nephrology for initiation of NADIA or ARB Patient seen in conjunction with Dr. Alonzo who agrees with this plan of care 30 minutes of critical care time spent on coordination of care for - Patient Problems (1) Bradycardia Current Visit: Yes Status: Acute (2) End stage renal disease Current Visit: Yes Status: Acute (3) Hypothermia Current Visit: Yes Status: Acute (4) Junctional rhythm Current Visit: Yes Status: Acute (5) Obesity hypoventilation syndrome Current Visit: Yes Status: Acute (6) Pneumonia Current Visit: Yes Status: Acute (7) Anemia Current Visit: No Status: Acute (8) Metabolic encephalopathy Current Visit: No Status: Acute Subjective Date of service: 03/19/21 Principal diagnosis: Bilateral pneumonia, CHF exacerbation Interval history: Patient resting in bed no acute distress Patient has switches between junctional rhythm and A. fib rate trending 60s on monitor Objective Vital Signs Temp Pulse Resp BP Pulse Ox 03/19/21 11:16 24 100 03/19/21 11:01 74 131/35 100 03/19/21 10:45 65 67/47 98 03/19/21 10:31 69 24 82/39 100 03/19/21 10:15 70 24 98/42 100 03/19/21 10:00 67 24 108/42 100 03/19/21 09:45 65 24 111/46 100 03/19/21 09:30 66 24 112/44 100 03/19/21 09:15 66 24 113/41 100 03/19/21 09:00 68 24 127/48 100 03/19/21 08:59 96.4 F L 03/19/21 08:55 24 100 03/19/21 08:45 69 24 127/52 100 03/19/21 08:30 70 24 131/59 100 03/19/21 08:15 64 24 140/63 100 03/19/21 08:00 95.9 F L 75 25 H 140/63 100 03/19/21 07:45 77 24 132/59 98 03/19/21 07:30 69 24 145/52 100 03/19/21 07:15 68 24 136/51 100 03/19/21 07:00 67 24 130/52 100 03/19/21 06:45 65 24 142/49 100 03/19/21 06:43 66 03/19/21 06:31 66 24 153/49 100 03/19/21 06:15 72 24 152/56 100 03/19/21 06:01 24 100 03/19/21 06:00 72 24 151/55 100 03/19/21 05:56 93.7 F L 03/19/21 05:45 76 24 167/53 100 03/19/21 05:30 76 24 146/59 100 03/19/21 05:15 79 22 149/70 100 03/19/21 05:11 89 24 100 03/19/21 05:00 83 74/27 100 03/19/21 04:15 64 24 145/49 100 03/19/21 04:01 61 24 174/48 100 03/19/21 03:31 59 L 24 169/56 100 03/19/21 03:01 64 24 162/53 100 03/19/21 02:31 64 24 163/49 100 03/19/21 02:01 64 24 146/55 100 03/19/21 01:31 71 23 108/46 100 03/19/21 01:01 63 24 158/52 100 03/19/21 01:00 63 100 03/19/21 00:31 63 24 158/54 100 03/19/21 00:01 65 24 156/53 100 03/18/21 23:31 60 24 155/52 100 03/18/21 23:01 64 24 147/43 100 03/18/21 22:31 65 24 154/43 100 03/18/21 22:01 66 24 142/51 100 03/18/21 21:31 65 24 149/50 100 03/18/21 21:01 66 24 145/52 100 03/18/21 20:40 65 150/49 100 03/18/21 20:31 65 24 150/50 100 03/18/21 20:19 18 100 03/18/21 20:01 65 24 133/52 100 03/18/21 19:51 64 21 136/51 100 03/18/21 19:31 64 24 136/48 03/18/21 19:01 64 24 128/56 03/18/21 18:31 64 24 125/39 03/18/21 17:31 63 24 127/44 03/18/21 17:01 63 24 108/39 03/18/21 16:39 61 126/48 03/18/21 16:30 63 24 120/42 03/18/21 16:00 62 24 126/48 03/18/21 15:30 58 L 24 125/42 03/18/21 15:00 60 24 129/47 03/18/21 14:12 132/51 99 03/18/21 13:30 68 24 152/45 03/18/21 13:18 70 100 03/18/21 12:30 47 L 5 L 84/36 87 - Physical Examination General: Other (Altered mental status) HEENT: Positive: Mucus Membranes Dry Neck: Positive: trachea midline Cardiac: Positive: Regular Rate Lungs: Positive: Ventilated Respirations Neuro: Positive: Other (Altered mental) Abdomen: Positive: Soft Skin: Positive: Cool Extremities: Present: upper extr. pulses. Absent: edema - Labs and Meds Cardiac Enzymes 03/19/21 Range/Units 03:08 AST 27 (5-40) units/L CBC 03/19/21 Range/Units 03:08 WBC 10.8 (4.5-11.0) K/mm3 RBC 2.85 L (3.65-5.03) M/mm3 Hgb 8.3 L (11.8-15.2) gm/dl Hct 25.4 L (35.5-45.6) % Plt Count 75 L (140-440) K/mm3 Comprehensive Metabolic Panel 03/19/21 Range/Units 03:08 Sodium 140 (137-145) mmol/L Potassium 4.0 (3.6-5.0) mmol/L Chloride 105.0 (98-107) mmol/L Carbon Dioxide 21 L (22-30) mmol/L BUN 49 H (9-20) mg/dL Creatinine 5.1 H (0.8-1.3) mg/dL Glucose 239 H (75-100) mg/dL Calcium 8.0 L (8.4-10.2) mg/dL AST 27 (5-40) units/L ALT 32 (7-56) units/L Alkaline Phosphatase 154 H (35-129) units/L Total Protein 5.1 L (6.3-8.2) g/dL Albumin 2.6 L (3.9-5) g/dL - Imaging and Cardiology Echo: report reviewed - Telemetry EKG Rhythm: Junctional - EKG Supraventricular dysrhythmia: junctional rhythm
[2021-03-19 13:50] LABS: Hepatitis B Surface Antigen Non-Reactive (Negative); Hepatitis C Virus Antibody Non-Reactive (NonReactive)
--- NOTE | 2021-03-19 15:56 | XRay Report ---
CHEST 1 VIEW 03/19/2021 2:48 PM INDICATION / CLINICAL INFORMATION: dyspnea. COMPARISON: 03/19/2021 FINDINGS: SUPPORT DEVICES: Port-A-Cath appears unchanged. Nasogastric tube descends into the stomach. Endotrach eal tube appears unchanged. HEART / MEDIASTINUM: Unchanged LUNGS / PLEURA: There is mild worsening airspace opacity in the lower lung zones. No pneumothorax. ADDITIONAL FINDINGS: No significant additional findings. IMPRESSION: 1. Interval worsening. Signer Name: Jorge Luis Davis MD Signed: 03/19/2021 3:52 PM Workstation Name: [id number]
[2021-03-19] MEDS: EPINEPHrine 1 MG/1 ML 8 MG in SODIUM CHLORIDE 0.9% 250ML 242 ML IV SCH (16:04)
[2021-03-19] MEDS: NORepinephrine/NS 8 MG-250 ML 8 MG/250 ML INFUS..BTL IV SCH ×2 (16:05→19:56)
[2021-03-19] MEDS: VASOPRESSIN 20 UNIT in SODIUM CHLORIDE 0.9% 100 ML IV SCH (16:06)
[2021-03-19] MEDS: CEFEPIME/NS 1 GM/100 ML 1 GM/100 ML BAG IV SCH (16:11)
--- NOTE | 2021-03-19 16:39 | Post Operative Note ---
Pre-op diagnosis: septic shock Post-op diagnosis: same Procedure: CONSENT: Consent was obtained from _ prior to the procedure. Indications, risks, and benefits were explained at length. The procedure was performed emergently and the permission was implied because of the emergent nature. PROCEDURE SUMMARY: A time out was performed. My hands were washed immediately prior to the procedure. I wore a surgical cap, mask with protective eyewear, full gown and sterile gloves throughout the procedure. The patient was placed in Trendelenburg position. RIGHT GROIN region was prepped using chlorhexidine scrub and draped in sterile fashion using a full drape and sterile probe cover and sterile gel employed. The medial and lateral heads of the sternocleidomastoid muscle were identified as was the carotid pulse. The rt femoral vein was identified using the ultrasound. Anesthesia was achieved over the vein using 1% lidocaine. Using real-time out of plane guidance, the introducer needle was inserted into the rt femoral vein under direct ultrasound visualization. Venous blood was withdrawn. The syringe was removed and a guidewire was advanced into the introducer needle. The guidewire was visualized in the rt femoral vein by ultrasound. A small incision was made at the skin surface with a scalpel and the introducer needle was exchanged for a dilator over the guidewire. After appropriate dilation was obtained, the dilator was exchanged over the wire for a 7F central venous catheter. The wire was removed and the catheter was sutured in place at 23 cm. A sterile sorbaview shield was placed over the catheter at the insertion site. The patient tolerated the procedure without any hemodynamic compromise. At time of procedure completion, all ports aspirated and flushed properly. Post-procedure chest x-ray is pending at this time. Estimated blood loss is < 5cc. +60 min CCT
--- NOTE | 2021-03-19 17:17 | Event Note ---
Date: 03/19/21 Initial Rhythm: PEA Description of Code: I responded to overhead code blue page x 2. CPR was initiated and conducted as per ACLS protocol. Total Duration of CPR: 30 mins Drugs: - Epinephrine x 2 - Sodium bicarb x 1 - 4 pressors initiated. Dopamine gtt, levophed gtt, norepinephrine gtt Intubated previously Lines Placed: Right femoral line in place previously Result of Code: ROSC x2 , subsequent rhythm sinus tachycardia Next of kin notified: Yes, discussed patient case with daughters at bedside. Explained patient poor prognosis and likelihood of imminent . They verbalized understanding and would still like aggressive management. +30 min CCT
[2021-03-19] MEDS ORDERED: SODIUM BICARB 8.4% 50 MEQ/50 ML SYRINGE IV ONE (17:20)
[2021-03-19] MEDS ORDERED: CALCIUM CHLORIDE 1,000 MG/10 ML SYRINGE IV ONE (17:20)
[2021-03-19] MEDS ORDERED: EPINEPHrine 1 MG/10 ML SYRINGE ONE (17:20)
[2021-03-19] MEDS: DEXTROSE 10% IN WATER 1,000 ML IV SCH (19:57)
--- NOTE | 2021-03-19 20:06 | Event Note ---
<JOSEFINA DOBSON - Last Filed: 03/19/21 20:06> Date: 03/19/21 A CODE Zhen was called, responded to the code. Patient jenny down into the 40s, than lost pulse, PEA arrest. CPR was initiated and code was conducted according to ACLS protocol. ROSC was achieved after 2 rounds of EPI and 1amp of Bcarb. ST noted on the monitor. Patient remains on 4 pressors- dopamine, Levophed, EPI, and Vaso. Patient's daughters present in the wall. Extensive discussion on patient grave prognosis and of the likelihood of patient coding again. All questions and concerns addressed at this time. Family verbalized understanding of info given, however, would like to keep patient as a FULL code for now. They voiced that "they would like some time to discuss it among themselves before making a decision." +20 min CCT <PETE DWYER - Last Filed: 03/21/21 12:04> I saw and evaluated the patient. Discussed with the nurse practitioner and agree with their findings and plan as documented in this note.
[2021-03-19] MEDS: DOCUSATE SODIUM 100 MG/10 ML ORAL LIQD FEEDTUBE SCH (22:00)
[2021-03-20] MEDS: NORepinephrine/NS 8 MG-250 ML 8 MG/250 ML INFUS..BTL IV SCH ×2 (01:02→09:27)
[2021-03-20] MEDS: VASOPRESSIN 20 UNIT in SODIUM CHLORIDE 0.9% 100 ML IV SCH ×2 (01:57→12:24)
[2021-03-20] MEDS: LATANOPROST 0.005% OPHTH SOLN 2.5 ML OD SCH (03:31)
[2021-03-20 05:22] LABS: Hematocrit 24.9 % (35.5-45.6); Hemoglobin 7.6 gm/dl (11.8-15.2); Mean Corpuscular HGB Conc 31 % (32-34); Mean Corpuscular Volume 93 fl (84-94); Platelet Count 119 K/mm3 (140-440); Red Blood Count 2.68 M/mm3 (3.65-5.03)
[2021-03-20 05:30] LABS: Red Cell Distribution Width 21.3 % (13.2-15.2)
[2021-03-20] MEDS: EPINEPHrine 1 MG/1 ML 8 MG in SODIUM CHLORIDE 0.9% 250ML 242 ML IV SCH (05:48)
[2021-03-20] MEDS: HYDROCORTISONE SOD SUCC 100 MG/2 ML VIAL IV SCH ×2 (05:48→13:48)
[2021-03-20 06:21] LABS: ABG Base Excess -11.9 mmol/L (-2.0-3.0); ABG HCO3 14.5 mmol/L (20.0-26.0); ABG Methemoglobin 0.6 % (0.0-1.5); ABG Oxygen Saturation 99.6 % (95.0-99.0); ABG PCO2 34.8 mm Hg; ABG PH 7.238 pH Units (7.350-7.450)
[2021-03-20 06:22] LABS: ABG PO2 381.8 mm Hg (80.0-90.0)
[2021-03-20] MEDS: MIDODRINE 2.5 MG TAB PO SCH ×2 (08:30→13:28)
[2021-03-20] MEDS: SEVELAMER CARBONATE 800 MG TAB PO SCH ×2 (08:30→13:28)
[2021-03-20] MEDS: PE/MO/PET,WH 10 APPLIC/28 GM TUBE PR SCH (09:02)
[2021-03-20] MEDS: DOCUSATE SODIUM 100 MG/10 ML ORAL LIQD FEEDTUBE SCH (09:02)
[2021-03-20] MEDS: FAMOTIDINE 20 MG/2 ML INJ IV SCH (09:26)
[2021-03-20] MEDS ORDERED: SODIUM BICARB 8.4% 50 MEQ/50 ML SYRINGE IV SCH (09:30)
--- NOTE | 2021-03-20 09:58 | Progress Note ---
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 Upon exit from room, code blue called. Patient is not stable for hemodialysis. * Vent management per pulm * Pressors prn to maintain MAP>65 * Cardiology following * Transfuse pRBC prn * Dose medications for renal function * Avoid potential nephrotoxins * Subjective Date of service: 03/20/21 Principal diagnosis: Bilateral pneumonia, CHF exacerbation Interval history: Chart, vitals, events noted. Objective - Vital Signs Vital signs: Vital Signs - 12hr 03/19/21 03/19/21 03/19/21 22:01 22:15 22:31 Temperature Pulse Rate 148 H 148 H 173 H Pulse Rate [ From Monitor] Respiratory 21 16 17 Rate Blood Pressure 175/79 151/86 145/86 O2 Sat by Pulse 81 L Oximetry 03/19/21 03/19/21 03/19/21 22:45 23:00 23:15 Temperature Pulse Rate 162 H 141 H 156 H Pulse Rate [ From Monitor] Respiratory 21 21 20 Rate Blood Pressure 201/72 195/79 186/69 O2 Sat by Pulse 54 L 54 L 58 L Oximetry 03/19/21 03/19/21 03/19/21 23:31 23:35 23:45 Temperature 98.6 F Pulse Rate 162 H 140 H Pulse Rate [ From Monitor] Respiratory 21 21 Rate Blood Pressure 210/74 208/76 O2 Sat by Pulse Oximetry 03/20/21 03/20/21 03/20/21 00:00 00:01 00:07 Temperature Pulse Rate 175 H 160 H 157 H Pulse Rate [ 170 H From Monitor] Respiratory 24 19 25 H Rate Blood Pressure 153/87 198/62 O2 Sat by Pulse 91 Oximetry 03/20/21 03/20/21 03/20/21 00:15 00:31 00:41 Temperature Pulse Rate 142 H 165 H 147 H Pulse Rate [ From Monitor] Respiratory 21 18 22 Rate Blood Pressure 172/70 186/68 195/58 O2 Sat by Pulse Oximetry 03/20/21 03/20/21 03/20/21 00:51 01:01 01:11 Temperature Pulse Rate 134 H 171 H 160 H Pulse Rate [ From Monitor] Respiratory 21 22 19 Rate Blood Pressure 174/43 197/76 131/80 O2 Sat by Pulse Oximetry 03/20/21 03/20/21 03/20/21 01:21 01:31 01:41 Temperature Pulse Rate 157 H 158 H 163 H Pulse Rate [ From Monitor] Respiratory 25 H 24 25 H Rate Blood Pressure 222/77 204/54 218/79 O2 Sat by Pulse Oximetry 03/20/21 03/20/21 03/20/21 01:51 02:01 02:11 Temperature Pulse Rate 162 H 166 H 152 H Pulse Rate [ From Monitor] Respiratory 19 26 H 25 H Rate Blood Pressure 174/56 208/76 184/60 O2 Sat by Pulse Oximetry 03/20/21 03/20/21 03/20/21 02:21 02:31 02:40 Temperature Pulse Rate 151 H 156 H 131 H Pulse Rate [ From Monitor] Respiratory 25 H 22 21 Rate Blood Pressure 180/67 165/60 149/68 O2 Sat by Pulse Oximetry 03/20/21 03/20/21 03/20/21 02:50 03:01 03:11 Temperature Pulse Rate 162 H 144 H 130 H Pulse Rate [ From Monitor] Respiratory 22 21 25 H Rate Blood Pressure 147/92 143/62 197/59 O2 Sat by Pulse Oximetry 03/20/21 03/20/21 03/20/21 03:21 03:31 03:41 Temperature Pulse Rate 170 H 172 H 132 H Pulse Rate [ From Monitor] Respiratory 21 26 H 22 Rate Blood Pressure 169/77 164/77 153/69 O2 Sat by Pulse Oximetry 03/20/21 03/20/21 03/20/21 03:44 03:51 04:00 Temperature 98.8 F Pulse Rate 164 H 174 H Pulse Rate [ 170 H From Monitor] Respiratory 25 H 24 Rate Blood Pressure 174/67 O2 Sat by Pulse 91 Oximetry 03/20/21 03/20/21 03/20/21 04:01 04:11 04:21 Temperature Pulse Rate 135 H 150 H 155 H Pulse Rate [ From Monitor] Respiratory 22 22 26 H Rate Blood Pressure 200/71 179/60 201/79 O2 Sat by Pulse Oximetry 03/20/21 03/20/21 03/20/21 04:31 04:41 04:51 Temperature Pulse Rate 158 H 168 H 171 H Pulse Rate [ From Monitor] Respiratory 24 25 H 27 H Rate Blood Pressure 157/72 189/69 180/59 O2 Sat by Pulse 48 L 39 L Oximetry 03/20/21 03/20/21 03/20/21 05:00 05:01 05:11 Temperature Pulse Rate 172 H 170 H 172 H Pulse Rate [ From Monitor] Respiratory 23 26 H Rate Blood Pressure 158/77 154/67 158/77 O2 Sat by Pulse 99 38 L 98 Oximetry 03/20/21 03/20/21 03/20/21 05:21 05:30 05:41 Temperature Pulse Rate 162 H 155 H 173 H Pulse Rate [ From Monitor] Respiratory 28 H 28 H 24 Rate Blood Pressure 138/74 130/64 152/76 O2 Sat by Pulse 96 100 97 Oximetry 03/20/21 03/20/21 03/20/21 05:51 06:00 06:11 Temperature Pulse Rate 175 H 145 H 132 H Pulse Rate [ From Monitor] Respiratory 26 H 20 23 Rate Blood Pressure 149/69 174/63 143/68 O2 Sat by Pulse 89 93 89 Oximetry 03/20/21 03/20/21 03/20/21 06:20 06:31 06:40 Temperature Pulse Rate 167 H 170 H 149 H Pulse Rate [ From Monitor] Respiratory 27 H 27 H 28 H Rate Blood Pressure 153/55 150/64 141/52 O2 Sat by Pulse 84 Oximetry 03/20/21 03/20/21 03/20/21 06:50 07:00 07:10 Temperature Pulse Rate 133 H 119 H 119 H Pulse Rate [ From Monitor] Respiratory 27 H 28 H 23 Rate Blood Pressure 162/39 175/57 180/66 O2 Sat by Pulse 93 63 L Oximetry 03/20/21 03/20/21 03/20/21 07:20 07:30 07:40 Temperature Pulse Rate 116 H 119 H 118 H Pulse Rate [ From Monitor] Respiratory 26 H 29 H 27 H Rate Blood Pressure 177/69 189/77 182/66 O2 Sat by Pulse 98 100 Oximetry 03/20/21 03/20/21 03/20/21 07:48 07:50 08:00 Temperature Pulse Rate 119 H 119 H 118 H Pulse Rate [ 119 H From Monitor] Respiratory 26 H 22 Rate Blood Pressure 190/69 195/68 O2 Sat by Pulse 43 L 90 Oximetry 03/20/21 03/20/21 03/20/21 08:10 08:20 08:28 Temperature 99.7 F H Pulse Rate 121 H 119 H Pulse Rate [ From Monitor] Respiratory 28 H 25 H Rate Blood Pressure 191/68 184/61 O2 Sat by Pulse 95 96 Oximetry 03/20/21 03/20/21 03/20/21 08:30 08:40 08:50 Temperature Pulse Rate 118 H 117 H 117 H Pulse Rate [ From Monitor] Respiratory 16 21 26 H Rate Blood Pressure 196/64 197/69 194/67 O2 Sat by Pulse 55 L 93 91 Oximetry 03/20/21 03/20/21 09:00 09:08 Temperature Pulse Rate 117 H 114 H Pulse Rate [ From Monitor] Respiratory 26 H Rate Blood Pressure 194/62 199/63 O2 Sat by Pulse 79 L 95 Oximetry - General Appearance General appearance: intubated EENT: ATNC, other (ETT in place) Respiratory: Present: Other (coarse) Cardiology: bradycardia - Lab 03/20/21 04:30 03/20/21 04:30 Most recent lab results ABG pH 7.238 pH Units (7.350-7.450) L 03/20/21 05:58 ABG pCO2 34.8 mm Hg 03/20/21 05:58 ABG pO2 381.8 mm Hg (80.0-90.0) H 03/20/21 05:58 ABG HCO3 14.5 mmol/L (20.0-26.0) L 03/20/21 05:58 ABG O2 Saturation 99.6 % (95.0-99.0) H 03/20/21 05:58 Calcium 8.0 mg/dL (8.4-10.2) L 03/20/21 04:30 Phosphorus 6.40 mg/dL (2.5-4.5) H D 03/20/21 04:30 Magnesium 2.00 mg/dL (1.7-2.3) 03/20/21 04:30 Medications & Allergies - Medications Allergies/Adverse Reactions: Allergies No Known Allergies Allergy (Verified 12/11/20 16:04) Home Medications: Home Medications Medication Instructions Recorded Confirmed Last Taken Type AtorvaSTATin [Lipitor] 20 mg PO QHS 01/21/21 02/17/21 01/19/21 21:00 History Lispro Insulin [HumaLOG] 0 unit SUB-Q ACHS units 02/01/21 02/17/21 Unknown Rx Sodium Chloride 0.9% Int [Sodium 10 ml IV BID syringe 02/01/21 02/17/21 Unknown Rx Chloride Flush Syringe 10 ml] diphenhydrAMINE/ZINC 2% [Banophen 1 applic TP Q8H PRN tube 02/01/21 02/17/21 Unknown Rx Anti-Itch] hydrOXYzine PAMOATE [Vistaril] 25 mg PO Q6H PRN capsule 02/01/21 02/17/21 Unknown Rx Acetaminophen [Acetaminophen TAB] 500 mg PO Q6HR 02/17/21 02/17/21 Unknown History Brimonidine 0.15% [Alphagan P 1 drops OD BID 02/17/21 02/17/21 Unknown History 0.15%] Cholecalciferol (Vitamin D3) 50,000 unit PO 2XW 02/17/21 02/17/21 Unknown History [Vitamin D3 50,000UNIT CAP] Colloidal Oatmeal [Eucerin Eczema 226 gm TP Q4H 02/17/21 02/17/21 Unknown History Relief] Docusate Sodium [Dok] 100 mg PO QDAY 02/17/21 02/17/21 Unknown History Dorzolamide HCl/Timolol Maleat 1 drop OD BID 02/17/21 02/17/21 Unknown History [Dorzolamide-Timolol Eye Drops] Famotidine [Pepcid] 20 mg PO BID 02/17/21 02/17/21 Unknown History Hydrocortisone/Aloe Vera 0 gm TP TID 02/17/21 02/17/21 Unknown History [Hydrocortisone-Aloe 0.5% Cream] Insulin Glargine,Hum.rec.anlog 9 units SQ QHS 02/17/21 02/17/21 Unknown History [Lantus Solostar] LORazepam [Ativan] 1 mg PO Q6H PRN 02/17/21 02/17/21 Unknown History Latanoprost 0.005% 1 drop OD QHS 02/17/21 02/17/21 Unknown History Metoprolol Xl [Metoprolol 25 mg PO BID 02/17/21 02/17/21 Unknown History SUCCINATE ER TAB] OLANZapine [Zyprexa] 5 mg PO QDAY 02/17/21 02/17/21 Unknown History Phenyleph/Mineral Oil/Petrolat 28 gm RC QDAY 02/17/21 02/17/21 Unknown History [Preparation H Ointment] Sevelamer Carbonate [Renvela] 1,600 mg PO TID 02/17/21 02/17/21 Unknown History diphenhydrAMINE [Benadryl CAP] 25 mg PO 3XW 02/17/21 02/17/21 Unknown History diphenhydrAMINE [Benadryl CAP] 25 mg PO Q6HR PRN 02/17/21 02/17/21 Unknown History hydrOXYzine HCL [Atarax] 25 mg PO Q6HR PRN 02/17/21 02/17/21 Unknown History lisinopriL [Lisinopril] 20 mg PO QDAY 02/17/21 02/17/21 Unknown History Active Medications: Generic Name Dose Route Start Last Admin Trade Name Freq PRN Reason Stop Dose Admin Acetaminophen 650 mg 03/16/21 18:54 Acetaminophen 325 Mg Tab PO Q4H PRN Pain MILD(1-3)/Fever >100.5/LOCKE Albuterol 2.5 mg 03/16/21 18:54 Albuterol 2.5 Mg/3 Ml Nebu IH Q4HRT PRN Shortness Of Breath Lipase/Protease/Amylase 1 each 03/19/21 10:34 Lipase 10,500/Protease 25,000/Amylase 43,750 (Units) Dr Gordon FEEDTUBE PRN PRN For Clogged Feeding Tube Atorvastatin Calcium 20 mg 03/16/21 22:00 03/19/21 22:00 Atorvastatin 20 Mg Tab PO Not Given QHS CRISTELA Dextrose 50 ml 03/18/21 20:11 Dextrose 50% In Water (25gm) 50 Ml Syringe IV Q30MIN PRN Hypoglycemia Protocol Docusate Sodium 100 mg 03/19/21 22:00 03/20/21 09:02 Docusate Sodium 100 Mg/10 Ml Oral Liqd FEEDTUBE Not Given BID CRISTELA Famotidine 10 mg 03/19/21 11:00 03/20/21 09:26 Famotidine 20 Mg/2 Ml Inj IV 10 mg BID CRISTELA Administration Fentanyl 50 mcg 03/18/21 12:54 Fentanyl 100 Mcg/2 Ml Inj IV Q10MIN PRN ANALGESIA Hydrocortisone Sodium Succinate 100 mg 03/18/21 15:00 03/20/21 05:48 Hydrocortisone Sod Succ 100 Mg/2 Ml Vial IV 100 mg Q8HR CRISTELA Administration Hydromorphone HCl 0.5 mg 03/16/21 18:54 Hydromorphone 1 Mg/1 Ml Inj IV Q23H PRN Pain , Severe (7-10) Hydroxyzine HCl 25 mg 03/16/21 18:57 Hydroxyzine Hcl 25 Mg Tab PO Q6HR PRN Itching Dopamine HCl 800 mg/ Dextrose 250 mls @ 3.113 mls/hr 03/17/21 14:00 03/20/21 09:36 IV 6 mcg/kg/min TITR CRISTELA 9.338 mls/hr Titration Protocol 2 MCG/KG/MIN Dextrose 1,000 mls @ 30 mls/hr 03/18/21 02:00 03/20/21 06:00 D10w IV 0 mls/hr DIRECT CRISTELA Infusion NORepinephrine/NS 8 MG-250 ML 8 mg in 250 mls @ 3.75 mls/hr 03/18/21 15:00 03/20/21 09:45 Norepinephrine/Ns 8 Mg-250 Ml (Double Conc) IV 10 mcg/min TITRATE CRISTELA 18.75 mls/hr Titration Protocol 2 MCG/MIN Fentanyl Citrate 2,000 mcg in 100 mls @ 4.15 mls/hr 03/18/21 13:00 03/19/21 15:08 Fentanyl Drip Premix IV 0 mcg/kg/hr TITR CRISTELA 0 mls/hr Titration Protocol 1 MCG/KG/HR Cefepime HCl 1 gm in 100 mls @ 200 mls/hr 03/18/21 15:00 03/19/21 17:05 Cefepime/Ns 1 Gm/100 Ml IV Infused Q24H CRISTELA Infusion Protocol Sodium Chloride 100 mls @ 999 mls/hr 03/19/21 09:34 Nacl 0.9% IV LATANYA PRN Hypotension Vasopressin 20 unit/ Sodium 101 mls @ 9.09 mls/hr 03/19/21 16:00 03/20/21 01:57 Chloride IV 0.03 units/min TITR CRISTELA 9.09 mls/hr Administration Protocol 0.03 UNITS/MIN Epinephrine 8 mg/ Sodium 250 mls @ 3.75 mls/hr 03/19/21 16:00 03/20/21 05:48 Chloride IV 10 mcg/min TITR CRISTELA 18.75 mls/hr Administration Protocol 2 MCG/MIN Latanoprost 1 drops 03/16/21 22:00 03/20/21 03:31 Latanoprost 0.005% Ophth Soln 2.5 Ml OD Not Given QHS [facility] Lorazepam 1 mg 03/16/21 18:57 Lorazepam 1 Mg Tab PO Q6H PRN Anxiety Midodrine 2.5 mg 03/19/21 09:00 03/20/21 08:30 Midodrine 2.5 Mg Tab PO Not Given Q8HR [facility] Miscellaneous Medication 1 drop 03/16/21 22:00 03/18/21 22:20 Dorzolamide Hcl/Timolol Maleat [Dorzolamide-Timolol Eye Drops] OD Not Given BID [facility] Olanzapine 5 mg 03/17/21 10:00 03/20/21 09:02 Olanzapine 5 Mg Tab PO Not Given QDAY [facility] Ondansetron HCl 4 mg 03/16/21 18:54 Ondansetron 4 Mg/2 Ml Inj IV Q8H PRN Nausea And Vomiting Oxycodone/Acetaminophen 1 tab 03/16/21 18:54 Oxycodone /Acetaminophen 5-325mg Tab PO Q16H PRN Pain, Moderate (4-6) Phenyleph/Shark Oil/Min Oil/Petrol 1 applic 03/17/21 10:00 03/20/21 09:02 Pe/Mo/Pet,Wh 10 Applic/28 Gm Tube NE Not Given QDAY [facility] Sevelamer Carbonate 1,600 mg 03/16/21 20:00 03/20/21 08:30 Sevelamer Carbonate 800 Mg Tab PO Not Given TID CRISTELA Simple Syrup 15 ml 03/19/21 10:34 Simple Syrup 15 Ml FEEDTUBE PRN PRN Hypoglycemia Simple Syrup 30 ml 03/19/21 10:34 Simple Syrup 15 Ml FEEDTUBE PRN PRN Hypoglycemia Sodium Bicarbonate 325 mg 03/19/21 10:34 Sodium Bicarbonate 325 Mg Tab FEEDTUBE PRN PRN For Clogged Feeding Tube Sodium Bicarbonate 100 meq 03/20/21 09:30 03/20/21 09:26 Sodium Bicarb 8.4% 50 Meq/50 Ml Syringe IV 03/20/21 12:00 100 meq [id number]@0930 [facility] Administration Sodium Chloride 10 ml 03/16/21 22:00 03/20/21 09:27 Sodium Chloride 0.9% 10 Ml Flush Syringe IV 10 ml BID CRISTELA Administration Sodium Chloride 10 ml 03/16/21 18:54 Sodium Chloride 0.9% 10 Ml Flush Syringe IV PRN PRN LINE FLUSH Zinc Acetate/Diphenhydramine 1 applic 03/16/21 18:57 Diphenhydramine/Zinc Acet 2% Cream 28.4 Gm TP Q8H PRN Itching
--- NOTE | 2021-03-20 11:30 | Progress Note ---
Assessment and Plan Assessment and plan: This is a 85-year-old male with past medical history of ESRD on HD(M,W,F), DM, Vascular Dementia, Cerebral Atherosclerosis, HTN, CVA, Legally Blind admitted for sepsis 2/2 pneumonia and bradycardia. On 03/18 patient went into respiratory distress requiring ventilatory support. Hospital Course: 03/18/2021: Respiratory distress this a.m. requiring intubation. Patient was obtunded this morning per RN report consistent with my exam findings today. I have a high suspicion for adrenal insufficiency. Cardiology following currently for symptomatic bradycardia pulse rate currently 70s. Per cardiology note, no indication for pacemaker at this time, they are okay with weaning dopamine gtt. Patient currently initiated on Levophed gtt, hydrocortisone, vanco/cefepime IV. Will continue to support with IVF, monitor UOP however suspect that this patient is anuric. Discussed patient case with longterm caregiver and patient brother. Patient brother states that there is no spouse however patient has multiple children. Patient brother states that there is a daughter who is local to [place]. Her number was provided. Case management consulted for discharge planning. 03/19: Remains on dopamine gtt, still junctional on the monitor. Midodrine added, Plan to wean off pressor for MAP goal above 65. Enteral feeding initiated, D10W stopped. 03/20: S/p X3 Cardiac arrest with ROSC. patient on multiple pressors this with metabolic acidosis this am, Patient is too unstable for HD, 2amp of bcarb ordered. Patient prognosis is very poor, still waiting on family's decision for goal of care. Patient remains as a FULL code for now. Assessment and Plan: #Probable Anoxic Brain Injury - Patient is s/p X3 cardiac arrest with ROSC - Unresponsive this am, not on any sedation - Corneal reflex and weak gag/cough noted - Patient is too unstable for CT scan - Awaiting family's desicion on goal of care #Acute hypoxic respiratory failure #COVID PUI - Hypoxic, not protecting airway on 03/18 encounter Intubated 03/18 - Vent setting:A/C-50%,6,24,450 - AM ABG noted - CCM consulted, appreciate recommendations - VAP bundle addressed - Aspiration precaution HOB above 30 - Sedation for RASS goal 0 to -1 - Daily SBT and SAT trials as tolerated - Daily ABG and CXR - Continue SPO2 monitoring for SPO2 goal above 92% #Cardiac Arrest with ROSC - Coded X3 yest., PEA arrested ROSC achieved X3 - SA/ST noted on the monitor - EKG pending - On 4 pressors- Epi, Vaso, Levo, and Dopamine Titrate pressors to maintain MAP greater than 65 - Continue blood pressure monitor per protocol #Bilateral Pneumonia #COVID PUI #Septic shock - Hypotensive, hypothermic, and bradycardia on admission, leukopenic - CXR with bilateral opacities - COVID PCR positive - Remains hypotermic - Blood culture and sputum culture is pending - Continue IV ABxvancomycin/Cefepime - Continue to F/U on B.cult - Daily CBC monitor #Symptomatic bradycardia - EK, junctional rhythm apparent. Was not pacing. - ECHO 1-2 mo ago: normal study 55-60%. - Patient remains in Junctional rhythm this am, HR 50 to 60s - cardiology consulted, no indication for ppm - Remains on Dopamine, plan to wean off as tolerated per Cardio #Adrenal insufficiency - Cortisol level was sent as was TSH = 3.8. - Hypotensive, hypothermic, hypoglycemic, hypokalemic on admission Hydrocortisone 100 mg iv q8hr initiated #ESRD requiring hemodialysis #Metabolic Acidosis #Hypophosphatemia - Creatinine 4.8 - Avoid nephrotoxins, renally adjust meds - Judicious fluid utilization as patient appears to be anuric - Nephrology on consult - Patient is too unstable for HD - 2amp of bcarb ordered - Monitor and replace electrolytes as needed - Trend BMP #Hyperglycemia - Presented with hypoglycemia, now hypeglycemia - D10W on hold, patient is also on IV steroids - Enteral nutrition initiated - BG check Q6hrs - Avoid hypoglycemia #Thrombocytopenia - Low plt since admit, unclear etiology - No AC at this time - SCDs to bilateral lower extremities while in bed Bennie Anderson Brother: [phone] Yvonne Anderson Daughter : [phone] The high probability of a clinically significant, sudden or life threatening deterioration of the [multi] system(s) required my full and direct attention, intervention and personal management. The aggregate critical care time was [60] minutes. This time is in addition to time spent performing reported procedures but includes the following: [x] Data Review and interpretation [x] Patient assessment and monitoring of vital signs [x] Documentation [x] Medication orders and management Disposition Plan: ICU Total Time Spent with Patient (Minutes): 60 History Interval history: Patient seen and examined at the bedside. s/p X3 PEA Arrest, now on multiple pressors. Remains on the vent, unresponsive, not on any sedation Hospitalist Physical - Constitutional Vitals: Temp Pulse Resp BP Pulse Ox 99.7 F H 117 H 30 H 181/59 100 03/20/21 08:28 03/20/21 11:00 03/20/21 11:00 03/20/21 11:00 03/20/21 11:00 General appearance: Present: mild distress, other (Intubated and unresponsive, not on any sedation) - EENT Eyes: Present: irregular pupil - Respiratory Respiratory effort: accessory muscle use Respiratory: bilateral: rhonchi - Cardiovascular Rhythm: regularly irregular Heart Sounds: Present: S1 & S2 - Extremities Extremities: abnormal Extremity abnormal: edema - Peripheral Assessment Generalized Edema Type: Pitting Edema Degree: 3+ Capillary Refill: < 3 seconds Skin Temperature: Warm Peripheral Pulses: within normal limits - Abdominal General gastrointestinal: soft, non-distended, hypoactive bowel sounds - Integumentary Integumentary: Present: warm, dry - Psychiatric Psychiatric: other (Intubated and unresponsive, not on any sedation) - Neurologic Neurologic: other (Intubated and unresponsive, not on any sedation) - Allied Health Allied health notes reviewed: nursing HEART Score - HEART Score Troponin: Troponin T 0.047 ng/mL (0.00-0.029) H 03/16/21 17:15 Results - Labs CBC & Chem 7: 03/20/21 04:30 03/20/21 04:30 Labs: Laboratory Last Values WBC 17.9 K/mm3 (4.5-11.0) H 03/20/21 04:30 RBC 2.68 M/mm3 (3.65-5.03) L 03/20/21 04:30 Hgb 7.6 gm/dl (11.8-15.2) L 03/20/21 04:30 Hct 24.9 % (35.5-45.6) L 03/20/21 04:30 MCV 93 fl (84-94) 03/20/21 04:30 MCH 28 pg (28-32) 03/20/21 04:30 MCHC 31 % (32-34) L 03/20/21 04:30 RDW 21.3 % (13.2-15.2) H 03/20/21 04:30 Plt Count 119 K/mm3 (140-440) L 03/20/21 04:30 Lymph % (Auto) 6.5 % (13.4-35.0) L 03/17/21 10:11 [place] % (Auto) 3.9 % (0.0-7.3) 03/17/21 10:11 Eos % (Auto) 1.9 % (0.0-4.3) 03/17/21 10:11 Baso % (Auto) 0.7 % (0.0-1.8) 03/17/21 10:11 Lymph # (Auto) 0.3 K/mm3 (1.2-5.4) L 03/17/21 10:11 [place] # (Auto) 0.2 K/mm3 (0.0-0.8) 03/17/21 10:11 Eos # (Auto) 0.1 K/mm3 (0.0-0.4) 03/17/21 10:11 Baso # (Auto) 0.0 K/mm3 (0.0-0.1) 03/17/21 10:11 Add Manual Diff Complete 03/19/21 03:08 Total Counted 100 03/19/21 03:08 Seg Neutrophils % [place] 03/19/21 03:08 Seg Neuts % (Manual) 98.0 % (40.0-70.0) H 03/19/21 03:08 Band Neutrophils % 0 % 03/19/21 03:08 Lymphocytes % (Manual) 1.0 % (13.4-35.0) L 03/19/21 03:08 Reactive Lymphs % (Man) 0 % 03/19/21 03:08 Monocytes % (Manual) 1.0 % (0.0-7.3) 03/19/21 03:08 Eosinophils % (Manual) 0 % (0.0-4.3) 03/19/21 03:08 Basophils % (Manual) 0 % (0.0-1.8) 03/19/21 03:08 Metamyelocytes % 0 % 03/19/21 03:08 Myelocytes % 0 % 03/19/21 03:08 Promyelocytes % 0 % 03/19/21 03:08 Blast Cells % 0 % 03/19/21 03:08 Nucleated RBC % 1.0 % (0.0-0.9) H 03/19/21 03:08 Seg Neutrophils # 4.4 K/mm3 (1.8-7.7) 03/17/21 10:11 Seg Neutrophils # Man 10.6 K/mm3 (1.8-7.7) H 03/19/21 03:08 Band Neutrophils # 0.0 K/mm3 03/19/21 03:08 Lymphocytes # (Manual) 0.1 K/mm3 (1.2-5.4) L 03/19/21 03:08 Abs React Lymphs (Man) 0.0 K/mm3 03/19/21 03:08 Monocytes # (Manual) 0.1 K/mm3 (0.0-0.8) 03/19/21 03:08 Eosinophils # (Manual) 0.0 K/mm3 (0.0-0.4) 03/19/21 03:08 Basophils # (Manual) 0.0 K/mm3 (0.0-0.1) 03/19/21 03:08 Metamyelocytes # 0.0 K/mm3 03/19/21 03:08 Myelocytes # 0.0 K/mm3 03/19/21 03:08 Promyelocytes # 0.0 K/mm3 03/19/21 03:08 Blast Cells # 0.0 K/mm3 03/19/21 03:08 WBC Morphology Not Reportable 03/19/21 03:08 Hypersegmented Neuts Not Reportable 03/19/21 03:08 Hyposegmented Neuts Not Reportable 03/19/21 03:08 Hypogranular Neuts Not Reportable 03/19/21 03:08 Smudge Cells Not Reportable 03/19/21 03:08 Toxic Granulation Not Reportable 03/19/21 03:08 Toxic Vacuolation Not Reportable 03/19/21 03:08 Dohle Bodies Not Reportable 03/19/21 03:08 Pelger-Huet Anomaly Not Reportable 03/19/21 03:08 Amari Rods Not Reportable 03/19/21 03:08 Platelet Estimate Consistent w auto 03/19/21 03:08 Clumped Platelets Not Reportable 03/19/21 03:08 Plt Clumps, EDTA Not Reportable 03/19/21 03:08 Large Platelets Not Reportable 03/19/21 03:08 Giant Platelets Not Reportable 03/19/21 03:08 Platelet Satelliting Not Reportable 03/19/21 03:08 Plt Morphology Comment Not Reportable 03/19/21 03:08 RBC Morphology Not Reportable 03/19/21 03:08 Dimorphic RBCs Not Reportable 03/19/21 03:08 Polychromasia Not Reportable 03/19/21 03:08 Hypochromasia Not Reportable 03/19/21 03:08 Poikilocytosis Not Reportable 03/19/21 03:08 Anisocytosis 1+ 03/19/21 03:08 Microcytosis Not Reportable 03/19/21 03:08 Macrocytosis Not Reportable 03/19/21 03:08 Spherocytes Not Reportable 03/19/21 03:08 Pappenheimer Bodies Not Reportable 03/19/21 03:08 Sickle Cells Not Reportable 03/19/21 03:08 Target Cells Not Reportable 03/19/21 03:08 Tear Drop Cells Not Reportable 03/19/21 03:08 Ovalocytes Not Reportable 03/19/21 03:08 Helmet Cells Not Reportable 03/19/21 03:08 [place] Bodies Not Reportable 03/19/21 03:08 [place] Rings Not Reportable 03/19/21 03:08 [place] Cells Not Reportable 03/19/21 03:08 Bite Cells Not Reportable 03/19/21 03:08 Crenated Cell Not Reportable 03/19/21 03:08 Elliptocytes Not Reportable 03/19/21 03:08 Acanthocytes (Spur) Not Reportable 03/19/21 03:08 Rouleaux Not Reportable 03/19/21 03:08 Hemoglobin C Crystals Not Reportable 03/19/21 03:08 Schistocytes Not Reportable 03/19/21 03:08 Malaria parasites Not Reportable 03/19/21 03:08 [place] Bodies Not Reportable 03/19/21 03:08 Hem Pathologist Commnt No 03/19/21 03:08 PT 14.5 Sec. (12.2-14.9) 03/16/21 17:15 INR 1.02 (0.87-1.13) 03/16/21 17:15 APTT 47.7 Sec. (24.2-36.6) H 03/16/21 17:15 ABG pH 7.238 pH Units (7.350-7.450) L 03/20/21 05:58 POC ABG pCO2 28.9 mmHg (32.0-48.0) L 03/19/21 06:05 ABG pCO2 34.8 mm Hg 03/20/21 05:58 POC ABG pO2 117.8 mmHg (83-108) H 03/19/21 06:05 ABG pO2 381.8 mm Hg (80.0-90.0) H 03/20/21 05:58 POC ABG HCO3 22.1 03/19/21 06:05 ABG HCO3 14.5 mmol/L (20.0-26.0) L 03/20/21 05:58 ABG O2 Saturation 99.6 % (95.0-99.0) H 03/20/21 05:58 ABG O2 Content 16.6 (0.0-44) 03/20/21 05:58 POC ABG Base Excess -0.7 03/19/21 06:05 ABG Base Excess -11.9 mmol/L (-2.0-3.0) L 03/20/21 05:58 ABG Hemoglobin 11.3 gm/dl (14.0-18.0) L 03/20/21 05:58 ABG Oxyhemoglobin 96.5 (94-98) 03/19/21 06:05 ABG Carboxyhemoglobin 1.2 % (0.0-5.0) 03/20/21 05:58 ABG Methemoglobin 0.6 % (0.0-1.5) 03/20/21 05:58 Oxyhemoglobin 97.7 % (95.0-99.0) 03/20/21 05:58 Carboxyhemoglobin 1.5 (0.5-1.5) 03/19/21 06:05 FiO2 100 % 03/20/21 05:58 FiO2 % 25.0 03/19/21 06:05 Sodium 142 mmol/L (137-145) 03/20/21 04:30 Potassium 4.5 mmol/L (3.6-5.0) 03/20/21 04:30 Chloride 103.0 mmol/L (98-107) 03/20/21 04:30 Carbon Dioxide 13 mmol/L (22-30) L D 03/20/21 04:30 Anion Gap 31 mmol/L 03/20/21 04:30 BUN 59 mg/dL (9-20) H 03/20/21 04:30 Creatinine 5.6 mg/dL (0.8-1.3) H 03/20/21 04:30 Estimated GFR 12 ml/min 03/20/21 04:30 BUN/Creatinine Ratio 11 % 03/20/21 04:30 Glucose 318 mg/dL (75-100) H 03/20/21 04:30 POC Glucose 179 mg/dL (70-105) H 03/20/21 07:48 Lactic Acid 1.30 mmol/L (0.7-2.0) 03/19/21 03:08 Calcium 8.0 mg/dL (8.4-10.2) L 03/20/21 04:30 Phosphorus 6.40 mg/dL (2.5-4.5) H D 03/20/21 04:30 Magnesium 2.00 mg/dL (1.7-2.3) 03/20/21 04:30 Total Bilirubin 0.20 mg/dL (0.1-1.2) 03/19/21 03:08 AST 27 units/L (5-40) 03/19/21 03:08 ALT 32 units/L (7-56) 03/19/21 03:08 Alkaline Phosphatase 154 units/L (35-129) H 03/19/21 03:08 Troponin T 0.047 ng/mL (0.00-0.029) H 03/16/21 17:15 Total Protein 5.1 g/dL (6.3-8.2) L 03/19/21 03:08 Albumin 2.6 g/dL (3.9-5) L 03/19/21 03:08 Albumin/Globulin Ratio 1.0 % 03/19/21 03:08 Triglycerides 40 mg/dL (2-149) 03/16/21 17:15 Cholesterol 77 mg/dL (50-199) 03/16/21 17:15 LDL Cholesterol Direct 17 mg/dL (50-130) L 03/16/21 17:15 HDL Cholesterol 54 mg/dL (40-59) 03/16/21 17:15 Cholesterol/HDL Ratio 1.42 % 03/16/21 17:15 Procalcitonin 5.08 ng/mL (<0.15) 03/18/21 14:40 TSH 0.839 mlU/mL (0.270-4.200) 03/19/21 Unknown Free T4 0.96 ng/dL (0.76-1.46) 03/18/21 14:40 Total Cortisol 18.3 mcg/dL () 03/16/21 22:20 Random Vancomycin 24.5 ug/mL (0-40.0) 03/19/21 03:08 Coronavirus (PCR) Positive (Negative) A 03/19/21 08:30 Hepatitis A IgM Ab Non-reactive (NonReactive) 03/19/21 Unknown Hep Bs Antigen Non-reactive (Negative) 03/19/21 Unknown Hep B Core IgM Ab Non-reactive (NonReactive) 03/19/21 Unknown Hepatitis C Antibody Non-reactive (NonReactive) 03/19/21 Unknown Microbiology: Microbiology 03/18/21 14:27 Tracheal Aspirate Sputum Culture - Preliminary Staphylococcus Aureus 03/18/21 14:30 Peripheral/Venous Blood Culture - Preliminary NO GROWTH AFTER 24 HOURS 03/18/21 14:30 Peripheral/Venous Blood Culture - Preliminary NO GROWTH AFTER 24 HOURS [place]/IV: Voiding Method Incontinent Active Medications - Current Medications Current Medications: Generic Name Dose Route Start Last Admin Trade Name Freq PRN Reason Stop Dose Admin Acetaminophen 650 mg 03/16/21 18:54 Acetaminophen 325 Mg Tab PO Q4H PRN Pain MILD(1-3)/Fever >100.5/LOCKE Albuterol 2.5 mg 03/16/21 18:54 Albuterol 2.5 Mg/3 Ml Nebu IH Q4HRT PRN Shortness Of Breath Lipase/Protease/Amylase 1 each 03/19/21 10:34 Lipase 10,500/Protease 25,000/Amylase 43,750 (Units) Dr Gordon FEEDTUBE PRN PRN For Clogged Feeding Tube Atorvastatin Calcium 20 mg 03/16/21 22:00 03/19/21 22:00 Atorvastatin 20 Mg Tab PO Not Given QHS CRISTELA Dextrose 50 ml 03/18/21 20:11 Dextrose 50% In Water (25gm) 50 Ml Syringe IV Q30MIN PRN Hypoglycemia Protocol Docusate Sodium 100 mg 03/19/21 22:00 03/20/21 09:02 Docusate Sodium 100 Mg/10 Ml Oral Liqd FEEDTUBE Not Given BID CRISTELA Famotidine 10 mg 03/19/21 11:00 03/20/21 09:26 Famotidine 20 Mg/2 Ml Inj IV 10 mg BID CRISTELA Administration Fentanyl 50 mcg 03/18/21 12:54 Fentanyl 100 Mcg/2 Ml Inj IV Q10MIN PRN ANALGESIA Hydrocortisone Sodium Succinate 100 mg 03/18/21 15:00 03/20/21 05:48 Hydrocortisone Sod Succ 100 Mg/2 Ml Vial IV 100 mg Q8HR CRISTELA Administration Hydromorphone HCl 0.5 mg 03/16/21 18:54 Hydromorphone 1 Mg/1 Ml Inj IV Q23H PRN Pain , Severe (7-10) Hydroxyzine HCl 25 mg 03/16/21 18:57 Hydroxyzine Hcl 25 Mg Tab PO Q6HR PRN Itching Dopamine HCl 800 mg/ Dextrose 250 mls @ 3.113 mls/hr 03/17/21 14:00 03/20/21 10:35 IV 4 mcg/kg/min TITR CRISTELA 6.225 mls/hr Titration Protocol 2 MCG/KG/MIN Dextrose 1,000 mls @ 30 mls/hr 03/18/21 02:00 03/20/21 06:00 D10w IV 0 mls/hr DIRECT CRISTELA Infusion NORepinephrine/NS 8 MG-250 ML 8 mg in 250 mls @ 3.75 mls/hr 03/18/21 15:00 03/20/21 09:45 Norepinephrine/Ns 8 Mg-250 Ml (Double Conc) IV 10 mcg/min TITRATE CRISTELA 18.75 mls/hr Titration Protocol 2 MCG/MIN Fentanyl Citrate 2,000 mcg in 100 mls @ 4.15 mls/hr 03/18/21 13:00 03/19/21 15:08 Fentanyl Drip Premix IV 0 mcg/kg/hr TITR CRISTELA 0 mls/hr Titration Protocol 1 MCG/KG/HR Cefepime HCl 1 gm in 100 mls @ 200 mls/hr 03/18/21 15:00 03/19/21 17:05 Cefepime/Ns 1 Gm/100 Ml IV Infused Q24H CRISTELA Infusion Protocol Sodium Chloride 100 mls @ 999 mls/hr 03/19/21 09:34 Nacl 0.9% IV LATANYA PRN Hypotension Vasopressin 20 unit/ Sodium 101 mls @ 9.09 mls/hr 03/19/21 16:00 03/20/21 01:57 Chloride IV 0.03 units/min TITR CRISTELA 9.09 mls/hr Administration Protocol 0.03 UNITS/MIN Epinephrine 8 mg/ Sodium 250 mls @ 3.75 mls/hr 03/19/21 16:00 03/20/21 05:48 Chloride IV 10 mcg/min TITR CRISTELA 18.75 mls/hr Administration Protocol 2 MCG/MIN Latanoprost 1 drops 03/16/21 22:00 03/20/21 03:31 Latanoprost 0.005% Ophth Soln 2.5 Ml OD Not Given QHS [facility] Lorazepam 1 mg 03/16/21 18:57 Lorazepam 1 Mg Tab PO Q6H PRN Anxiety Midodrine 2.5 mg 03/19/21 09:00 03/20/21 08:30 Midodrine 2.5 Mg Tab PO Not Given Q8HR [facility] Miscellaneous Medication 1 drop 03/16/21 22:00 03/18/21 22:20 Dorzolamide Hcl/Timolol Maleat [Dorzolamide-Timolol Eye Drops] OD Not Given BID [facility] Olanzapine 5 mg 03/17/21 10:00 03/20/21 09:02 Olanzapine 5 Mg Tab PO Not Given QDAY [facility] Ondansetron HCl 4 mg 03/16/21 18:54 Ondansetron 4 Mg/2 Ml Inj IV Q8H PRN Nausea And Vomiting Oxycodone/Acetaminophen 1 tab 03/16/21 18:54 Oxycodone /Acetaminophen 5-325mg Tab PO Q16H PRN Pain, Moderate (4-6) Phenyleph/Shark Oil/Min Oil/Petrol 1 applic 03/17/21 10:00 03/20/21 09:02 Pe/Mo/Pet,Wh 10 Applic/28 Gm Tube CO Not Given QDAY [facility] Sevelamer Carbonate 1,600 mg 03/16/21 20:00 03/20/21 08:30 Sevelamer Carbonate 800 Mg Tab PO Not Given TID CRISTELA Simple Syrup 15 ml 03/19/21 10:34 Simple Syrup 15 Ml FEEDTUBE PRN PRN Hypoglycemia Simple Syrup 30 ml 03/19/21 10:34 Simple Syrup 15 Ml FEEDTUBE PRN PRN Hypoglycemia Sodium Bicarbonate 325 mg 03/19/21 10:34 Sodium Bicarbonate 325 Mg Tab FEEDTUBE PRN PRN For Clogged Feeding Tube Sodium Bicarbonate 100 meq 03/20/21 09:30 03/20/21 09:26 Sodium Bicarb 8.4% 50 Meq/50 Ml Syringe IV 03/20/21 12:00 100 meq [id number]@[id number] CRISTELA Administration Sodium Chloride 10 ml 03/16/21 22:00 03/20/21 09:27 Sodium Chloride 0.9% 10 Ml Flush Syringe IV 10 ml BID CRISTELA Administration Sodium Chloride 10 ml 03/16/21 18:54 Sodium Chloride 0.9% 10 Ml Flush Syringe IV PRN PRN LINE FLUSH Zinc Acetate/Diphenhydramine 1 applic 03/16/21 18:57 Diphenhydramine/Zinc Acet 2% Cream 28.4 Gm TP Q8H PRN Itching Nutrition/Malnutrition Assess - Dietary Evaluation Nutrition/Malnutrition Findings: Nutrition Notes Start: 03/19/21 11:41 Freq: Status: Active Protocol: Document 03/19/21 11:45 CAIT (Rec: 03/19/21 12:08 CAIT [id number]) Nutrition Notes Need for Assessment generated from: MD Order Initial or Follow up Assessment Other Pertinent Diagnosis Pneumonia, Bradycardia, ESRD+ HD, V Dementia, Hypotension, CVA, AMS. Current Diet TF-Nepro w/CARBSTEADY @ 36 ml/ hr (since D 03/19). Labs/Tests 03/19: CO2 21, BUN 49, Crea 5. 1, Glu 239, Ca 8.0, Phos 1.9. Pertinent Medications 03/19: Nutritionally unremarkable. Height 5 ft 11 in Weight 78.8 kg [place] Body Weight (kg) 78.18 BMI 24.2 Intake Prior to Admission Good Weight change and time frame Pt states not having loss body weight recently. Weight Status Appropriate Subjective/Other Information RD consult for TF write/manage and skin risk assessment. Pt's Ht&Wt were taken from prior visit on 02/26/2021, due to wrong data available at the time (63ft/86Kg). Pt is on mechanical ventilation. Pt shows some redness, dryness and flakyness, but no signs of concern for skin risk, according to Physical Assessment, History notes. Percent of energy/protein needs met: Prescribed Nepro w/CARBSTEADY @ 36 ml/hr provides for energy /protein needs (2,000 Kcal/82 g) during LOS, 100% Kcal; 90% AA. Burn Absent Trauma Absent GI Symptoms None Food Allergy No Skin Integrity/Comment Redness, dryness, flakyness Current % PO Other Minimum of two criteria No #1 Nutrition Diagnosis Inadequate oral intake Etiology Pt on mechanical ventilation As Evidenced by Signs and Symptoms Pt is on NPO. Is patient on ventilator? Yes Is Patient Ambulatory and/or Out of Bed No REE-([facility]-confined to bed) 1813.176 Kcal/Kg value to use for calculation 20 Approximate Energy Requirements Using 1576 kcal/Kg Calculation Used for Recommendations Kcal/kg Additional Notes Protein: 1-1.2 g/Kg; 79-95 g/ day. Fluids: 1 ml/Kcal, or as per MD. Nutrition Intervention Nutrition Support: Start Nepro w/CARBSTEADY @ 36 ml/hr. Flush: 150 ml water Q 4 hr, or as per MD. Kcal 1,576 Protein (gm) 71 Carbohydrates (gm) 141 Fat (gm) 84 Fluid (mL) 637 Fiber (gm) 11 % RDI: 100% Kcal; 90% AA. Goal #1 Provide at least 75% of energy /protein needs through Enteral Feeding during LOS. Follow-Up By: 03/23/21 Additional Comments Continue monitoring TF tolerance and BM.
--- NOTE | 2021-03-20 12:54 | Progress Note ---
Assessment and Plan PEA arrest with ROSCAcute hypoxic respiratory failure Septic shock Pneumonia Symptomatic bradycardia ESRD requiring hemodialysis Continue with vasopressor support, bicarbonate infusion ordered Goals of care- family continue to want full resuscitation in the event of cardiac arrest -Titrate supplemental oxygen to keep SPO2 88-90% -VAP bundle addressed, aspiration precautions -Supportive HD per renal service- too unstable to tolerate -VTE prophylaxis -Stress ulcer prophylaxis -Adjust minute ventilation- patient has a metabolic acidosis -Continue with stress dose steroids -Continue with broad spectrum antibiotics - Supportive transfusions as clinically indicated, to keep Hgb >7g/dL -Address nutritional support -Accuchecks, avoid hypoglycemia -Contact and airborne isolation CONDITION: CRITICAL PROGNOSIS; GUARDED-POOR CODE STATUS FULL CODE The high probability of a clinically significant, sudden or life threatening deterioration of the respiratory, cardiovascular,renal, neurology system(s) required my full and direct attention, intervention and personal management. The aggregate critical care time was [35] minutes. This time is in addition to time spent performing reported procedures but includes the following: [x] Data Review and interpretation [x] Patient assessment and monitoring of vital signs [x] Documentation [x] Medication orders and management Subjective Date of service: 03/20/21 Principal diagnosis: Bilateral pneumonia, CHF exacerbation Interval history: Follow up for septic shock; acute hypoxemic resp failure on MVS; bilateral pneumonia S/p X3 Cardiac arrest with ROSC. 3 pressor shock On full MVS Seen adn examined. Vitals, labs, medications, chart and imaging reviewed. Discussed with resp and nursing care staff. PEA arrest this afternoon with ROSC Bicarbonate infusion ordered Objective Vital Signs - 12hr 03/20/21 03/20/21 03/20/21 01:01 01:11 01:21 Temperature Pulse Rate 171 H 160 H 157 H Pulse Rate [ From Monitor] Respiratory 22 19 25 H Rate Blood Pressure 197/76 131/80 222/77 O2 Sat by Pulse Oximetry 03/20/21 03/20/21 03/20/21 01:31 01:41 01:51 Temperature Pulse Rate 158 H 163 H 162 H Pulse Rate [ From Monitor] Respiratory 24 25 H 19 Rate Blood Pressure 204/54 218/79 174/56 O2 Sat by Pulse Oximetry 03/20/21 03/20/21 03/20/21 02:01 02:11 02:21 Temperature Pulse Rate 166 H 152 H 151 H Pulse Rate [ From Monitor] Respiratory 26 H 25 H 25 H Rate Blood Pressure 208/76 184/60 180/67 O2 Sat by Pulse Oximetry 03/20/21 03/20/21 03/20/21 02:31 02:40 02:50 Temperature Pulse Rate 156 H 131 H 162 H Pulse Rate [ From Monitor] Respiratory 22 Rate Blood Pressure 165/60 149/68 147/92 O2 Sat by Pulse Oximetry 03/20/21 03/20/21 03/20/21 03:01 03:11 03:21 Temperature Pulse Rate 144 H 130 H 170 H Pulse Rate [ From Monitor] Respiratory 21 25 H 21 Rate Blood Pressure 143/62 197/59 169/77 O2 Sat by Pulse Oximetry 03/20/21 03/20/21 03/20/21 03:31 03:41 03:44 Temperature 98.8 F Pulse Rate 172 H 132 H Pulse Rate [ From Monitor] Respiratory 26 H 22 Rate Blood Pressure 164/77 153/69 O2 Sat by Pulse Oximetry 03/20/21 03/20/21 03/20/21 03:51 04:00 04:01 Temperature Pulse Rate 164 H 174 H 135 H Pulse Rate [ 170 H From Monitor] Respiratory 25 H 24 22 Rate Blood Pressure 174/67 200/71 O2 Sat by Pulse 91 Oximetry 03/20/21 03/20/21 03/20/21 04:11 04:21 04:31 Temperature Pulse Rate 150 H 155 H 158 H Pulse Rate [ From Monitor] Respiratory 22 26 H 24 Rate Blood Pressure 179/60 201/79 157/72 O2 Sat by Pulse Oximetry 03/20/21 03/20/21 03/20/21 04:41 04:51 05:00 Temperature Pulse Rate 168 H 171 H 172 H Pulse Rate [ From Monitor] Respiratory 25 H 27 H Rate Blood Pressure 189/69 180/59 158/77 O2 Sat by Pulse 48 L 39 L 99 Oximetry 03/20/21 03/20/21 03/20/21 05:01 05:11 05:21 Temperature Pulse Rate 170 H 172 H 162 H Pulse Rate [ From Monitor] Respiratory 23 26 H 28 H Rate Blood Pressure 154/67 158/77 138/74 O2 Sat by Pulse 38 L 98 96 Oximetry 03/20/21 03/20/21 03/20/21 05:30 05:41 05:51 Temperature Pulse Rate 155 H 173 H 175 H Pulse Rate [ From Monitor] Respiratory 28 H 24 26 H Rate Blood Pressure 130/64 152/76 149/69 O2 Sat by Pulse 100 97 89 Oximetry 03/20/21 03/20/21 03/20/21 06:00 06:11 06:20 Temperature Pulse Rate 145 H 132 H 167 H Pulse Rate [ From Monitor] Respiratory 20 23 27 H Rate Blood Pressure 174/63 143/68 153/55 O2 Sat by Pulse 93 89 Oximetry 03/20/21 03/20/21 03/20/21 06:31 06:40 06:50 Temperature Pulse Rate 170 H 149 H 133 H Pulse Rate [ From Monitor] Respiratory 27 H 28 H 27 H Rate Blood Pressure 150/64 141/52 162/39 O2 Sat by Pulse 84 93 Oximetry 03/20/21 03/20/21 03/20/21 07:00 07:10 07:20 Temperature Pulse Rate 119 H 119 H 116 H Pulse Rate [ From Monitor] Respiratory 28 H 23 26 H Rate Blood Pressure 175/57 180/66 177/69 O2 Sat by Pulse 63 L Oximetry 03/20/21 03/20/21 03/20/21 07:30 07:40 07:48 Temperature Pulse Rate 119 H 118 H 119 H Pulse Rate [ From Monitor] Respiratory 29 H 27 H Rate Blood Pressure 189/77 182/66 O2 Sat by Pulse 98 100 Oximetry 03/20/21 03/20/21 03/20/21 07:50 08:00 08:10 Temperature Pulse Rate 119 H 118 H 121 H Pulse Rate [ 119 H From Monitor] Respiratory 26 H 22 28 H Rate Blood Pressure 190/69 195/68 191/68 O2 Sat by Pulse 43 L 90 95 Oximetry 03/20/21 03/20/21 03/20/21 08:20 08:28 08:30 Temperature 99.7 F H Pulse Rate 119 H 118 H Pulse Rate [ From Monitor] Respiratory 25 H 16 Rate Blood Pressure 184/61 196/64 O2 Sat by Pulse 96 55 L Oximetry 03/20/21 03/20/21 03/20/21 08:40 08:50 09:00 Temperature Pulse Rate 117 H 117 H 117 H Pulse Rate [ From Monitor] Respiratory 21 26 H 26 H Rate Blood Pressure 197/69 194/67 194/62 O2 Sat by Pulse 93 91 79 L Oximetry 01/21/22 01/21/22 01/21/22 09:08 09:10 09:20 Temperature Pulse Rate 114 H 117 H 111 H Pulse Rate [ From Monitor] Respiratory 25 H 23 Rate Blood Pressure 199/63 199/63 156/48 O2 Sat by Pulse 95 98 83 L Oximetry 03/20/21 03/20/21 03/20/21 09:30 09:40 09:50 Temperature Pulse Rate 109 H 115 H 116 H Pulse Rate [ From Monitor] Respiratory 36 H 24 23 Rate Blood Pressure 156/47 199/60 180/57 O2 Sat by Pulse 89 96 93 Oximetry 03/20/21 03/20/21 03/20/21 10:00 10:10 10:20 Temperature Pulse Rate 117 H 117 H 117 H Pulse Rate [ From Monitor] Respiratory 23 24 24 Rate Blood Pressure 183/57 189/61 183/56 O2 Sat by Pulse 97 97 96 Oximetry 03/20/21 03/20/21 03/20/21 10:30 10:40 10:50 Temperature Pulse Rate 118 H 118 H 117 H Pulse Rate [ From Monitor] Respiratory 24 24 24 Rate Blood Pressure 199/56 174/58 192/60 O2 Sat by Pulse 94 91 97 Oximetry 03/20/21 03/20/21 03/20/21 11:00 11:10 11:20 Temperature Pulse Rate 117 H 117 H 117 H Pulse Rate [ From Monitor] Respiratory 30 H 26 H 30 H Rate Blood Pressure 181/59 181/58 166/56 O2 Sat by Pulse 100 100 99 Oximetry 03/20/21 03/20/21 03/20/21 11:30 11:40 11:50 Temperature Pulse Rate 117 H 117 H 116 H Pulse Rate [ From Monitor] Respiratory 24 27 H 35 H Rate Blood Pressure 165/53 173/55 160/56 O2 Sat by Pulse 51 L 98 97 Oximetry 03/20/21 03/20/21 03/20/21 11:56 12:00 12:16 Temperature Pulse Rate 116 H 116 H 116 H Pulse Rate [ 116 H From Monitor] Respiratory 26 H Rate Blood Pressure 178/56 172/56 O2 Sat by Pulse 97 100 Oximetry Constitutional: other (chronically ill looking, orally intuabted to MVS ETT SHRUTHI 23 cm) Eyes: non-icteric ENT: oropharynx dry Neck: supple, no lymphadenopathy, no JVD Effort: mildly labored Ascultation: Bilateral: diminished breath sounds, rhonchi Cardiovascular: other (S1,S2- bradycardia) Gastrointestinal: normoactive bowel sounds, soft, non-tender Integumentary: other (skin rash at different stages of healing- crusted, hyperpigmented diffuse) Extremities: no cyanosis, no edema Neurologic: unable to assess, other (Opacification of the left eye) CBC and BMP: 03/20/21 04:30 03/20/21 04:30 ABG, PT/INR, D-dimer: ABG ABG pH 7.238 pH Units (7.350-7.450) L 03/20/21 05:58 POC ABG pCO2 28.9 mmHg (32.0-48.0) L 03/19/21 06:05 ABG pCO2 34.8 mm Hg 03/20/21 05:58 POC ABG pO2 117.8 mmHg (83-108) H 03/19/21 06:05 ABG pO2 381.8 mm Hg (80.0-90.0) H 03/20/21 05:58 POC ABG HCO3 22.1 03/19/21 06:05 ABG O2 Saturation 99.6 % (95.0-99.0) H 03/20/21 05:58 PT/INR, D-dimer PT 14.5 Sec. (12.2-14.9) 03/16/21 17:15 INR 1.02 (0.87-1.13) 03/16/21 17:15 Abnormal lab findings: Abnormal Labs 03/16/21 03/16/21 03/16/21 17:15 17:15 17:15 WBC 3.6 L RBC 2.62 L Hgb 7.7 L Hct 23.9 L MCHC RDW 21.8 H Plt Count 71 L Lymph % (Auto) 9.6 L Lymph # (Auto) 0.3 L Seg Neutrophils % 81.2 H Seg Neuts % (Manual) Lymphocytes % (Manual) Nucleated RBC % Seg Neutrophils # Man Lymphocytes # (Manual) APTT 47.7 H ABG pH POC ABG pCO2 POC ABG pO2 ABG pO2 ABG HCO3 ABG O2 Saturation ABG Base Excess ABG Hemoglobin Potassium 3.5 L Chloride Carbon Dioxide BUN 31 H Creatinine 4.1 H Glucose 143 H POC Glucose Calcium Phosphorus Alkaline Phosphatase 133 H Troponin T 0.047 H Total Protein 5.8 L Albumin 2.5 L LDL Cholesterol Direct 17 L Coronavirus (PCR) 03/17/21 03/17/21 03/17/21 00:14 10:11 10:11 WBC RBC 2.26 L Hgb 6.6 L Hct 20.4 L MCHC RDW 21.2 H Plt Count 68 L Lymph % (Auto) 6.5 L Lymph # (Auto) 0.3 L Seg Neutrophils % 87.0 H Seg Neuts % (Manual) Lymphocytes % (Manual) Nucleated RBC % Seg Neutrophils # Man Lymphocytes # (Manual) APTT ABG pH POC ABG pCO2 POC ABG pO2 ABG pO2 ABG HCO3 ABG O2 Saturation ABG Base Excess ABG Hemoglobin Potassium Chloride 110.2 H Carbon Dioxide 21 L BUN 34 H Creatinine 4.1 H Glucose 61 L POC Glucose 118 H Calcium Phosphorus Alkaline Phosphatase Troponin T Total Protein Albumin LDL Cholesterol Direct Coronavirus (PCR) 03/17/21 03/17/21 03/17/21 15:16 16:16 17:18 WBC RBC Hgb Hct MCHC RDW Plt Count Lymph % (Auto) Lymph # (Auto) Seg Neutrophils % Seg Neuts % (Manual) Lymphocytes % (Manual) Nucleated RBC % Seg Neutrophils # Man Lymphocytes # (Manual) APTT ABG pH POC ABG pCO2 POC ABG pO2 ABG pO2 ABG HCO3 ABG O2 Saturation ABG Base Excess ABG Hemoglobin Potassium Chloride Carbon Dioxide BUN Creatinine Glucose POC Glucose 69 L 59 L 60 L Calcium Phosphorus Alkaline Phosphatase Troponin T Total Protein Albumin LDL Cholesterol Direct Coronavirus (PCR) 03/17/21 03/18/21 03/18/21 22:28 00:32 01:46 WBC RBC Hgb Hct MCHC RDW Plt Count Lymph % (Auto) Lymph # (Auto) Seg Neutrophils % Seg Neuts % (Manual) Lymphocytes % (Manual) Nucleated RBC % Seg Neutrophils # Man Lymphocytes # (Manual) APTT ABG pH POC ABG pCO2 POC ABG pO2 ABG pO2 ABG HCO3 ABG O2 Saturation ABG Base Excess ABG Hemoglobin Potassium Chloride Carbon Dioxide BUN Creatinine Glucose POC Glucose 32 L 12 L 53 L Calcium Phosphorus Alkaline Phosphatase Troponin T Total Protein Albumin LDL Cholesterol Direct Coronavirus (PCR) 03/18/21 03/18/21 03/18/21 03:14 05:00 05:00 WBC RBC 2.57 L Hgb 7.4 L Hct 23.2 L MCHC RDW 20.8 H Plt Count 77 L Lymph % (Auto) Lymph # (Auto) Seg Neutrophils % Seg Neuts % (Manual) Lymphocytes % (Manual) Nucleated RBC % Seg Neutrophils # Man Lymphocytes # (Manual) APTT ABG pH POC ABG pCO2 POC ABG pO2 ABG pO2 ABG HCO3 ABG O2 Saturation ABG Base Excess ABG Hemoglobin Potassium Chloride 107.8 H Carbon Dioxide BUN 40 H Creatinine 4.8 H Glucose 44 L POC Glucose 38 L Calcium Phosphorus Alkaline Phosphatase Troponin T Total Protein Albumin LDL Cholesterol Direct Coronavirus (PCR) 03/18/21 03/18/21 03/18/21 07:06 08:01 09:09 WBC RBC Hgb Hct MCHC RDW Plt Count Lymph % (Auto) Lymph # (Auto) Seg Neutrophils % Seg Neuts % (Manual) Lymphocytes % (Manual) Nucleated RBC % Seg Neutrophils # Man Lymphocytes # (Manual) APTT ABG pH POC ABG pCO2 POC ABG pO2 ABG pO2 ABG HCO3 ABG O2 Saturation ABG Base Excess ABG Hemoglobin Potassium Chloride Carbon Dioxide BUN Creatinine Glucose POC Glucose 60 L 65 L 64 L Calcium Phosphorus Alkaline Phosphatase Troponin T Total Protein Albumin LDL Cholesterol Direct Coronavirus (PCR) 03/18/21 03/18/21 03/18/21 11:37 14:30 20:01 WBC RBC Hgb Hct MCHC RDW Plt Count Lymph % (Auto) Lymph # (Auto) Seg Neutrophils % Seg Neuts % (Manual) Lymphocytes % (Manual) Nucleated RBC % Seg Neutrophils # Man Lymphocytes # (Manual) APTT ABG pH 7.474 H POC ABG pCO2 POC ABG pO2 ABG pO2 451.4 H ABG HCO3 ABG O2 Saturation 99.6 H ABG Base Excess ABG Hemoglobin 7.2 L Potassium Chloride Carbon Dioxide BUN Creatinine Glucose POC Glucose 60 L 39 L Calcium Phosphorus Alkaline Phosphatase Troponin T Total Protein Albumin LDL Cholesterol Direct Coronavirus (PCR) 03/19/21 03/19/21 03/19/21 00:39 03:08 03:08 WBC RBC 2.85 L Hgb 8.3 L Hct 25.4 L MCHC RDW 19.9 H Plt Count 75 L Lymph % (Auto) Lymph # (Auto) Seg Neutrophils % Seg Neuts % (Manual) 98.0 H Lymphocytes % (Manual) 1.0 L Nucleated RBC % 1.0 H Seg Neutrophils # Man 10.6 H Lymphocytes # (Manual) 0.1 L APTT ABG pH POC ABG pCO2 POC ABG pO2 ABG pO2 ABG HCO3 ABG O2 Saturation ABG Base Excess ABG Hemoglobin Potassium Chloride Carbon Dioxide 21 L BUN 49 H Creatinine 5.1 H Glucose 239 H POC Glucose 120 H Calcium 8.0 L Phosphorus 1.90 L Alkaline Phosphatase 154 H Troponin T Total Protein 5.1 L Albumin 2.6 L LDL Cholesterol Direct Coronavirus (PCR) 03/19/21 03/19/21 03/19/21 04:46 05:56 06:05 WBC RBC Hgb Hct MCHC RDW Plt Count Lymph % (Auto) Lymph # (Auto) Seg Neutrophils % Seg Neuts % (Manual) Lymphocytes % (Manual) Nucleated RBC % Seg Neutrophils # Man Lymphocytes # (Manual) APTT ABG pH 7.501 H POC ABG pCO2 28.9 L POC ABG pO2 117.8 H ABG pO2 ABG HCO3 ABG O2 Saturation ABG Base Excess ABG Hemoglobin 8.31 L Potassium Chloride Carbon Dioxide BUN Creatinine Glucose POC Glucose 185 H 184 H Calcium Phosphorus Alkaline Phosphatase Troponin T Total Protein Albumin LDL Cholesterol Direct Coronavirus (PCR) 03/19/21 03/19/21 03/19/21 08:30 09:04 11:45 WBC RBC Hgb Hct MCHC RDW Plt Count Lymph % (Auto) Lymph # (Auto) Seg Neutrophils % Seg Neuts % (Manual) Lymphocytes % (Manual) Nucleated RBC % Seg Neutrophils # Man Lymphocytes # (Manual) APTT ABG pH POC ABG pCO2 POC ABG pO2 ABG pO2 ABG HCO3 ABG O2 Saturation ABG Base Excess ABG Hemoglobin Potassium Chloride Carbon Dioxide BUN Creatinine Glucose POC Glucose 221 H 161 H Calcium Phosphorus Alkaline Phosphatase Troponin T Total Protein Albumin LDL Cholesterol Direct Coronavirus (PCR) Positive A 03/19/21 03/19/21 03/19/21 17:56 20:32 23:05 WBC RBC Hgb Hct MCHC RDW Plt Count Lymph % (Auto) Lymph # (Auto) Seg Neutrophils % Seg Neuts % (Manual) Lymphocytes % (Manual) Nucleated RBC % Seg Neutrophils # Man Lymphocytes # (Manual) APTT ABG pH POC ABG pCO2 POC ABG pO2 ABG pO2 ABG HCO3 ABG O2 Saturation ABG Base Excess ABG Hemoglobin Potassium Chloride Carbon Dioxide BUN Creatinine Glucose POC Glucose 147 H 167 H 183 H Calcium Phosphorus Alkaline Phosphatase Troponin T Total Protein Albumin LDL Cholesterol Direct Coronavirus (PCR) 03/20/21 03/20/21 03/20/21 02:59 04:30 04:30 WBC 17.9 H RBC 2.68 L Hgb 7.6 L Hct 24.9 L MCHC 31 L RDW 21.3 H Plt Count 119 L Lymph % (Auto) Lymph # (Auto) Seg Neutrophils % Seg Neuts % (Manual) Lymphocytes % (Manual) Nucleated RBC % Seg Neutrophils # Man Lymphocytes # (Manual) APTT ABG pH POC ABG pCO2 POC ABG pO2 ABG pO2 ABG HCO3 ABG O2 Saturation ABG Base Excess ABG Hemoglobin Potassium Chloride Carbon Dioxide 13 L D BUN 59 H Creatinine 5.6 H Glucose 318 H POC Glucose 203 H Calcium 8.0 L Phosphorus 6.40 H D Alkaline Phosphatase Troponin T Total Protein Albumin LDL Cholesterol Direct Coronavirus (PCR) 03/20/21 03/20/21 03/20/21 05:58 07:48 12:08 WBC RBC Hgb Hct MCHC RDW Plt Count Lymph % (Auto) Lymph # (Auto) Seg Neutrophils % Seg Neuts % (Manual) Lymphocytes % (Manual) Nucleated RBC % Seg Neutrophils # Man Lymphocytes # (Manual) APTT ABG pH 7.238 L POC ABG pCO2 POC ABG pO2 ABG pO2 381.8 H ABG HCO3 14.5 L ABG O2 Saturation 99.6 H ABG Base Excess -11.9 L ABG Hemoglobin 11.3 L Potassium Chloride Carbon Dioxide BUN Creatinine Glucose POC Glucose 179 H 226 H Calcium Phosphorus Alkaline Phosphatase Troponin T Total Protein Albumin LDL Cholesterol Direct Coronavirus (PCR)
--- NOTE | 2021-03-20 13:09 | Event Note ---
Date: 03/20/21 Patient coded again, PEA arrest, ROSC was achieved. Placed a call to patient's daughter, Yvonne Anderson at [phone]. She was notified of the code and of patient's grave condition. She was again made aware of the likelihood of patient's coding again. She stated that she has not yet reach all of her siblings, she will call them now and give us a call back once they have reached a decision. Patient remains a FULL code at this time.
[2021-03-20] MEDS ORDERED: SODIUM BICARBONATE 150 MEQ in WATER FOR INJECTION (PF) 1,000 ML IV SCH (14:00)
--- NOTE | 2021-03-20 15:12 | Progress Note ---
Assessment and Plan Patient is a 85-year-old male with a past medical history of end-stage renal disease on hemodialysis, hypertension, history of CVA, vascular dementia, cerebral atherosclerosis, and legally blind who was brought to the ED due to bradycardia during hemodialysis session AMS PNA Bradycardia s/p Cadrica arrestx3 Hypotension ESRD on HD-nephrology Anemia H/O CVA Vascular dementia Echo 02/17/2021-EF 55 to 60%, moderate LVH, left ventricular diastolic function is normal, right ventricle systolic function is normal. Left and right atrium are normal in size. Plan: Patient is status post cardiac arrest x3. Per documentation patient had PEA arrest. Patient requiring multiple pressors No beta-blockers due pressors No anticoagulation or antiplatelets due to anemia No NADIA/ARB due to use of pressors and elevated creatinine. Will defer to nephrology for initiation of NADIA or ARB Repeat EKG pending Poor prognosis Patient seen in conjunction with Dr. Alonzo who agrees with this plan of care 30 minutes of critical care time spent on coordination of care for - Patient Problems (1) Bradycardia Current Visit: Yes Status: Acute (2) End stage renal disease Current Visit: Yes Status: Acute (3) Hypothermia Current Visit: Yes Status: Acute (4) Junctional rhythm Current Visit: Yes Status: Acute (5) Obesity hypoventilation syndrome Current Visit: Yes Status: Acute (6) Pneumonia Current Visit: Yes Status: Acute (7) Anemia Current Visit: No Status: Acute (8) Metabolic encephalopathy Current Visit: No Status: Acute Subjective Date of service: 03/20/21 Principal diagnosis: Bilateral pneumonia, CHF exacerbation Interval history: Patient is status post cardiac arrest x3 Patient has switches between junctional rhythm rate trending 110s on monitor Objective Vital Signs Temp Pulse Pulse Resp BP Pulse Ox 03/20/21 15:00 113 H 24 183/56 70 L 03/20/21 14:50 113 H 24 181/57 100 03/20/21 14:41 113 H 24 166/55 68 L 03/20/21 14:30 113 H 24 128/53 70 L 03/20/21 14:20 113 H 24 151/53 80 L 03/20/21 14:10 113 H 24 167/50 100 03/20/21 14:00 113 H 24 161/50 100 03/20/21 13:50 112 H 24 141/51 100 03/20/21 13:40 113 H 22 146/51 100 03/20/21 13:30 113 H 21 144/49 94 03/20/21 13:20 113 H 16 158/53 97 03/20/21 13:10 124 H 20 166/58 89 03/20/21 13:01 164 H 19 220/82 94 03/20/21 12:51 115 H 21 136/44 100 03/20/21 12:40 116 H 26 H 163/52 96 03/20/21 12:30 115 H 30 H 183/57 100 03/20/21 12:20 116 H 36 H 173/62 97 03/20/21 12:16 116 H 172/56 100 03/20/21 12:10 116 H 32 H 167/57 100 03/20/21 12:00 116 H 116 H 26 H 178/56 97 03/20/21 11:56 116 H 03/20/21 11:50 116 H 35 H 160/56 97 03/20/21 11:40 117 H 27 H 173/55 98 03/20/21 11:30 117 H 24 165/53 51 L 03/20/21 11:20 117 H 30 H 166/56 99 03/20/21 11:10 117 H 26 H 181/58 100 03/20/21 11:00 117 H 30 H 181/59 100 03/20/21 10:50 117 H 24 192/60 97 03/20/21 10:40 118 H 24 174/58 91 03/20/21 10:30 118 H 24 199/56 94 03/20/21 10:20 117 H 24 183/56 96 03/20/21 10:10 117 H 24 189/61 97 03/20/21 10:00 117 H 23 183/57 97 03/20/21 09:50 116 H 23 180/57 93 03/20/21 09:40 115 H 24 199/60 96 03/20/21 09:30 109 H 36 H 156/47 89 03/20/21 09:20 111 H 23 156/48 83 L 03/20/21 09:10 117 H 25 H 199/63 98 03/20/21 09:08 114 H 199/63 95 03/20/21 09:00 117 H 26 H 194/62 79 L 03/20/21 08:50 117 H 26 H 194/67 91 03/20/21 08:40 117 H 21 197/69 93 03/20/21 08:30 118 H 16 196/64 55 L 03/20/21 08:28 99.7 F H 03/20/21 08:20 119 H 25 H 184/61 96 03/20/21 08:10 121 H 28 H 191/68 95 03/20/21 08:00 118 H 119 H 22 195/68 90 03/20/21 07:50 119 H 26 H 190/69 43 L 03/20/21 07:48 119 H 03/20/21 07:40 118 H 27 H 182/66 100 03/20/21 07:30 119 H 29 H 189/77 98 03/20/21 07:20 116 H 26 H 177/69 03/20/21 07:10 119 H 23 180/66 63 L 03/20/21 07:00 119 H 28 H 175/57 03/20/21 06:50 133 H 27 H 162/39 93 03/20/21 06:40 149 H 28 H 141/52 84 03/20/21 06:31 170 H 27 H 150/64 03/20/21 06:20 167 H 27 H 153/55 03/20/21 06:11 132 H 23 143/68 89 03/20/21 06:00 145 H 20 174/63 93 03/20/21 05:51 175 H 26 H 149/69 89 03/20/21 05:41 173 H 24 152/76 97 03/20/21 05:30 155 H 28 H 130/64 100 03/20/21 05:21 162 H 28 H 138/74 96 03/20/21 05:11 172 H 26 H 158/77 98 03/20/21 05:01 170 H 23 154/67 38 L 03/20/21 05:00 172 H 158/77 99 03/20/21 04:51 171 H 27 H 180/59 39 L 03/20/21 04:41 168 H 25 H 189/69 48 L 03/20/21 04:31 158 H 24 157/72 03/20/21 04:21 155 H 26 H 201/79 03/20/21 04:11 150 H 22 179/60 03/20/21 04:01 135 H 22 200/71 03/20/21 04:00 174 H 170 H 24 91 03/20/21 03:51 164 H 25 H 174/67 03/20/21 03:44 98.8 F 03/20/21 03:41 132 H 22 153/69 03/20/21 03:31 172 H 26 H 164/77 03/20/21 03:21 170 H 21 169/77 03/20/21 03:11 130 H 25 H 197/59 03/20/21 03:01 144 H 21 143/62 03/20/21 02:50 162 H 22 147/92 03/20/21 02:40 131 H 21 149/68 03/20/21 02:31 156 H 22 165/60 03/20/21 02:21 151 H 25 H 180/67 03/20/21 02:11 152 H 25 H 184/60 03/20/21 02:01 166 H 26 H 208/76 03/20/21 01:51 162 H 19 174/56 03/20/21 01:41 163 H 25 H 218/79 03/20/21 01:31 158 H 24 204/54 03/20/21 01:21 157 H 25 H 222/77 03/20/21 01:11 160 H 19 131/80 03/20/21 01:01 171 H 22 197/76 03/20/21 00:51 134 H 21 174/43 03/20/21 00:41 147 H 22 195/58 03/20/21 00:31 165 H 18 186/68 03/20/21 00:15 142 H 21 172/70 03/20/21 00:07 157 H 25 H 198/62 03/20/21 00:01 160 H 19 153/87 03/20/21 00:00 175 H 170 H 24 91 03/19/21 23:45 140 H 21 208/76 03/19/21 23:35 98.6 F 03/19/21 23:31 162 H 21 210/74 03/19/21 23:15 156 H 20 186/69 58 L 03/19/21 23:00 141 H 21 195/79 54 L 03/19/21 22:45 162 H 21 201/72 54 L 03/19/21 22:31 173 H 17 145/86 81 L 03/19/21 22:15 148 H 16 151/86 01/20/22 22:01 148 H 21 175/79 03/19/21 21:45 166 H 15 158/70 03/19/21 21:31 152 H 21 165/64 03/19/21 21:15 150 H 20 157/63 03/19/21 21:01 162 H 19 179/80 03/19/21 20:45 176 H 22 181/62 03/19/21 20:31 178 H 22 186/48 03/19/21 20:15 152 H 21 228/78 03/19/21 20:01 149 H 23 187/57 96 03/19/21 20:00 97.3 F L 138 H 140 H 24 191/66 91 03/19/21 19:45 133 H 17 201/73 87 03/19/21 19:31 134 H 23 229/75 03/19/21 19:15 135 H 24 204/79 03/19/21 19:01 138 H 18 187/103 50 L 03/19/21 18:45 134 H 20 187/82 03/19/21 18:31 133 H 21 191/66 03/19/21 18:15 97.2 F L 132 H 19 186/61 100 03/19/21 18:01 130 H 13 188/72 03/19/21 17:45 125 H 20 215/79 03/19/21 17:44 24 91 03/19/21 17:31 134 H 18 232/90 03/19/21 17:15 91 H 24 162/52 03/19/21 17:01 129 H 14 175/65 03/19/21 16:52 124 H 03/19/21 16:45 132 H 19 187/74 03/19/21 16:31 134 H 24 188/72 96 03/19/21 16:15 131 H 24 195/80 92 03/19/21 16:00 134 H 24 200/76 03/19/21 15:59 132 H 200/76 100 03/19/21 15:45 166 H 75 H 76/26 03/19/21 15:30 99 H 23 84/34 03/19/21 15:15 72 - Physical Examination General: Other (Altered mental status) HEENT: Positive: Mucus Membranes Dry Neck: Positive: trachea midline Cardiac: Positive: Regular Rhythm, Tachycardia Neuro: Positive: Other (Altered mental) Abdomen: Positive: Soft Skin: Positive: Cool Extremities: Present: upper extr. pulses. Absent: edema - Labs and Meds CBC 03/20/21 Range/Units 04:30 WBC 17.9 H (4.5-11.0) K/mm3 RBC 2.68 L (3.65-5.03) M/mm3 Hgb 7.6 L (11.8-15.2) gm/dl Hct 24.9 L (35.5-45.6) % Plt Count 119 L (140-440) K/mm3 Comprehensive Metabolic Panel 03/20/21 Range/Units 04:30 Sodium 142 (137-145) mmol/L Potassium 4.5 (3.6-5.0) mmol/L Chloride 103.0 (98-107) mmol/L Carbon Dioxide 13 L D (22-30) mmol/L BUN 59 H (9-20) mg/dL Creatinine 5.6 H (0.8-1.3) mg/dL Glucose 318 H (75-100) mg/dL Calcium 8.0 L (8.4-10.2) mg/dL - Imaging and Cardiology Echo: report reviewed - Telemetry EKG Rhythm: Junctional - EKG Supraventricular dysrhythmia: junctional rhythm
[2021-03-20] MEDS: CEFEPIME/NS 1 GM/100 ML 1 GM/100 ML BAG IV SCH (16:15)
[2021-03-20] MEDS: fentaNYL DRIP Premix 2,000 MCG/100 ML BAG IV SCH (17:54)
[2021-03-20 19:16] VITALS: BP 46/27
--- NOTE | 2021-03-20 21:00 | Death Note ---
Note Date of : 03/20/21 Time of : 18:15 Time Pronounced: 19:15 - Preliminary Cause of (problem) (1) Pneumonia Preliminary cause of (2) End stage renal disease Preliminary cause of (3) Sick sinus syndrome Preliminary cause of (4) Obesity hypoventilation syndrome Preliminary cause of (5) DVT prophylaxis Preliminary cause of (6) Advance care planning Preliminary cause of
--- NOTE | 2021-03-22 20:52 | Electrocardiograph Report ---
[facility] Test Date: 2021-03-16 Test Time: 17:04:25 Pat Name: SANA NAM JR Department: Room: A263 Gender: [employer]: NANCY : 1935 Requested By: VEDA SHETH Order Number: [id number] Reading MD: Gordo Jimenez Measurements Intervals [place] Rate: 33 P: MA: QRS: 42 QRSD: 167 T: 49 QT: 674 QTc: 502 Interpretive Statements Junctional rhythm Nonspecific intraventricular conduction delay Prolonged QT interval [id number] Compared to ECG 02/19/2021 06:37:33 Junctional rhythm now present Intraventricular conduction delay now present Prolonged QT interval now present Sinus rhythm no longer present Electronically Signed On 03-22-2021 20:52:13 EST by Gordo Jimenez
--- NOTE | 2021-03-24 13:28 | Death Summary ---
Summary - Providers Date of service: 03/24/21 Consults: 03/16/21 18:08 Consult to Physician [CONS] Stat Comment: Consulting Provider: IDANIA LYN Physician Instructions: Reason For Exam: sick sinus syndrome 03/16/21 18:28 Consult to Physician [CONS] Stat Comment: Consulting Provider: MIGUEL OCONNOR Physician Instructions: Reason For Exam: ESRD 03/18/21 07:40 Consult to Physician [CONS] Routine Comment: Consulting Provider: ROSSY LEWIS Physician Instructions: Reason For Exam: septic shock, intubation 03/18/21 14:15 Consult to Case Management [CONS] Routine Services Needed at Discharge: Other Comment:: discharge planning, legal decision maker. 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 Patient was found with diminished cognition and was unable to provide detailed history. Patient history provided as per ED staff, EMS staff, as well as personal skilled nursing staff. As per personal skilled nursing staff the patient was sent to dialysis on 03/16/21 and was found to have a heart rate in the 30s while undergoing dialysis. Patient returned from dialysis and was found to be confused and "not acting like himself". Patient experienced worsening symptoms over the ensuing timeframe. EMS was notified and upon arrival the patient was found to be in distress and subsequently transported to [facility] for further care and evaluation of the aforementioned symptoms. Patient found to have a systolic blood pressure in the 90s as well as clinical symptoms consistent with sick sinus syndrome. Chest x-ray showed evidence for pneumonia. Patient was admitted for sepsis secondary to pneumonia, bradycardia, and metabolic encephalopathy. On 03/18/21 patient went into respiratory distress was intubated and placed on ventilatory support. While in the ICU patient condition continue to worsen. Patient's COVID PCR came back positive, his metabolic acidosis continue to worsen most likely due septic shock requirinf multiple pressors and patient was too unstable for HD. Patient on also on IV antibiotics, IV steroids, and a sodium bcard drip. Patient ended coding and went into cardiac arrest with ROSC four times. After multiple discussion with patient's daughters and brother explaining patient's grave condition and very poor prognosis. On 03/20 after the patient fourth cardiac arrest with ROSC, received a call from patient's daughter-Yvonne Anderson at [phone], who also included most of the patient's children on the call. They voiced that their "father would not have want to go through this" and opted for AND/DNT status. The AND paperworks was signed by two physicians and witnessed by this DEVELOPMENT ADMINISTRATOR. Patient passed on 03/20/21 at 1815 and was pronounced on 03/20/21 at 1915.
== END 2021-03-20 23:15 | DRG 871 ==
LOC: ED 16:10 → 4A 18:54 → CC1 03-17 18:38
PROVIDERS: ADMIT Internal Medicine; ATTEND Internal Medicine
PROC: 5A1945Z Respiratory Ventilation, 24-96 Consecutive Hours (ICD-10-PCS; principal; 2021-03-18)
PROC: 0BH17EZ Insertion of Endotracheal Airway into Trachea, Via Natural or Artificial Opening (ICD-10-PCS; 2021-03-18)
PROC: 4A033R1 Measurement of Arterial Saturation, Peripheral, Percutaneous Approach (ICD-10-PCS; 2021-03-18)
PROC: 06HM33Z Insertion of Infusion Device into Right Femoral Vein, Percutaneous Approach (ICD-10-PCS; 2021-03-19)
PROC: B54BZZA Ultrasonography of Right Lower Extremity Veins, Guidance (ICD-10-PCS; 2021-03-19)
DX: A41.9 Sepsis, unspecified organism (principal); N18.6 End stage renal disease; R65.21 Severe sepsis with septic shock; J96.01 Acute respiratory failure with hypoxia; G93.41 Metabolic encephalopathy; U07.1 COVID-19; J12.82 Pneumonia due to coronavirus disease 2019; I12.0 Hypertensive chronic kidney disease with stage 5 chronic kidney disease or end stage renal disease; E66.2 Morbid (severe) obesity with alveolar hypoventilation; N25.81 Secondary hyperparathyroidism of renal origin; I49.5 Sick sinus syndrome; E11.22 Type 2 diabetes mellitus with diabetic chronic kidney disease; Z68.32 Body mass index [BMI] 32.0-32.9, adult; Z83.3 Family history of diabetes mellitus; Z82.49 Family history of ischemic heart disease and other diseases of the circulatory system; D63.1 Anemia in chronic kidney disease; F01.50 Vascular dementia, unspecified severity, without behavioral disturbance, psychotic disturbance, mood disturbance, and anxiety; E11.65 Type 2 diabetes mellitus with hyperglycemia; D69.6 Thrombocytopenia, unspecified; I46.9 Cardiac arrest, cause unspecified
CPT/HCPCS: 36415; 36600; 71045; 74018; 80048; 80053; 80061; 80074; 80202; 82140; 82533; 82803; 82805; 82962; 83735; 84100; 84145; 84439; 84443; 84481; 84484; 85007; 85025; 85027; 85610; 85730; 87040; 87070; 87076; 87186; 87205; 93005; 93010; 94002; 94003; G0378; J2354; J3490; Q0162; J0171; J0330; J0456; J0692; J0696; J1200; J1265; J1720; J1815; J3010; J3370; J7030; J7040; J7050; U0003